=== PATIENT | female | born 1940 | race Caucasian/White ===

== ENCOUNTER → 2017-04-25 | Outpatient (CLI) | payer MEDICARE | END | disposition home or self-care (01) | LOC: LABWHC1 10:49 | PROVIDERS: ATTEND Orthopaedic Surgery | DX: Z01.812 Encounter for preprocedural laboratory examination (principal) | CPT/HCPCS: 87070 ==

== ENCOUNTER → 2017-05-11 | Outpatient (CLI) | payer MEDICARE ==
[2017-05-11 09:01] LABS: EKG EKG PERFORMED
[2017-05-11 09:38] LABS: CH 32.6; CHCM 33.5; HCT 39.4 % (34.0-46.0); HDW 2.22; HGB 13.5 gm/dL (11.4-16.0); MCH 33.4 pg (25.0-35.0); MCHC 34.1 g/dL (31.0-37.0); MCV 97.9 fL (80.0-100.0); Mean Platelet Volume 6.9; RBC 4.03 m/uL (3.80-5.40); RDW 13.8 % (11.5-15.5); WBC 6.5 k/uL (3.8-10.6)
[2017-05-11 09:43] LABS: INR 1.1 (<1.1); Partial Thromboplastin Time 24.8 sec (22.0-30.0); Prothrombin Time 11.5 sec (9.0-12.0)
[2017-05-11 09:44] LABS: Appearance,Urine Cloudy (Clear); Bacteria,Urine Moderate /hpf; Bilirubin,Urine Negative (Negative); Glucose,Urine (UA) Negative (Negative); Ketones,Urine Negative (Negative); Leukocyte Esterase,Urine Large (Negative); Mucus,Urine Rare /hpf; Nitrite,Urine Negative (Negative); PH, Urine 6.5 (5.0-8.0); Particle Count 22800; Protein,Urine Negative (Negative); RBC,Urine 4 /hpf (0-5); Squamous Epithelial Cell,Urine 1 /hpf (0-4); UA Billing (MACRO vs. MICRO) MICRO; Urobilinogen,Urine <2.0 mg/dL (<2.0); WBC,Urine 144 /hpf (0-5)
[2017-05-11 09:47] LABS: ALT 20 U/L (9-52); AST 28 U/L (14-36); Alkaline Phosphatase 63 U/L (38-126); Anion Gap 10 mmol/L; Blood Urea Nitrogen 25 mg/dL (7-17); Calcium 9.4 mg/dL (8.4-10.2); Carbon Dioxide 27 mmol/L (22-30); Chloride 102 mmol/L (98-107); Glucose 88 mg/dL (74-99); Non-African American GFR(MDRD) >60 (>60 ml/min/1.73 sqM); Sodium 139 mmol/L (137-145); Total Bilirubin 0.8 mg/dL (0.2-1.3); Total Protein 6.7 g/dL (6.3-8.2)
[2017-05-11 09:52] LABS: Potassium 4.3 mmol/L (3.5-5.1)
== END | disposition home or self-care (01) ==
LOC: LABPAT 08:53
PROVIDERS: ATTEND Orthopaedic Surgery
DX: Z01.812 Encounter for preprocedural laboratory examination (principal)
CPT/HCPCS: 80053; 81001; 85027; 85610; 85730; 93005

== ENCOUNTER → 2017-05-18 | Outpatient (CLI) | payer MEDICARE ==
[2017-05-18 13:14] LABS: Appearance,Urine Clear (Clear); Bilirubin,Urine Negative (Negative); Glucose,Urine (UA) Negative (Negative); Ketones,Urine Negative (Negative); Leukocyte Esterase,Urine Negative (Negative); Nitrite,Urine Negative (Negative); PH, Urine 6.5 (5.0-8.0); Protein,Urine Negative (Negative); Specific Gravity,Urine 1.012 (1.001-1.035); UA Billing (MACRO vs. MICRO) CHEM; Urobilinogen,Urine <2.0 mg/dL (<2.0)
== END | disposition home or self-care (01) ==
LOC: LABWHC1 12:28
PROVIDERS: ATTEND Family Medicine
DX: N39.0 Urinary tract infection, site not specified (principal)
CPT/HCPCS: 81003

== ENCOUNTER 2017-05-22 06:00 | Inpatient (IN) | payer MEDICARE ==
[2017-05-18 10:14] VITALS: BMI 25.2
[~2017-05-22 06:00] MED LIST: ACETAMINOPHEN TAB 500 MG TAB PO ONE; DEXAMETHASONE SOD PHOSPHATE 10 MG/ML 1 ML VIAL IV ONE; HYDROmorphone 1 MG/ML 1 ML SYRINGE IVP PRN; MELOXICAM 7.5 MG TAB PO ONE; ONDANSETRON 4 MG/2 ML VIAL IVP ONE; TRANEXAMIC ACID 1,000 MG in SODIUM CHLORIDE 0.9% 100 ML IVPB ONE; ceFAZolin 2 GM in SODIUM CHLORIDE 0.9% 100 ML IVPB ONE
[2017-05-22] MEDS: LACTATED RINGERS 1,000 ML IV SCH (06:45)
[2017-05-22] MEDS: fentaNYL (PF) 50 MCG/ML 2 ML AMP IV ONE ×3 (06:56→07:13)
[2017-05-22] MEDS: MIDAZOLAM 2 MG/2 ML VIAL IV ONE ×3 (07:00→07:17)
[2017-05-22] MEDS ORDERED: TRANEXAMIC ACID 1,000 MG/10 ML VIAL ONE (07:24)
[2017-05-22] MEDS ORDERED: PHENYLEPHRINE-0.9% NACL SYG 1 MG/10 ML SYRINGE ONE (07:24)
[2017-05-22] MEDS ORDERED: PROPOFOL 10 MG/ML 100 ML VIAL IV ONE (07:24)
[2017-05-22] MEDS ORDERED: SODIUM CHLORIDE 0.9% 100 ML BAG ONE (07:24)
[2017-05-22] MEDS ORDERED: MIDAZOLAM 2 MG/2 ML VIAL ONE (07:24)
[2017-05-22] MEDS ORDERED: HEPARIN SODIUM,PORCINE 10,000 UNIT/ML 1 ML VIAL ONE (07:24)
[2017-05-22] MEDS ORDERED: HYDROmorphone (PF) 1 MG/ML ONE (07:24)
[2017-05-22] MEDS ORDERED: ceFAZolin 3,000 MG in SODIUM CHLORIDE 0.9% IRRIGATIO 3,000 ML IRRIGATION ONE (07:24)
[2017-05-22] MEDS ORDERED: SODIUM CHLORIDE 0.9% IRRIG 1,000 ML BTL IRRIGATION ONE (07:24)
[2017-05-22] MEDS: ROPIVACAINE 246.25 MG, EPINEPHrine 0.5 MG, KETOROLAC 30 MG, cloNIDine HCL/PF 80 MCG, WA... MISCELLANE ONE ×10 (07:55→08:31)
[2017-05-22] MEDS ORDERED: LACTATED RINGERS 1,000 ML IV ONE (08:47)
--- NOTE | 2017-05-22 08:58 | FL ---
EXAMINATION TYPE: FL guidance operating room, XR Hip Limited RT DATE OF EXAM: 05/22/2017 CLINICAL HISTORY: Right hip arthoplasty. TECHNIQUE: Fluoroscopy. Intraoperative limited views right hip. COMPARISON: None. FINDINGS: Fluoroscopic guidance was provided during right hip arthroplasty procedure performed by Dr Ese Mcallister. A total of 32 seconds of fluoroscopic time was utilized during the procedure and 2 spot images are acquired. Intraoperative images of right hip from frontal projection show metallic hardware that appears satisf actory in position. IMPRESSION: As Above.
--- NOTE | 2017-05-22 08:59 | P.OP ---
Date of Procedure: 05/22/17 Preoperative Diagnosis: Severe osteoarthritis right hip Postoperative Diagnosis: Severe osteoarthritis right hip Procedure(s) Performed: Right total hip arthroplasty with a direct anterior approach Implants: [employer] and nephew Polarstem size 2 standard [employer]hew R3, 3 hole acetabular shell, 48 mm [employer]hew reflection 6.5 mm cancellus screw, 20 mm 3 [employer] R3, XLPE 20 acetabular liner [employer]hew Oxinium femoral head 32 m, +0 All components were press-fit. The articulation is ceramic on polyethylene. Anesthesia: spinal Surgeon: Gamal Mcallister Nuclear Medical Technologist #1: Zahira Goel Estimated Blood Loss (ml): 175 (66 mL returned with Cell Saver) Pathology: other (Femoral head) Condition: stable Disposition: PACU Indications for Procedure: After failure of conservative treatment we discussed the surgical and nonsurgical treatment options at length. Patient wishes to proceed with a total hip arthroplasty with a direct anterior approach. Complications specific to this procedure were discussed at length, including but not limited to infection, leg length discrepancy, dislocation, and nerve injury. Patient is aware of all these complications and informed consent was obtained Operative Findings: The operative findings are consistent with severe osteoarthritis of the right hip Description of Procedure: Patient was seen and evaluated in the preoperative area, consent was reviewed, and the surgical site was marked with a skin marker. Patient was then brought to the operating room and given prophylactic antibiotics intravenously. 1 g of Tranexamic acid was also given. A spinal anesthetic was administered by the anesthesia department. The patient was then placed on the [place] table with the bony prominences well-padded. The hip area was then prepped and draped in usual sterile fashion. A universal timeout was then performed, which confirmed the patient's name, surgical site, ALLERGIES, and procedure being performed. Next the incision site was located at 1 cm distal and 1 cm lateral to the anterior superior iliac spine. The skin and subcutaneous tissues were sharply incised. Incision was carefully dissected down to the fascia overlying the tensor fascia dean muscle. This fascia was then incised in line with the incision. Next, using blunt finger dissection, the tensor fascia dean muscle was dissected off its investing fascia. The muscle was then carefully retracted laterally with a cobra retractor over the lateral neck of the femur. Next, the circumflex vessels were identified and cauterized using the AquaMantis device. The anterior hip capsule was then exposed. The capsule was then opened and an inverted T fashion. Retention sutures were placed in the inferior arms of the capsule. Cobra retractors were then placed intracapsularly. The proximal femur was then visualized. The femoral neck was then osteotomized appropriate level above the lesser trochanter. Small amount of traction was placed with the [place] table. A small wedge of bone was then removed from the remaining femoral head. Next, using a corkscrew femoral head was easily removed from the acetabulum. On gross visual inspection, the femoral head had complete loss of articular cartilage in multiple periarticular osteophytes. Attention was then turned to the acetabulum. the acetabulum was exposed and any remaining labrum was excised. Sequential reaming of the acetabulum was performed using fluoroscopic guidance. When the appropriate size was reached, a trial was then placed. The position and fit of the trial was checked with fluoroscopy. The trial was then removed. Then, using fluoroscopic guidance, the final implant was impacted at 20 of anteversion and 40 of abduction, and fully seated in the acetabulum. 3 screws were then placed in the acetabulum. Again fluoroscopy was used to check position of the screws. Next, the liner was then impacted, with a 20 elevated liner located in the anterior superior quadrant. Component locking was confirmed. Attention was then directed to the femur. With the aid of the [place] table, the femur was externally rotated to approximately 130, extended, and abducted under the opposite leg. A side hook was then placed under the proximal femur, and the side hook elevator was used to elevate the proximal femur. Retractors were then placed. A capsular release was performed, as well as a release of the conjoined tendon, which afforded excellent visualization of the proximal femur. Next, a box osteotome was used to lateralize the proximal femur. A acid correction hand was then used to locate the femoral canal. Sequential broaching was then performed with appropriate size which afforded excellent fixation in the proximal femur. A trial was then placed with appropriate head and neck, and the hip was gently reduced with the aid of the [place] table. Fluoroscopy was then used to check position of the components, as well as to ensure equal leg lengths. The hip was then gently dislocated and the trials were then removed. Final implants were then impacted and the hip was again reduced. Final fluoroscopic x-rays confirmed that the components were in anatomic position, as well as equal leg lengths. The hip was also taken through range of motion, and found to be stable. The hip was then copiously irrigated with antibiotic solution with pulsatile lavage. The hip was then irrigated with Irrisept solution. The soft tissues were then injected with a ropivacaine solution, which consisted of 246.25 mg of ropivacaine, 0.5 mg of epinephrine, 30 mg of Toradol, 80 g of clonidine, and 48.45 mL of sterile water, for a total of 100 mL of fluid injected. A second dose of 1 g of Tranexamic acid was also given. the fascia was then closed with 2-0 strata fix suture. The subcutaneous tissue was closed with 3-0 Vicryl. The subcuticular tissue was closed with 3-0 strata fix suture. The skin was then closed with Dermabond tape. The patient was then transferred to the recovery room in stable condition. The assistant professor of theater NICHOLAS Walker was required due to the complexity of surgery, and the need for skilled surgical tech for positioning, draping, exposure, retraction, and closure of the wound.
[2017-05-22] MEDS ORDERED: DIAZEPAM 5 MG TAB PO PRN ×2 (09:13)
[2017-05-22] MEDS ORDERED: NALOXONE 0.4 MG/ML 1 ML VIAL IV PRN (09:13)
[2017-05-22] MEDS ORDERED: MAGNESIUM HYDROXIDE 2,400 MG/10 ML CUP PO PRN (09:13)
[2017-05-22] MEDS ORDERED: HYDROmorphone 1 MG/ML 1 ML SYRINGE IVP PRN ×3 (09:13)
[2017-05-22] MEDS ORDERED: hydrOXYzine PAMOATE 25 MG CAP PO PRN (09:13)
--- NOTE | 2017-05-22 09:45 | XR ---
EXAMINATION TYPE: XR Hip Limited RT DATE OF EXAM: 05/22/2017 CLINICAL HISTORY: Right hip pain and osteoarthritis. TECHNIQUE: Single AP portable view of right hip is obtained immediately postoperatively. COMPARISON: None. FINDINGS: Metallic hardware from right hip arthroplasty is seen and appears satisfactory in alignment and position. There is evidence of recent surgery with subcutaneous gas and soft tissue swelling no rosa m laterally. IMPRESSION: Metallic hardware from right hip arthroplasty is satisfactory in position.
[2017-05-22] MEDS ORDERED: ACETAMINOPHEN TAB 325 MG TAB PO PRN (15:30)
[2017-05-22] MEDS: ceFAZolin 2 GM in SODIUM CHLORIDE 0.9% 100 ML IVPB SCH ×2 (16:30→23:12)
[2017-05-22] MEDS: HYDROcodone/APAP 5-325MG 1 EACH TAB PO PRN ×2 (17:15→23:23)
[2017-05-22] MEDS: ONDANSETRON 4 MG/2 ML VIAL IVP PRN (18:09)
[2017-05-22] MEDS: ARTIFICIAL TEARS-HYPROMELLOSE DROPS 15 ML BTL BOTH EYES SCH (20:18)
[2017-05-22] MEDS: PSYLLIUM HUSK 100% 6 GM PACKET PO SCH (20:19)
[2017-05-22] MEDS: ASPIRIN 325 MG TAB PO SCH (20:20)
[2017-05-22] MEDS: SENNOSIDES-DOCUSATE SODIUM 1 EACH TAB PO SCH ×2 (20:20→23:23)
[2017-05-22] MEDS: SODIUM CHLORIDE 0.9% 1,000 ML IV SCH (23:12)
[2017-05-23] MEDS: HYDROcodone/APAP 5-325MG 1 EACH TAB PO PRN ×4 (05:20→23:28)
[2017-05-23] MEDS: SODIUM CHLORIDE 0.9% 1,000 ML IV SCH ×2 (05:58→11:25)
--- NOTE | 2017-05-23 07:01 | CONS ---
REASON FOR CONSULTATION: Advice regarding GERD and other multiple medical issues requested by Orthopedics and Dr. Mcallister. HISTORY OF PRESENT ILLNESS: This 76 year old woman with past medical history of chest pain, angina, history of GERD, sleep apnea, hypothyroidism, underwent right hip arthroplasty by Dr. Mcallister. There is no history of fevers, rigors or chills. No history of headache, loss of consciousness or seizures. No history of chest pain or palpitations at this time. Past medical history of GERD, history of chest pain, sleep apnea, hypothyroidism , history of DJD. Medications prior to admission home medications are reviewed and include: 1. Evista 60 mg po daily. 2. Metamucil 5 mg q.h.s. 3. Systane one drop b.i.d. 4. Prilosec 20 mg q48 hours. 5. Multivitamins one daily. 6. Synthroid 176 mcg po Sunday and 18 mcg on other days. 7. Celebrex 100 mg po b.i.d. 8. Vitamin D3 one po daily. 9. Aspirin 81 mg po daily. 10. Tylenol. 1000 mg po t.i.d. ALLERGIES ARE ULTRAM. FAMILY HISTORY: No history of heart disease or stroke in the family. SOCIAL HISTORY: No history of smoking. No history of alcohol. REVIEW OF SYSTEMS: HEENT: No diminished vision. No diminished hearing. CARDIOVASCULAR: No angina or palpitations. RESPIRATIONS: No cough. GI: No nausea or vomiting. : No dysuria. NERVOUS SYSTEM: No numbness or weakness. ALLERGY/IMMUNOLOGY: No asthma or hayfever. MUSCULOSKELETAL: As mentioned earlier. HEMATOLOGY/ONCOLOGY: No anemia. ENDOCRINE: As mentioned earlier. CONSTITUTIONAL: As mentioned earlier. DERMATOLOGY: Negative. RHEUMATOLOGY: Negative. PSYCHIATRY: As mentioned earlier. PHYSICAL EXAMINATION: Alert and oriented times three. Pulse is 70. Blood pressure 130/64. Respiratory rate 16. Temperature 97.4, pulse ox 97% on 2 L. HEENT: Conjunctivae normal. Oral mucosa moist. NECK: No JVD. No carotid bruit. No lymph node enlargement. CARDIOVASCULAR: S1, S2 muffled. No S3, no S4. RESPIRATORY: Breath sounds diminished at the bases. No rhonchi. No crackles. ABDOMEN: Soft, nontender. No mass palpable. LEGS: Status post right hip. Otherwise, nervous system: Higher functions as mentioned. Moves all four limbs. No focal deficits. Lymphatics: No lymph nodes palpable in the neck or axilla. Skin: No ulcer, rash or bleeding. Labs are CBC within normal limits. Biochemistry is iron is 25 and ferritin is 9. ( ) 74. UA shows 144 WBCs previously about a week ago. ASSESSMENT: 1. Status post right hip arthroplasty. 2. History of recent urinary tract infection. 3. Gastroesophageal reflux disease. 4. History of sleep apnea. 5. Hypothyroidism. 6. Degenerative joint disease. RECOMMENDATIONS AND DISCUSSION: This 76 year old woman presented with ( ) recommend to continue the current medications, continue symptomatic treatment. Resume the home medications. I would also recommend repeat CBC in the morning as well as UA with micro also. We will follow the patient closely with you. Thank you Dr. Mcallister for letting us participate in the care of this patient. MELISSA
[2017-05-23] MEDS: LACTATED RINGERS 1,000 ML IV SCH (07:02)
[2017-05-23 07:26] LABS: Basophils % (A) 0 %; CH 32.2; CHCM 34.5; Eosinophils # (A) 0.1 k/uL (0-0.7); Eosinophils % (A) 1 %; HCT 29.4 % (34.0-46.0); HDW 2.33; Luc # (Auto) 0.13; Luc % (Auto) 1; Lymphocytes # (A) 1.4 k/uL (1.0-4.8); Lymphocytes % (A) 15 %; MCH 32.8 pg (25.0-35.0); MCHC 34.9 g/dL (31.0-37.0); Mean Platelet Volume 6.9; Monocytes # (A) 0.6 k/uL (0-1.0); Monocytes % (A) 7 %; Neutrophils # (A) 7.4 k/uL (1.3-7.7); Neutrophils % (A) 77 %; RBC 3.13 m/uL (3.80-5.40); RDW 13.8 % (11.5-15.5); WBC 9.7 k/uL (3.8-10.6)
[2017-05-23 07:39] LABS: HGB 10.2 gm/dL (11.4-16.0)
[2017-05-23] MEDS: ARTIFICIAL TEARS-HYPROMELLOSE DROPS 15 ML BTL BOTH EYES SCH ×2 (08:46→20:44)
[2017-05-23] MEDS: LEVOTHYROXINE 88 MCG TAB PO SCH (08:46)
[2017-05-23] MEDS: CALCIUM CARB-VIT D 500MG-200UN 1 EACH TAB PO SCH (08:48)
[2017-05-23] MEDS: ASPIRIN 325 MG TAB PO SCH ×2 (08:48→20:44)
[2017-05-23] MEDS: MELOXICAM 7.5 MG TAB PO SCH (08:49)
--- NOTE | 2017-05-23 08:56 | P.PN ---
Subjective Principal diagnosis: Status post right total hip arthroplasty This is a well-appearing 76-year-old female who is status post right total hip arthroplasty. This is postoperative day #1. Patient is seen and evaluated at bedside with Dr. Gamal Mcallister. Patient states her pain is under control but is slightly worse today. Patient states she has been up out of bed couple of times and is to do more physical therapy today. Otherwise patient states she is doing well and has no new complaints. Objective - Vital Signs Vital signs: Vital Signs Temp 97.8 F 05/23/17 07:23 Pulse 74 05/23/17 07:34 Resp 18 05/23/17 07:34 BP 111/53 05/23/17 07:23 Pulse Ox 95 05/23/17 07:23 Intake & Output 05/22/17 05/23/17 05/23/17 18:59 06:59 18:59 Intake Total 1201 590 180 Output Total 375 600 Balance 826 -10 180 Weight 58.513 kg 58.513 kg Intake: IV 1001 Intake, IV Titration 240 Amount Sodium Chloride 0.9% 1, 240 000 ml @ 65 mls/hr IV . [id number] [facility] Rx#:[id number] Oral 200 350 180 Output: Urine 200 600 Estimated Blood Loss 175 Other: Voiding Method Bedside Commode Toilet # Voids 3 - Exam Vital signs are stable. Patient is in no acute distress and is alert and oriented 3. Calf is soft and nontender. Dressing is intact. Neurovascular status intact. Patient has full foot and ankle motion. - Labs CBC & Chem 7: 05/23/17 06:34 Labs: Abnormal Lab Results - Last 24 Hours (Table) 05/23/17 Range/Units 06:34 RBC 3.13 L (3.80-5.40) m/uL Hgb 10.2 L D (11.4-16.0) gm/dL Hct 29.4 L (34.0-46.0) % Assessment and Plan Plan: Continue routine postop care. Continue antocoagulation. Weightbearing as tolerated with a walker Daily dressing changes, keep incision clean and dry Patient is planning to discharge to rehab on Sunday
[2017-05-23] MEDS: MULTIVITAMINS, THERA 1 EACH TAB PO SCH (11:23)
[2017-05-23] MEDS: RALOXIFENE 60 MG TAB PO SCH (15:18)
--- NOTE | 2017-05-23 15:25 | P.PN ---
Subjective This is a well-appearing 76-year-old female who is status post right total hip arthroplasty. Patient will be restarted back on her Evasta. REVIEW OF SYSTEMS: CARDIOVASCULAR: No chest pain, no orthopnea, no PND, no palpitations. PULMONARY: Denied any shortness of breath. No cough or hemoptysis. GASTROINTESTINAL: No diarrhea, nausea or vomiting. No abdominal pain. Normoactive bowel sounds. NEUROLOGIC: No headaches, no weakness, no numbness. Objective - Vital Signs Vital signs: Vital Signs Temp 97 F L 05/23/17 13:35 Pulse 82 05/23/17 13:35 Resp 16 05/23/17 13:35 BP 90/53 05/23/17 13:35 Pulse Ox 96 05/23/17 13:35 Intake & Output 05/22/17 05/23/17 05/23/17 18:59 06:59 18:59 Intake Total 1201 590 430 Output Total 375 600 Balance 826 -10 430 Weight 58.513 kg 58.513 kg Intake: IV 1001 250 Sodium Chloride 0.9% 1, 250 000 ml @ 65 mls/hr IV . [id number] [facility] Rx#:[id number] Intake, IV Titration 240 Amount Sodium Chloride 0.9% 1, 240 000 ml @ 65 mls/hr IV . [id number] [facility] Rx#:[id number] Oral 200 350 180 Output: Urine 200 600 Estimated Blood Loss 175 Other: Voiding Method Bedside Commode Toilet # Voids 3 - Exam PHYSICAL EXAMINATION: GENERAL: The patient is alert and oriented x3, not in any acute distress. Well developed, well nourished. HEENT: Pupils are round and equally reacting to light. EOMI. No scleral icterus. No conjunctival pallor. Normocephalic, atraumatic. No pharyngeal erythema. No thyromegaly. CARDIOVASCULAR: S1 and S2 present. No murmurs, rubs, or gallops. PULMONARY: Chest is clear to auscultation, no wheezing or crackles. ABDOMEN: Soft, nontender, nondistended, normoactive bowel sounds. No palpable organomegaly. MUSCULOSKELETAL: Deferred to primary service EXTREMITIES: No cyanosis, clubbing, or pedal edema. NEUROLOGICAL: Gross neurological examination did not reveal any focal deficits. SKIN: No rashes. - Labs CBC & Chem 7: 05/23/17 06:34 Labs: Abnormal Lab Results - Last 24 Hours (Table) 05/23/17 Range/Units 06:34 RBC 3.13 L (3.80-5.40) m/uL Hgb 10.2 L D (11.4-16.0) gm/dL Hct 29.4 L (34.0-46.0) % Assessment and Plan Plan: #1 status post right hip arthroplasty: No significant postoperative complications. And patient is clinically doing well. #2 hypothyroidism 3 sleep apnea on CPAP machine #4 history of breast cancer for which patient is on Evasta, which is being continued. #5 gastroesophageal reflux disease. For above-mentioned chronic medical problems Sicherman to continue her home medications, we can need to follow the patient on as-needed basis.
[2017-05-23] MEDS: PSYLLIUM HUSK 100% 6 GM PACKET PO SCH (20:44)
[2017-05-24] MEDS: HYDROcodone/APAP 5-325MG 1 EACH TAB PO PRN ×4 (05:39→19:53)
[2017-05-24] MEDS: ASPIRIN 325 MG TAB PO SCH ×2 (08:05→20:53)
[2017-05-24] MEDS: LEVOTHYROXINE 88 MCG TAB PO SCH (08:05)
[2017-05-24] MEDS: CALCIUM CARB-VIT D 500MG-200UN 1 EACH TAB PO SCH (08:06)
[2017-05-24] MEDS: ARTIFICIAL TEARS-HYPROMELLOSE DROPS 15 ML BTL BOTH EYES SCH ×2 (08:06→20:53)
[2017-05-24] MEDS: MELOXICAM 7.5 MG TAB PO SCH (08:06)
--- NOTE | 2017-05-24 08:15 | P.PN ---
Subjective Principal diagnosis: Status post right total hip arthroplasty This is a well-appearing 76-year-old female who is status post right total hip arthroplasty. This is postoperative day #2. Patient states her pain has been under control with [place]. Patient states she was out of bed with physical therapy yesterday and this went well. Patient has no new complaints today. Objective - Vital Signs Vital signs: Vital Signs Temp 98.2 F 05/24/17 08:03 Pulse 83 05/24/17 08:03 Resp 18 05/24/17 08:03 BP 123/64 05/24/17 08:03 Pulse Ox 97 05/24/17 08:03 Intake & Output 05/23/17 05/24/17 05/24/17 18:59 06:59 18:59 Intake Total 430 Balance 430 Weight 58.513 kg Intake: IV 250 Sodium Chloride 0.9% 1, 250 000 ml @ 65 mls/hr IV . [id number] [facility] Rx#:[id number] Oral 180 Other: Voiding Method Toilet Toilet # Voids 2 - Exam Vital signs are stable. Patient is in no acute distress and is alert and oriented 3. Calf is soft and nontender. Incision is clean, dry and intact. Neurovascular status intact. Patient has full foot and ankle motion. - Labs CBC & Chem 7: 05/23/17 06:34 Assessment and Plan Plan: Continue routine postop care. Continue antocoagulation. Weightbearing as tolerated with a walker Daily dressing changes, keep incision clean and dry Patient is planning to discharge to rehab on Sunday
[2017-05-24] MEDS ORDERED: PANTOPRAZOLE 40 MG TABLET PO SCH (09:00)
[2017-05-24] MEDS: RALOXIFENE 60 MG TAB PO SCH (09:00)
[2017-05-24] MEDS: ONDANSETRON 4 MG/2 ML VIAL IVP PRN (09:00)
--- NOTE | 2017-05-24 11:51 | P.PN ---
Subjective This is [id number] female who is status post right total hip arthroplasty. No significant overnight events. Patient can be discharged from medical perspective. REVIEW OF SYSTEMS: CARDIOVASCULAR: No chest pain, no orthopnea, no PND, no palpitations. PULMONARY: Denied any shortness of breath. No cough or hemoptysis. GASTROINTESTINAL: No diarrhea, nausea or vomiting. No abdominal pain. Normoactive bowel sounds. NEUROLOGIC: No headaches, no weakness, no numbness. Objective - Vital Signs Vital signs: Vital Signs Temp 98.2 F 05/24/17 08:03 Pulse 83 05/24/17 08:03 Resp 18 05/24/17 08:03 BP 123/64 05/24/17 08:03 Pulse Ox 97 05/24/17 08:03 Intake & Output 05/23/17 05/24/17 05/24/17 18:59 06:59 18:59 Intake Total 430 Output Total 400 Balance 430 -400 Weight 58.513 kg 58.513 kg Intake: IV 250 Sodium Chloride 0.9% 1, 250 000 ml @ 65 mls/hr IV . [id number] [facility] Rx#:[id number] Oral 180 Output: Urine 400 Other: Voiding Method Toilet Toilet Toilet # Voids 2 1 - Exam PHYSICAL EXAMINATION: GENERAL: The patient is alert and oriented x3, not in any acute distress. Well developed, well nourished. HEENT: Pupils are round and equally reacting to light. EOMI. No scleral icterus. No conjunctival pallor. Normocephalic, atraumatic. No pharyngeal erythema. No thyromegaly. CARDIOVASCULAR: S1 and S2 present. No murmurs, rubs, or gallops. PULMONARY: Chest is clear to auscultation, no wheezing or crackles. ABDOMEN: Soft, nontender, nondistended, normoactive bowel sounds. No palpable organomegaly. MUSCULOSKELETAL: Deferred to primary service EXTREMITIES: No cyanosis, clubbing, or pedal edema. NEUROLOGICAL: Gross neurological examination did not reveal any focal deficits. SKIN: No rashes. - Labs CBC & Chem 7: 05/23/17 06:34 Assessment and Plan Plan: #1 status post right hip arthroplasty: No significant postoperative complications. And patient is clinically doing well. #2 hypothyroidism 3 sleep apnea on CPAP machine #4 history of breast cancer for which patient is on Evasta, which is being continued. #5 gastroesophageal reflux disease. For above-mentioned chronic medical problems continue her home medications, we will sign off at this time. Call us back if needed.
[2017-05-24] MEDS: MULTIVITAMINS, THERA 1 EACH TAB PO SCH (12:30)
[2017-05-24 15:09] VITALS: RESP 16
[2017-05-24] MEDS: PSYLLIUM HUSK 100% 6 GM PACKET PO SCH (20:53)
[2017-05-24] MEDS: SENNOSIDES-DOCUSATE SODIUM 1 EACH TAB PO SCH (22:02)
[2017-05-25] MEDS: HYDROcodone/APAP 5-325MG 1 EACH TAB PO PRN ×2 (01:54→09:06)
[2017-05-25] MEDS: LEVOTHYROXINE 88 MCG TAB PO SCH (05:49)
[2017-05-25 07:02] LABS: Basophils % (A) 0 %; CH 32.4; CHCM 33.8; Eosinophils # (A) 0.3 k/uL (0-0.7); Eosinophils % (A) 4 %; HCT 30.3 % (34.0-46.0); HDW 2.31; HGB 10.4 gm/dL (11.4-16.0); Luc # (Auto) 0.19; Luc % (Auto) 3; Lymphocytes # (A) 1.3 k/uL (1.0-4.8); Lymphocytes % (A) 18 %; MCH 33.1 pg (25.0-35.0); MCHC 34.4 g/dL (31.0-37.0); MCV 96.2 fL (80.0-100.0); Mean Platelet Volume 7.1; Monocytes # (A) 0.4 k/uL (0-1.0); Monocytes % (A) 6 %; Neutrophils # (A) 4.9 k/uL (1.3-7.7); Neutrophils % (A) 68 %; RBC 3.15 m/uL (3.80-5.40); RDW 13.7 % (11.5-15.5); WBC 7.2 k/uL (3.8-10.6); WBC (Perox) 7.47
[2017-05-25] MEDS: LACTATED RINGERS 1,000 ML IV SCH ×2 (07:07→07:54)
[2017-05-25] MEDS: SODIUM CHLORIDE 0.9% 1,000 ML IV SCH ×2 (07:08→07:12)
[2017-05-25 07:52] VITALS: BP 137/85; PULSE 85; TEMP 98
[2017-05-25] MEDS: ARTIFICIAL TEARS-HYPROMELLOSE DROPS 15 ML BTL BOTH EYES SCH (07:52)
[2017-05-25] MEDS: MELOXICAM 7.5 MG TAB PO SCH (07:53)
[2017-05-25] MEDS: ASPIRIN 325 MG TAB PO SCH (07:53)
[2017-05-25] MEDS: MULTIVITAMINS, THERA 1 EACH TAB PO SCH (07:53)
[2017-05-25] MEDS: RALOXIFENE 60 MG TAB PO SCH (07:53)
[2017-05-25] MEDS: CALCIUM CARB-VIT D 500MG-200UN 1 EACH TAB PO SCH (07:53)
--- NOTE | 2017-05-25 08:13 | P.DS ---
Providers Date of admission: 05/22/17 06:00 Expected date of discharge: 05/25/17 Attending physician: Gamal Mcallister Consults: 05/22/17 09:13 Consult Physician Routine Consulting Provider: Catrachita Berger Consult Reason/Comments: medical management Do you want consulting provider notified?: Yes Primary care physician: Lashanda [facility] Course: This is a 76-year-old female with known history of degenerative arthritis of the right hip. The patient presents for evaluation. After discussion and consideration patient elects to proceed with total hip arthroplasty. The patient is seen preoperatively by Dr. Mcallister and cleared for surgery. Patient is admitted to [facility] on 05/22/2017 for total hip arthroplasty. The procedures performed without complication or sequelae. The patient is doing well postoperatively. Labs and vital signs are stable on day of discharge. On day of discharge patient's hip incision is healing well. There is minimal erythema. There is no drainage noted at this time. There is minimal soft tissue swelling to the hip and thigh. Patient has full foot and ankle motion without difficulty or pain. Neurovascular status to the right lower extremity is intact. Patient is discharged to rehab in good condition.Please see med rec for accurate list of home medications. Plan - Discharge Summary New Discharge Prescriptions: New Aspirin 325 mg PO BID #60 tab HYDROcodone/APAP 5-325MG [[place] 5-325] 1 - 2 tab PO Q4-6H PRN #90 tab PRN Reason: Pain Sennosides-Docusate Sodium [Senokot-S] 1 tab PO BID #60 tablet No Action Raloxifene [Evista] 60 mg PO DAILY Omeprazole [PriLOSEC] 20 mg PO Q48H Levothyroxine Sodium [Synthroid] 88 mcg PO SUMOWETHFRSA Levothyroxine Sodium [Synthroid] 176 mcg PO TU Multivitamins, Thera [Multivitamin (formulary)] 1 tab PO DAILY Calcium Carbonate/Vitamin D3 [Calcium 600-Vit D3 400 Tablet] 1 tab PO DAILY Celecoxib [CeleBREX] 100 mg PO BID Psyllium Husk (with Sugar) [Metamucil Powder] 5 gm PO HS Propylene Glycol/Peg 400/Pf [Systane 0.3-0.4% Eye Drops] 1 drop BOTH EYES BID Aspirin [Adult Low Dose Aspirin EC] 81 mg PO DAILY Acetaminophen Tab [Tylenol Tab] 1,000 mg PO TID Discharge Medication List Levothyroxine Sodium [Synthroid] 88 mcg PO SUMOWETHFRSA 05/29/14 [History] Omeprazole [PriLOSEC] 20 mg PO Q48H 05/29/14 [History] Raloxifene [Evista] 60 mg PO DAILY 05/29/14 [History] Calcium Carbonate/Vitamin D3 [Calcium 600-Vit D3 400 Tablet] 1 tab PO DAILY 07/27 [History] Levothyroxine Sodium [Synthroid] 176 mcg PO TU 09/20/15 [History] Multivitamins, Thera [Multivitamin (formulary)] 1 tab PO DAILY 09/20/15 [History ] Acetaminophen Tab [Tylenol Tab] 1,000 mg PO TID 05/18/17 [History] Aspirin [Adult Low Dose Aspirin EC] 81 mg PO DAILY 05/18/17 [History] Celecoxib [CeleBREX] 100 mg PO BID 05/18/17 [History] Propylene Glycol/Peg 400/Pf [Systane 0.3-0.4% Eye Drops] 1 drop BOTH EYES BID [History] Psyllium Husk (with Sugar) [Metamucil Powder] 5 gm PO HS 05/18/17 [History] Aspirin 325 mg PO BID #60 tab 05/25/17 [Rx] HYDROcodone/APAP 5-325MG [[place] 5-325] 1 - 2 tab PO Q4-6H PRN #90 tab 05/25/17 [ Rx] Sennosides-Docusate Sodium [Senokot-S] 1 tab PO BID #60 tablet 05/25/17 [Rx] Follow up Appointment(s)/Referral(s): Gamal Mcallister DO [Doctor of Osteopathic Medicine] - 2 Weeks Activity/Diet/Wound Care/Special Instructions: Weightbearing as tolerated with walker May shower after 2 days if no drainage from the incision Follow-up with [facility] in 2 weeks with any questions or concerns Discharge Disposition: TRANSFER TO SNF/ECF
[2017-05-29] MEDS ORDERED: LEVOTHYROXINE 88 MCG TAB PO SCH (06:30)
== END 2017-05-25 13:02 | DRG 470 ==
LOC: 2ORMAIN 06:00 → 3SUR 10:01
PROVIDERS: ADMIT Orthopaedic Surgery; ATTEND Orthopaedic Surgery
PROC: 0SR904A Replacement of Right Hip Joint with Ceramic on Polyethylene Synthetic Substitute, Uncemented, Open Approach (ICD-10-PCS; principal; 2017-05-22 07:30)
DX: M16.11 Unilateral primary osteoarthritis, right hip (principal); I10 Essential (primary) hypertension; E03.9 Hypothyroidism, unspecified; G47.30 Sleep apnea, unspecified; K21.9 Gastro-esophageal reflux disease without esophagitis; H91.90 Unspecified hearing loss, unspecified ear; Z79.82 Long term (current) use of aspirin; Z79.899 Other long term (current) drug therapy; Z96.651 Presence of right artificial knee joint; Z85.3 Personal history of malignant neoplasm of breast
CPT/HCPCS: 73501; 85025; 86850; 86891; 86900; 86901; 88300

== ENCOUNTER → 2018-03-05 | Outpatient (CLI) | payer MEDICARE ==
[2018-03-05 09:55] LABS: Basophils % (A) 0 %; Eosinophils # (A) 0.2 k/uL (0-0.7); Eosinophils % (A) 3 %; HCT 39.8 % (34.0-46.0); HGB 13.2 gm/dL (11.4-16.0); Lymphocytes % (A) 18 %; MCH 30.2 pg (25.0-35.0); MCHC 33.2 g/dL (31.0-37.0); Mean Platelet Volume 6.7; Monocytes # (A) 0.3 k/uL (0-1.0); Monocytes % (A) 6 %; Neutrophils # (A) 3.9 k/uL (1.3-7.7); Neutrophils % (A) 70 %; Platelet Count 237 k/uL (150-450); RBC 4.37 m/uL (3.80-5.40); RDW 13.6 % (11.5-15.5); WBC 5.5 k/uL (3.8-10.6)
[2018-03-05 10:18] LABS: ALT 21 U/L (9-52); AST 25 U/L (14-36); Albumin 3.9 g/dL (3.5-5.0); Alkaline Phosphatase 71 U/L (38-126); Anion Gap 12 mmol/L; Blood Urea Nitrogen 18 mg/dL (7-17); Calcium 9.2 mg/dL (8.4-10.2); Carbon Dioxide 27 mmol/L (22-30); Chloride 104 mmol/L (98-107); Cholesterol 192 mg/dL (<200); Glucose 83 mg/dL (74-99); HDL Cholesterol 73 mg/dL (40-60); LDL Cholesterol,Calculated 101 mg/dL (0-99); Potassium 4.2 mmol/L (3.5-5.1); Sodium 143 mmol/L (137-145); Total Bilirubin 0.6 mg/dL (0.2-1.3); Total Protein 6.6 g/dL (6.3-8.2); Triglycerides 91 mg/dL (<150)
== END | disposition home or self-care (01) ==
LOC: LABWHC1 08:56
PROVIDERS: ATTEND Family Medicine
DX: I10 Essential (primary) hypertension (principal)
CPT/HCPCS: 36415; 80053; 80061; 84443; 85025

== ENCOUNTER → 2018-08-28 | Outpatient (CLI) | payer MEDICARE ==
[2018-08-28 09:32] LABS: Basophils % (A) 1 %; Eosinophils # (A) 0.2 k/uL (0-0.7); Eosinophils % (A) 3 %; HCT 43.1 % (34.0-46.0); HGB 13.8 gm/dL (11.4-16.0); Lymphocytes # (A) 1.6 k/uL (1.0-4.8); Lymphocytes % (A) 25 %; MCH 30.3 pg (25.0-35.0); MCV 94.7 fL (80.0-100.0); Mean Platelet Volume 6.9; Monocytes # (A) 0.3 k/uL (0-1.0); Monocytes % (A) 5 %; Neutrophils # (A) 4.2 k/uL (1.3-7.7); Neutrophils % (A) 64 %; Platelet Count 243 k/uL (150-450); RBC 4.55 m/uL (3.80-5.40); RDW 12.9 % (11.5-15.5); WBC 6.6 k/uL (3.8-10.6)
[2018-08-28 09:51] LABS: ALT 25 U/L (9-52); AST 31 U/L (14-36); Albumin 3.8 g/dL (3.5-5.0); Alkaline Phosphatase 64 U/L (38-126); Anion Gap 9 mmol/L; Blood Urea Nitrogen 17 mg/dL (7-17); Calcium 9.5 mg/dL (8.4-10.2); Carbon Dioxide 27 mmol/L (22-30); Chloride 105 mmol/L (98-107); Cholesterol 198 mg/dL (<200); Glucose 85 mg/dL (74-99); HDL Cholesterol 75 mg/dL (40-60); LDL Cholesterol,Calculated 105 mg/dL (0-99); Potassium 4.5 mmol/L (3.5-5.1); Sodium 141 mmol/L (137-145); Total Bilirubin 0.5 mg/dL (0.2-1.3); Total Protein 6.9 g/dL (6.3-8.2); Triglycerides 88 mg/dL (<150)
== END | disposition home or self-care (01) ==
LOC: LABWHC1 08:30
PROVIDERS: ATTEND Family Medicine
DX: E03.9 Hypothyroidism, unspecified (principal); I10 Essential (primary) hypertension
CPT/HCPCS: 36415; 80053; 80061; 84443; 85025

== ENCOUNTER → 2019-12-17 | Outpatient (CLI) | payer MEDICARE ==
[2019-12-17 10:41] LABS: Basophils % (A) 1 %; Eosinophils # (A) 0.1 k/uL (0-0.7); Eosinophils % (A) 2 %; HCT 44.2 % (34.0-46.0); Lymphocytes % (A) 16 %; MCH 30.2 pg (25.0-35.0); MCHC 31.5 g/dL (31.0-37.0); MCV 95.7 fL (80.0-100.0); Mean Platelet Volume 7.5; Monocytes # (A) 0.3 k/uL (0-1.0); Monocytes % (A) 5 %; Neutrophils # (A) 4.8 k/uL (1.3-7.7); Neutrophils % (A) 75 %; Platelet Count 268 k/uL (150-450); RBC 4.62 m/uL (3.80-5.40); RDW 12.8 % (11.5-15.5); WBC 6.4 k/uL (3.8-10.6)
[2019-12-17 16:40] LABS: African American GFR (CKD) 94.8 (60.0-200.0); Albumin 4.1 g/dL (3.80-4.90); Albumin/Globulin Ratio 1.86 (1.60-3.17); Anion Gap 8.8 mmol/L (4.00-12.00); BUN/Creat Ratio 25.71 Ratio (12.00-20.00); Calcium 9.6 mg/dL (8.7-10.3); Carbon Dioxide 27.2 mmol/L (21.6-31.8); Chol/HDL Ratio 2.27; Globulin 2.2 g/dL (1.6-3.3); LDL Cholesterol,Calculated 98.8 mg/dL (0.0-131.0); Non-African American GFR(CKD) 81.8 (60.0-200.0); Potassium 4.7 mmol/L (3.5-5.5); Total Bilirubin 0.5 mg/dL (0.2-1.2); Total Protein 6.3 g/dL (6.2-8.2); VLDL Calculation 13.2 mg/dL (5.00-40.00)
== END | disposition home or self-care (01) ==
LOC: LABWHC1 09:05
PROVIDERS: ATTEND Family Medicine
DX: E03.9 Hypothyroidism, unspecified (principal); I10 Essential (primary) hypertension
CPT/HCPCS: 36415; 80053; 80061; 84443; 85025

== ENCOUNTER → 2019-12-24 | Outpatient (CLI) | payer MEDICARE ==
--- NOTE | 2019-12-24 10:59 | XR ---
EXAMINATION TYPE: XR finger RT DATE OF EXAM: 12/24/2019 COMPARISON: NONE HISTORY: Right fifth digit pain after injury. Limited range of motion. TECHNIQUE: 3 views of the fifth right finger were performed. FINDINGS: There is a displaced chip fracture fragment of the dorsal aspect of the base of the fifth d istal phalanx. This fracture fragment measures 2 mm and is not comminuted. This is displaced 2 mm pro ximally. There is mild overlying soft tissue swelling. Flexion deformity at the distal interphalangea l joint appears fixed. No additional fracture is seen. Diffuse osseous demineralization. IMPRESSION: Noncomminuted, minimally displaced avulsion fracture fragment of the dorsal base of the f ifth distal phalanx of the right hand. Given the fixed flexion deformity at the distal interphalangea l joint orthopedic consultation is recommended.
== END | disposition home or self-care (01) ==
LOC: LABWHC1 10:29
PROVIDERS: ATTEND Family Medicine
DX: S62.636A Displaced fracture of distal phalanx of right little finger, initial encounter for closed fracture (principal)

== ENCOUNTER 2020-05-19 14:33 | Emergency (ER) | payer MEDICARE ==
[2020-05-19] MEDS ORDERED: SODIUM CHLORIDE 0.9% 1,000 ML IV STA (15:44)
[2020-05-19] MEDS ORDERED: KETOROLAC 30 MG/ML 1 ML VIAL IVP STA (15:44)
[2020-05-19] MEDS ORDERED: ONDANSETRON 4 MG/2 ML VIAL IVP STA (15:45)
--- NOTE | 2020-05-19 16:06 | ED ---
Back Pain HPI - General Chief Complaint: Back Pain/Injury Stated Complaint: back pain Time Seen by Provider: 05/19/20 15:25 Source: patient Limitations: no limitations - History of Present Illness Initial Comments: Patient is an 79-year-old female presenting to the emergency Department with complaints of left sided flank pain that started this morning. She states it started out as a small ache but then has steadily been progressing throughout the day and now it's a very sharp, severe pain. She states it radiates around the left side. She states she has had a recent injection in her lower back for pain but states that pain is usually a lot lower. She denies any numbness and tingling into her extremities, bowel or bladder incontinence. She does admit to decreased urinary frequency today. She denies history of kidney stones. She admits to 2 previous bladder surgeries, no other abdominal surgeries. She admits to mild nausea, no vomiting or diarrhea. She denies recent fever, chills. She denies chest pain or shortness of breath. She has no further complaints at this time. Upon arrival to the ER, her vitals are stable. - Related Data Home Medications Medication Instructions Recorded Confirmed Levothyroxine Sodium [Synthroid] 88 mcg PO SUMOWETHFRSA 05/29/14 05/22/17 Omeprazole [PriLOSEC] 20 mg PO Q48H 05/29/14 05/22/17 Raloxifene [Evista] 60 mg PO DAILY 05/29/14 05/22/17 Calcium Carbonate/Vitamin D3 1 tab PO DAILY 09/20/15 05/22/17 [Calcium 600-Vit D3 400 Tablet] Levothyroxine Sodium [Synthroid] 176 mcg PO TU 09/20/15 05/22/17 Multivitamins, Thera [Multivitamin 1 tab PO DAILY 09/20/15 05/22/17 (formulary)] Acetaminophen Tab [Tylenol Tab] 1,000 mg PO TID 05/18/17 05/22/17 Aspirin [Adult Low Dose Aspirin EC] 81 mg PO DAILY 05/18/17 05/22/17 Celecoxib [CeleBREX] 100 mg PO BID 05/18/17 05/22/17 Propylene Glycol/Peg 400/Pf 1 drop BOTH EYES BID 05/18/17 05/22/17 [Systane 0.3-0.4% Eye Drops] Psyllium Husk (with Sugar) 5 gm PO HS 05/18/17 05/22/17 [Metamucil Powder] Previous Rx's Medication Instructions Recorded Aspirin 325 mg PO BID #60 tab 05/25/17 HYDROcodone/APAP 5-325MG [[place] 1 - 2 tab PO Q4-6H PRN #90 tab 05/25/17 5-325] Sennosides-Docusate Sodium 1 tab PO BID #60 tablet 05/25/17 [Senokot-S] Cephalexin [Keflex] 500 mg PO BID 10 Days #20 cap 05/19/20 Hydrocodone/Acetaminophen [[place] 1 tab PO Q6HR PRN #10 tab 05/19/20 5-325] Allergies Allergy/AdvReac Type Severity Reaction Status Date / Time promethazine Allergy Nausea & Verified 05/19/20 14:58 Vomiting & Diarrhea tramadol [From Ultram] AdvReac severe Verified 05/19/20 14:58 headache and n/v Review of Systems ROS Statement: Those systems with pertinent positive or pertinent negative responses have been documented in the HPI. ROS Other: All systems not noted in ROS Statement are negative. Past Medical History Past Medical History: Chest Pain / Angina, GERD/Reflux, Sleep Apnea/CPAP/BIPAP, Thyroid Disorder Additional Past Medical History / Comment(s): "low hemoglobin" ,sciatica, does not use cpap,urinary leakage History of Any Multi-Drug Resistant Organisms: None Reported Past Surgical History: Joint Replacement, Orthopedic Surgery Additional Past Surgical History / Comment(s): thyroid surgery, rt knee arthroscopic x 2 and replacement,bladder susp,bladder procedure,pain clinic proc Past Anesthesia/Blood Transfusion Reactions: Previous Problems w/ Anesthesia, Postoperative Nausea & Vomiting (PONV) Additional Past Anesthesia/Blood Transfusion Reaction / Comment(s): took long time to come out Past Psychological History: No Psychological Hx Reported Smoking Status: Never smoker Past Alcohol Use History: None Reported Past Drug Use History: None Reported - Past Family History Father History Unknown: Yes Family Medical History: No Reported History Mother History Unknown: Yes Family Medical History: No Reported History General Exam - General Exam Comments Initial Comments: GENERAL: Well-appearing, well-nourished and in no acute distress. HEAD: Atraumatic, normocephalic. EYES: Pupils equal round and reactive to light, extraocular movements intact, sclera anicteric, conjunctiva are normal. ENT: TMs normal, nares patent, oropharynx clear without exudates. Moist mucous membranes. NECK: Normal range of motion, supple without lymphadenopathy or JVD. LUNGS: Breath sounds clear to auscultation bilaterally and equal. No wheezes rales or rhonchi. HEART: Regular rate and rhythm without murmurs, rubs or gallops. ABDOMEN: Soft, nontender, normoactive bowel sounds. No guarding, no rebound. No masses appreciated. : Deferred EXTREMITIES: Normal range of motion, no pitting or edema. No clubbing or cyanosis. 5 out of 5 strength in lower extremities bilaterally, sensation is equal bilaterally. Minimal pain with palpation of the left flank area. NEUROLOGICAL: Cranial nerves II through XII grossly intact. Normal speech, normal gait. PSYCH: Normal mood, normal affect. SKIN: Warm, Dry, normal turgor, no rashes or lesions noted. Limitations: no limitations Course Vital Signs 05/19/20 05/19/20 05/19/20 14:52 18:05 19:50 Temperature 98.4 F 98.6 F Pulse Rate 76 71 64 Respiratory 16 14 16 Rate Blood Pressure 128/71 149/77 141/80 O2 Sat by Pulse 96 98 95 Oximetry Medical Decision Making - Medical Decision Making Patient is an 79-year-old female presenting with complaints of pain in her left flank area since this morning. Her vitals are stable, afebrile. She does have history of bladder surgeries, no history of kidney stones. Labs show normal white count, electrolytes normal, lactic acid is 1.5. Urine does show large amount leukocyte esterase, WBCs, bacteria. CT of the abdomen and pelvis shows nonobstructing small renal calculi mostly on the right side, mild gastric wall thickening could relate to mild gastritis, no other abnormal findings. Patient was given fluids, pain control and Zofran. She states her pain has decreased some. I discussed with patient this is most likely pyelonephritis and/or related to muscle spasm. I did special needs caregiver her a dose of Rocephin in the ER and she'll be continued on Keflex for 10 days. I did recommend follow-up with her PCP in one to 3 days. She was still complaining of pain and worry about pain at home so I did send a prescription for [place]. Patient is stable for discharge and she is in agreement with this plan of care. Return parameters were discussed with the patient she verbalized understanding. Case discussed with Grazyna Glover. - Lab Data Result diagrams: 05/19/20 16:40 05/19/20 16:40 Lab Results 05/19/20 05/19/20 05/19/20 Range/Units 16:40 16:40 16:41 WBC 7.9 (3.8-10.6) k/uL RBC 4.38 (3.80-5.40) m/uL Hgb 13.4 (11.4-16.0) gm/dL Hct 42.1 (34.0-46.0) % MCV 96.2 (80.0-100.0) fL MCH 30.5 (25.0-35.0) pg MCHC 31.7 (31.0-37.0) g/dL RDW 13.0 (11.5-15.5) % Plt Count 207 (150-450) k/uL Neutrophils % 78 % Lymphocytes % 14 % Monocytes % 5 % Eosinophils % 2 % Basophils % 0 % Neutrophils # 6.2 (1.3-7.7) k/uL Lymphocytes # 1.1 (1.0-4.8) k/uL Monocytes # 0.4 (0-1.0) k/uL Eosinophils # 0.1 (0-0.7) k/uL Basophils # 0.0 (0-0.2) k/uL Sodium 133 L (137-145) mmol/L Potassium 4.9 (3.5-5.1) mmol/L Chloride 103 (98-107) mmol/L Carbon Dioxide 20 L (22-30) mmol/L Anion Gap 10 mmol/L BUN 17 (7-17) mg/dL Creatinine 0.62 (0.52-1.04) mg/dL Est GFR (CKD-EPI)AfAm >90 (>60 ml/min/1.73 sqM) Est GFR (CKD-EPI)NonAf 86 (>60 ml/min/1.73 sqM) Glucose 92 (74-99) mg/dL Plasma Lactic Acid Bull 1.5 (0.7-2.0) mmol/L Calcium 9.2 (8.4-10.2) mg/dL Total Bilirubin 0.7 (0.2-1.3) mg/dL AST 38 H (14-36) U/L ALT 17 (4-34) U/L Alkaline Phosphatase 66 (38-126) U/L Total Protein 7.0 (6.3-8.2) g/dL Albumin 4.0 (3.5-5.0) g/dL Urine Color Urine Appearance (Clear) Urine pH (5.0-8.0) Ur Specific [place] (1.001-1.035) Urine Protein (Negative) Urine Glucose (UA) (Negative) Urine Ketones (Negative) Urine Blood (Negative) Urine Nitrite (Negative) Urine Bilirubin (Negative) Urine Urobilinogen (<2.0) mg/dL Ur Leukocyte Esterase (Negative) Urine RBC (0-5) /hpf Urine WBC (0-5) /hpf Ur Squamous Epith Cells (0-4) /hpf Urine Bacteria (None) /hpf Urine Mucus (None) /hpf 05/19/20 Range/Units 18:57 WBC (3.8-10.6) k/uL RBC (3.80-5.40) m/uL Hgb (11.4-16.0) gm/dL Hct (34.0-46.0) % MCV (80.0-100.0) fL MCH (25.0-35.0) pg MCHC (31.0-37.0) g/dL RDW (11.5-15.5) % Plt Count (150-450) k/uL Neutrophils % % Lymphocytes % % Monocytes % % Eosinophils % % Basophils % % Neutrophils # (1.3-7.7) k/uL Lymphocytes # (1.0-4.8) k/uL Monocytes # (0-1.0) k/uL Eosinophils # (0-0.7) k/uL Basophils # (0-0.2) k/uL Sodium (137-145) mmol/L Potassium (3.5-5.1) mmol/L Chloride (98-107) mmol/L Carbon Dioxide (22-30) mmol/L Anion Gap mmol/L BUN (7-17) mg/dL Creatinine (0.52-1.04) mg/dL Est GFR (CKD-EPI)AfAm (>60 ml/min/1.73 sqM) Est GFR (CKD-EPI)NonAf (>60 ml/min/1.73 sqM) Glucose (74-99) mg/dL Plasma Lactic Acid Bull (0.7-2.0) mmol/L Calcium (8.4-10.2) mg/dL Total Bilirubin (0.2-1.3) mg/dL AST (14-36) U/L ALT (4-34) U/L Alkaline Phosphatase (38-126) U/L Total Protein (6.3-8.2) g/dL Albumin (3.5-5.0) g/dL Urine Color Light Yellow Urine Appearance Cloudy H (Clear) Urine pH 6.5 (5.0-8.0) Ur Specific [place] 1.008 (1.001-1.035) Urine Protein Negative (Negative) Urine Glucose (UA) Negative (Negative) Urine Ketones Negative (Negative) Urine Blood Negative (Negative) Urine Nitrite Negative (Negative) Urine Bilirubin Negative (Negative) Urine Urobilinogen <2.0 (<2.0) mg/dL Ur Leukocyte Esterase Large H (Negative) Urine RBC 2 (0-5) /hpf Urine WBC 45 H (0-5) /hpf Ur Squamous Epith Cells <1 (0-4) /hpf Urine Bacteria Rare H (None) /hpf Urine Mucus Rare H (None) /hpf Disposition Clinical Impression: Left-sided back pain, UTI (urinary tract infection), Pyelonephritis of left kidney Disposition: HOME SELF-CARE Condition: Stable Instructions (If sedation given, give patient instructions): Urinary Tract Infe ction in Women (ED) Additional Instructions: Please return to the Emergency Department if symptoms worsen or any other concerns. Take antibiotic as prescribed. May continue with Tylenol or Motrin for pain relief. Follow-up with PCP in 1-3 days. Prescriptions: Cephalexin [Keflex] 500 mg PO BID 10 Days #20 cap Hydrocodone/Acetaminophen [[place] 5-325] 1 tab PO Q6HR PRN #10 tab PRN Reason: Pain Is patient prescribed a controlled substance at d/c from ED?: No Referrals: None,Stated [REFERRING] - 1-2 days
[2020-05-19 16:46] LABS: Basophils % (A) 0 %; Eosinophils # (A) 0.1 k/uL (0-0.7); Eosinophils % (A) 2 %; HCT 42.1 % (34.0-46.0); HGB 13.4 gm/dL (11.4-16.0); Lymphocytes # (A) 1.1 k/uL (1.0-4.8); Lymphocytes % (A) 14 %; MCH 30.5 pg (25.0-35.0); MCHC 31.7 g/dL (31.0-37.0); MCV 96.2 fL (80.0-100.0); Mean Platelet Volume 7.4; Monocytes # (A) 0.4 k/uL (0-1.0); Monocytes % (A) 5 %; Neutrophils # (A) 6.2 k/uL (1.3-7.7); Neutrophils % (A) 78 %; Platelet Count 207 k/uL (150-450); RBC 4.38 m/uL (3.80-5.40); WBC 7.9 k/uL (3.8-10.6)
[2020-05-19 16:55] LABS: ALT 17 U/L (4-34); AST 38 U/L (14-36); African American GFR (CKD) >90 (>60 ml/min/1.73 sqM); Alkaline Phosphatase 66 U/L (38-126); Anion Gap 10 mmol/L; Blood Urea Nitrogen 17 mg/dL (7-17); Calcium 9.2 mg/dL (8.4-10.2); Carbon Dioxide 20 mmol/L (22-30); Chloride 103 mmol/L (98-107); Glucose 92 mg/dL (74-99); Non-African American GFR(CKD) 86 (>60 ml/min/1.73 sqM); Potassium 4.9 mmol/L (3.5-5.1); Sodium 133 mmol/L (137-145); Total Bilirubin 0.7 mg/dL (0.2-1.3)
--- NOTE | 2020-05-19 17:22 | CT ---
EXAMINATION TYPE: CT abdomen pelvis wo con DATE OF EXAM: 05/19/2020 COMPARISON: None HISTORY: Left side flank pain. CT DLP: 472.3 mGycm Automated exposure control for dose reduction was used. There is mild subsegmental atelectasis at the lung bases. There is mild gastric wall thickening. Live r shows no focal defect. Gallbladder appears normal. Bile ducts are not dilated. There is no evidence of pancreatic mass. There is no adrenal mass. There is 2 mm calculus lateral right kidney. There is irregular 3 mm calcif ication lower pole right kidney. There is some deformity of the cortex lower pole right kidney that c ould relate to scarring. There is no hydronephrosis. Ureters are not dilated. Bladder distends smooth ly. There is no inguinal hernia. There is right hip prosthesis. There is no free fluid in the pelvis. There is thoracolumbar levoscoliosis. There is multilevel spondylotic changes in the lumbar spine. T he bony pelvis appears intact. Uterus is retroverted. There is no free fluid in the pelvis. Appendix is not definitely seen. There is no sign of thickened appendix. There is no ascites or free air. There is no sign of a bowel obstruction. Abdominal aorta is atheromatous. IMPRESSION: Nonobstructing small renal calculi. Atherosclerotic vascular disease. Mild gastric wall thickening co uld relate to some hypertrophic gastritis.
[2020-05-19 19:11] LABS: Appearance,Urine Cloudy (Clear); Bacteria,Urine Rare /hpf; Bilirubin,Urine Negative (Negative); Blood,Urine Negative (Negative); Color,Urine Light Yellow; Glucose,Urine (UA) Negative (Negative); Ketones,Urine Negative (Negative); Leukocyte Esterase,Urine Large (Negative); Mucus,Urine Rare /hpf; Nitrite,Urine Negative (Negative); PH, Urine 6.5 (5.0-8.0); Protein,Urine Negative (Negative); RBC,Urine 2 /hpf (0-5); Specific Gravity,Urine 1.008 (1.001-1.035); Squamous Epithelial Cell,Urine <1 /hpf (0-4); Urobilinogen,Urine <2.0 mg/dL (<2.0); WBC,Urine 45 /hpf (0-5)
[2020-05-19] MEDS ORDERED: cefTRIAXone IN SWFI 1,000 MG/10 ML SYRINGE IVP STA (19:27)
[2020-05-21 09:31] VITALS: BP 141/80; PULSE 64; RESP 16; TEMP 98.6
== END 2020-05-19 20:02 | disposition home or self-care (01) ==
LOC: EC 14:33
DX: N39.0 Urinary tract infection, site not specified (principal); G47.30 Sleep apnea, unspecified; K21.9 Gastro-esophageal reflux disease without esophagitis; E07.9 Disorder of thyroid, unspecified; I20.9 Angina pectoris, unspecified; Z79.1 Long term (current) use of non-steroidal anti-inflammatories (NSAID); Z79.82 Long term (current) use of aspirin; Z79.890 Hormone replacement therapy; Z79.899 Other long term (current) drug therapy; Z88.6 Allergy status to analgesic agent; Z88.8 Allergy status to other drugs, medicaments and biological substances; Z99.89 Dependence on other enabling machines and devices; Z96.651 Presence of right artificial knee joint
CPT/HCPCS: 36415; 74176; 80053; 81001; 83605; 85025; 87086; 99284

== ENCOUNTER → 2020-08-03 | Outpatient (CLI) | payer MEDICARE ==
--- NOTE | 2020-08-03 17:25 | CONS ---
CONSULTATION REASON FOR CONSULTATION: Insomnia, possible obstructive sleep apnea. This is an 79-year-old female patient who is having difficulties in initiating and maintaining sleep. Obviously, there is a concern for insomnia. She is having a very hard time during the day, feeling very tired and lethargic and she has low energy level. She also has a headaches in the morning and the evening. She has excessive fatigue and sleepiness and she attributes this to an inability to have adequate number of hours of sleep. She typically goes to bed around 10 p.m., and sometimes she wakes up at 5 a.m., other times she is able to sleep at 8:00 am. At times, it takes her longer than 30 minutes to fall asleep. She wakes up comfortably in the middle of night and sometimes she is unable to generate back to sleep. It feels that she is only sleeping around 5 hours according to her. She wakes up tired and she has problems with attention, memory and concentration. She has been told that she has sleep apnea in the past and she was given CPAP therapy more than 15 years ago and she was unable to tolerate and she ended up quitting the treatment. Currently, she is not receiving any treatment. Her weight has been stable around 130. She has history of bruxism and TMJ and she is going to see Dr. Chente Guzman for a splint versus an oral appliance, depending if sleep apnea is present. She has scoliosis of her spine. She has lumbar disc disease and she has hypothyroidism and acid reflux. No sleep paralysis. No hallucinations. No cataplexy. No anxiety. No depression. Prefers to sleep on her side. Has adequate sleep hygiene measures. [place] score is at 13. PAST MEDICAL HISTORY: Hypothyroidism, acid reflux, scoliosis, lumbar disc disease, bruxism, TMJ. SURGICAL HISTORY: Includes right hip surgery, right knee surgery, bladder surgery x2. SOCIAL HISTORY: The patient is a nonsmoker. No history of alcoholism. No history of IV drugs. FAMILY HISTORY: Negative for sleep apnea. OUTPATIENT MEDICATION LIST: Includes omeprazole 20 mg p.o. daily, levothyroxine 1 tablet a day, calcium and vitamin D3 and multivitamin. REVIEW OF SYSTEMS: A 14-point review of system was done, positive findings are mentioned in history of present illness. Current [place] score of 13. BP is 130/77, pulse 82, respirations 16, temperature 98.0, saturation 98% on room air. Height is 5, 0, weight is 130, BMI 25.1, neck size 14 inches. GENERAL APPEARANCE: Calm, comfortable, in no acute distress. HEAD: Atraumatic, normocephalic. NECK: Supple, there is no JVD. No goiter or neck masses. She has an overbite with Mallampati class 4. LUNGS: Diminished otherwise clear. HEART: Heart sounds are regular rate and rhythm, normal S1, S2,. no murmurs. ABDOMEN: Soft, nontender. No organomegaly. EXTREMITIES: No edema, no cyanosis or clubbing. NEUROLOGIC: Awake, alert. There is no focal neurological deficits. PSYCHIATRIC: Negative for anxiety or depression. IMPRESSION: 1. Chronic sleepiness/exhaustion with an [place] score of 13, under investigation. 2. Symptoms suggestive of comorbid insomnia, although possibility of obstructive sleep apnea cannot be completely ruled out. The patient has been diagnosed having sleep apnea and treated in the past with limited success. My overall impression is that the patient is more comorbid insomnia rather than sleep apnea. 3. Hypothyroidism. 4. Acid reflux. 5. Bruxism with TMJ wearing a bite splint. 6. Lumbar disc disease. 7. Scoliosis. PLAN: 1. Overall sleep hygiene measures are adequate. 2. Avoid caffeinated beverages especially at nighttime. 3. Optimize sleep hygiene measures. 4. Utilize Xanax 0.5 mg to shut down her brain and try to promote sleep, especially if she builds a blood of anxiety at nighttime. 5. Performed a polysomnogram to evaluate this patient for sleep breathing disorder. This will be also useful to plan any treatment in future, especially the patient is being seen by dental services regarding her bruxism and TMJ. She may benefit from a bite splint and/or an oral appliance if she is found to have significant amount of bruxism. Will continue to follow. A prescription was given for Xanax for a total of 30 days 0.25 mg to be used only on a as needed basis for sleep promotion. I think her insomnia is essentially comorbid, although anxiety probably is adding to her difficulties of inability to fall asleep. Will continue to follow. MMODL / IJN: [id number] /
== END | disposition home or self-care (01) ==
LOC: SLEEP 13:45
PROVIDERS: ATTEND Internal Medicine Critical Care Medicine
DX: G47.33 Obstructive sleep apnea (adult) (pediatric) (principal); E03.9 Hypothyroidism, unspecified; K21.9 Gastro-esophageal reflux disease without esophagitis; G47.63 Sleep related bruxism; M41.9 Scoliosis, unspecified; M51.36 Other intervertebral disc degeneration, lumbar region
CPT/HCPCS: 99211

== ENCOUNTER → 2020-08-13 | Outpatient (CLI) | payer MEDICARE ==
--- NOTE | 2020-08-13 14:12 | BD ---
EXAMINATION TYPE: Axial Bone Density DATE OF EXAM: 08/13/2020 COMPARISON: NONE CLINICAL HISTORY: Height: 59 Weight: 128.9 FRAX RISK QUESTIONS: Alcohol (3 or more units per day): no Family History (Parent hip fracture): no Glucocorticoids (More than 3mos): no (Ex: prednisone, prednisolone, methylprednisolone, dexamethasone, and hydrocortisone). History of Fracture in Adulthood: no Secondary Osteoporosis: 1. Type 1 Diabetes: no 2. Hyperthyroidism: no 3. Menopause before 45: no 4. Malnutrition: no 5. Chronic liver disease: no Rheumatoid Arthritis: no Current Tobacco Use: no RISK FACTORS HISTORY OF: Surgery to Spine/Hip(right/left)/Wrist (right/left): right hip When: 2017 Family History of Osteoporosis: no Active: yes Diet low in dairy products/other sources of calcium: yes Postmenopausal woman: age 48 Lost more than 2 inches in height since high school: yes MEDICATIONS: Acid reflux meds, calcium, vitamins Thyroid Medications: thyroid How Lon years Osteoporosis Medications: just stopped taking Evista in June 2020 Additional History: EXAM MEASUREMENTS: Bone mineral densitometry was performed using the Si[employer] System. Bone mineral density as measured about the Lumbar spine is: ----- L1-L4(G/cm2): 0.975 T Score Values are as follows: ----- L2: -2.7 ----- L3: -1.3 ----- L4: -0.2 ----- L1-L4: -1.7 Bone mineral density has: decreased -5.4 % since study of: 02.09.2016 Bone mineral density about the L hip (g/cm2): 0.835 T Score values are as follows: -----L Neck: -1.5 -----L Total: -1.5 Bone mineral density has: decreased -0.7 % since study of: 02.09.2016 IMPRESSION: Osteopenia NOTE: T-SCORE=SD OF THE YOUNG ADULT MEAN.
== END | disposition home or self-care (01) ==
LOC: RADBDWWP 12:39
PROVIDERS: ATTEND Family Medicine
DX: M85.80 Other specified disorders of bone density and structure, unspecified site (principal); M81.0 Age-related osteoporosis without current pathological fracture
CPT/HCPCS: 77080

== ENCOUNTER → 2021-12-20 | Outpatient (CLI) | payer MEDICARE ==
[2021-12-21 12:13] LABS: Coronavirus SARS CoV-2 Not Detected (Not Detected)
== END | disposition home or self-care (01) ==
LOC: LABWHC1 13:04
PROVIDERS: ATTEND Family Medicine
DX: R05.1 Acute cough (principal)
CPT/HCPCS: U0003; C9803

== ENCOUNTER → 2022-03-14 | Outpatient (CLI) | payer MEDICARE ==
--- NOTE | 2022-03-14 14:42 | MM ---
Reason for exam: clinical finding. Last mammogram was performed 3 years and 6 months ago. History: Patient is postmenopausal. Cyst aspiration of the left breast, 1989. Excisional biopsy of the right breast, 1979. Took estrogen for 2 years. Took progesterone for 2 years. Physical Findings: A clinical breast exam by your physician is recommended on an annual basis and results should be correlated with mammographic findings. MG Diagnostic Mammo w CAD SHOBHA Bilateral CC and MLO view(s) were taken. XCCL view(s) were taken of the left breast. Prior study comparison: September 23, 2018, bilateral MG 3d screening mammo w/cad. February 09, 2016, bilateral MG screening mammo w CAD. The breast tissue is heterogeneously dense. This may lower the sensitivity of mammography. There are benign appearing round, vascular calcifications bilaterally. There is no discrete abnormality. Results were given to the patient verbally at the time of the exam. ASSESSMENT: Incomplete: need additional imaging evaluation, BI-RAD 0 RECOMMENDATION: Ultrasound of the left breast. (targeted) Manage on a clinical basis with regard to left palpable and focal pain.
--- NOTE | 2022-03-14 14:43 | USB ---
Reason for exam: additional evaluation requested from abnormal screening. History: Patient is postmenopausal. Cyst aspiration of the left breast, 1989. Excisional biopsy of the right breast, 1979. Took estrogen for 2 years. Took progesterone for 2 years. Physical Findings: A clinical breast exam by your physician is recommended on an annual basis and results should be correlated with mammographic findings. US Breast LT Left complete breast ultrasound includes all four quadrants, the retroareolar region and axilla. Finding demonstrates no cystic or solid lesion seen. Results were given to the patient verbally at the time of the exam. ASSESSMENT: Negative, BI-RAD 1 RECOMMENDATION: Routine screening mammogram of both breasts in 1 year. Manage patient on a clinical basis.
== END | disposition home or self-care (01) ==
LOC: RADMAMWWP 13:30
PROVIDERS: ATTEND Family Medicine
DX: N64.4 Mastodynia (principal); R92.8 Other abnormal and inconclusive findings on diagnostic imaging of breast
CPT/HCPCS: 77066

== ENCOUNTER → 2022-05-03 | Outpatient (CLI) | payer MEDICARE ==
--- NOTE | 2022-05-04 04:12 | MR ---
EXAMINATION TYPE: MR beth/livier wo con DATE OF EXAM: 05/03/2022 COMPARISON: 06/08/2020 and 01/27/2020 HISTORY: Mid back pain, low back pain that radiates down left side. Multiplanar multiecho imaging of the thoracic and lumbar spine with no contrast. Thoracic spine. There is thoracic kyphotic and dextroscoliosis deformity. No significant compression deformity. There is degenerative disc space narrowing throughout the thoracic spine. The thoracic spinal cord shows n ormal signal pattern. No edema. No thoracic spinal stenosis. No evidence of thoracic paraspinal mass. IMPRESSION: Kyphotic and scoliotic deformity. Dextroscoliosis slightly worse than old exam. No compression fractu re. No thoracic spinal stenosis. Lumbar spine. There is thoracolumbar levoscoliosis. There is degenerative disc space narrowing throughout the lumba r spine and more severe from L2 to L5. There is posterior endplate spurring and disc herniations exte nding from L1 to L5. There is hypertrophic facet arthropathy with moderately severe spinal stenosis a t L3-4. There is some mild lateral recess stenosis at L2-3 and L4-5. There is no lumbar paraspinal ma ss. Posterior elements are intact. Sacroiliac joints are intact. No focal bone destruction. IMPRESSION: Multilevel moderate spondylotic changes. Moderate spinal stenosis at L3-4 which appears not significa ntly different than old exam. No fracture.
== END | disposition home or self-care (01) ==
LOC: RADMRIMAIN 14:28
PROVIDERS: ATTEND Orthopaedic Surgery Orthopaedic Surgery of the Spine
DX: M47.816 Spondylosis without myelopathy or radiculopathy, lumbar region (principal); M41.86 Other forms of scoliosis, lumbar region; M47.814 Spondylosis without myelopathy or radiculopathy, thoracic region; M41.55 Other secondary scoliosis, thoracolumbar region; M62.830 Muscle spasm of back
CPT/HCPCS: 72146; 72148

== ENCOUNTER → 2022-05-08 | Outpatient (CLI) | payer MEDICARE ==
[2022-05-08 11:25] VITALS: BP 174/85; PULSE 73; RESP 18; TEMP 98.2
--- NOTE | 2022-05-08 11:29 | P.PAINPG ---
PQRS Measure Charge Sheet Comment: HISTORY OF PRESENT ILLNESS: 81 yr old female with son at side as a referral from Dr. Sawyer for severe and chronic thoracic pain 4 months secondary to DDD for evaluation. Patient states her pain level currently is 0 out of 10 in intensity but escalates as high as 9 out of 10 in intensity with standing/walking for periods of 10 minutes or more. It radiates towards the L flank under the ribs. Pain is relieved with medications, chiropractic treatments monthly, repositioning and rest. PMH: Angina, GERD, Sleep Apnea/CPAP/BIPAP, Hypothyroidism, Vitamin D Deficiency PSH: Thyroidectomy, R Knee Arthroscopy x 2, R Knee Replacement, Bladder Suspension, R Hip Replacement SH: Negative x 3 FH: Mother- No Reported History. Father- No Reported History All: See list Meds: See list REVIEW OF ORGAN SYSTEMS: CONSTITUTIONAL: No fevers or chills. No recent weight loss. NEUROLOGICAL: + numbness and tingling along the distal extremities. No seizure disorders or headaches. MUSCULOSKELETAL: + pain PSYCHIATRIC: Denies current depression or suicidal thoughts. Physical Examinations : Constitutional : Cooperative , not in acute distress . Neurologic : Cranial nerve II to XII intact. No focal neurological deficits. Psychiatric : alert & oriented x 3. Matching mood & appropriate affect. Judgment & insight intact. Musculoskeletal : Cervical Spine Motor strength in the deltoid and biceps: Normal right side. Normal Left side Motor strength biceps and the wrist extensors: Normal right side . Normal left side Motor strength in the triceps muscle: Normal right side. Normal left side Deep tendon reflexes: Normal at the biceps. Normal at Brachioradialis. Normal at triceps Vertebral body tenderness to deep palpation over Cervical facet loading test: positive bilaterally Spurling test: positive bilaterally Neck distraction test: positive bilaterally Demarco sign: positive bilaterally Thoracic spine T10-T11 Vertebral tenderness to palpation with L paraspinal muscle TTP Lumbar spine Motor strength lower extremities ,thigh and legs 5/5 Right side , 5/5 Left side Deep tendon reflexes : Normal Knee Jerk. Normal Ankle Jerk Vertebral body tenderness over Lumbar facet Loading Test: positive Right / positive Left Range of motion of the lumbar spine Flexion 30 degrees, extension 10 degrees Straight Leg Raise test: Left/ Right positive at degree Db test: positive right / positive left. Severe tenderness over the Sacroiliac joint on the Right / Left sides Gaenslen test: positive bilaterally Seated flexion test: positive bilaterally. Sacral spine : Severe tenderness over the Sacroiliac joint: right side / left side Range of motion: Flexion of the lumbar spine <60 degrees Range of motion: Extension of the lumbar spine <20 degrees Gaenslen's Test positive Coleman's Test positive Db test: positive right side / left side Thigh Thrust Test Sacral Thrust Test Imaging: MRI of the thoracic and lumbar spine reviewed Assessment/ Plan : Thoracic DDD Recommendation of L paramedian T10-T11 TESI. May need a series of injections, up to 3 within a 6 mo period, for optimal pain relief. Risks, benefits of procedure discussed and patient verbalized understanding. Denies aspirin or anti- coagulant use or medical history of diabetes. Protocol for discontinuation/ continuation of medications kylie procedure discussed. All questions answered. I have spent greater than 30 minutes on patient care today. Dr Stacy was available by phone for the evaluation of this patient. The time was used to review the medical records including relevant urine studies and Prescription history (MAPs), review of the available imaging, evaluation and examination of the patient, coordination of care with the medical staff and if applicable referring physicians, as well as creation of the medical record - Pain Location Left Flank Non-Pharmacological Interventions: Chiropractic Treatment Pharmacological Interventions: PRN Medication PQRS Narrative: Smoking Status Never smoker Home Medications: Ambulatory Orders Levothyroxine Sodium [Synthroid] 88 mcg PO SUMOWETHFRSA 05/29/14 Omeprazole [PriLOSEC] 20 mg PO Q48H 05/29/14 Raloxifene [Evista] 60 mg PO DAILY 05/29/14 Calcium Carbonate/Vitamin D3 [Calcium 600-Vit D3 400 Tablet] 1 tab PO DAILY 09/20/15 Levothyroxine Sodium [Synthroid] 176 mcg PO TU 09/20/15 Multivitamins, Thera [Multivitamin (formulary)] 1 tab PO DAILY 09/20/15 Acetaminophen Tab [Tylenol Tab] 1,000 mg PO TID 05/18/17 Aspirin [Adult Low Dose Aspirin EC] 81 mg PO DAILY 05/18/17 Celecoxib [CeleBREX] 100 mg PO BID 05/18/17 Propylene Glycol/Peg 400/Pf [Systane 0.3-0.4% Eye Drops] 1 drop BOTH EYES BID 05/18/17 Psyllium Husk (with Sugar) [Metamucil Powder] 5 gm PO HS 05/18/17 Aspirin 325 mg PO BID #60 tab 05/25/17 HYDROcodone/APAP 5-325MG [[place] 5-325] 1 - 2 tab PO Q4-6H PRN #90 tab 05/25/17 Sennosides-Docusate Sodium [Senokot-S] 1 tab PO BID #60 tablet 05/25/17 Cephalexin [Keflex] 500 mg PO BID 10 Days #20 cap 05/19/20 Hydrocodone/Acetaminophen [[place] 5-325] 1 tab PO Q6HR PRN #10 tab 05/19/20 Controlled Substance Measures - Controlled Substance Measures Is patient prescribed a controlled substance at discharge?: No
== END ==
LOC: PNWHC3 10:44
PROVIDERS: ATTEND Specialist
DX: M51.36 Other intervertebral disc degeneration, lumbar region (principal); M51.34 Other intervertebral disc degeneration, thoracic region; E03.9 Hypothyroidism, unspecified; Z88.5 Allergy status to narcotic agent; Z88.8 Allergy status to other drugs, medicaments and biological substances
CPT/HCPCS: 99211

== ENCOUNTER 2022-10-23 11:58 | Inpatient (IN) | payer MEDICARE ==
[2022-10-23] MEDS ORDERED: HYDROmorphone 1 MG/ML 1 ML SYRINGE IVP STA (12:09)
--- NOTE | 2022-10-23 12:27 | ED ---
General Adult HPI - General Chief complaint: Fall Stated complaint: fall - rt knee pain Time Seen by Provider: 10/23/22 12:00 Source: patient, EMS, RN notes reviewed Mode of arrival: EMS Limitations: no limitations - History of Present Illness Initial comments: Patient is a pleasant 81-year-old female presenting to the emergency department with concerns with right leg pain. Patient was at the gym. Patient fell and struck her right lateral leg as she was falling. Patient complains of severe discomfort to this area. Patient states it does extend towards the knee. Discomfort greatly increases with movement. Patient did not attempt ambulation. No history of similar symptoms previously or trauma. Patient did receive pain medication in route however is receptive to more pain medication. No head injury or loss of consciousness. No neck or back pain. - Related Data Home Medications Medication Instructions Recorded Confirmed Omeprazole [PriLOSEC] 20 mg PO DAILY 05/29/14 10/23/22 Levothyroxine Sodium [Synthroid] 112 mcg PO DAILY 10/23/22 10/23/22 Allergies Allergy/AdvReac Type Severity Reaction Status Date / Time promethazine Allergy Nausea & Verified 05/08/22 11:25 Vomiting & Diarrhea tramadol [From Ultram] AdvReac severe Verified 05/08/22 11:25 headache and n/v Review of Systems ROS Statement: Those systems with pertinent positive or pertinent negative responses have been documented in the HPI. ROS Other: All systems not noted in ROS Statement are negative. Constitutional: Denies: fever Eyes: Denies: eye pain ENT: Denies: ear pain Respiratory: Denies: cough Cardiovascular: Denies: chest pain Endocrine: Denies: fatigue Gastrointestinal: Denies: abdominal pain Genitourinary: Denies: dysuria Musculoskeletal: Reports: as per HPI Skin: Denies: rash Neurological: Denies: headache, weakness Past Medical History Past Medical History: Chest Pain / Angina, GERD/Reflux, Sleep Apnea/CPAP/BIPAP, Thyroid Disorder Additional Past Medical History / Comment(s): "low hemoglobin" ,sciatica, does not use cpap,urinary leakage History of Any Multi-Drug Resistant Organisms: None Reported Past Surgical History: Joint Replacement, Orthopedic Surgery Additional Past Surgical History / Comment(s): thyroid surgery, rt knee arthroscopic x 2 and replacement,bladder susp,bladder procedure,pain clinic proc Past Anesthesia/Blood Transfusion Reactions: Previous Problems w/ Anesthesia, Postoperative Nausea & Vomiting (PONV) Additional Past Anesthesia/Blood Transfusion Reaction / Comment(s): took long time to come out Past Psychological History: No Psychological Hx Reported Smoking Status: Never smoker Past Alcohol Use History: None Reported Past Drug Use History: None Reported - Past Family History Father History Unknown: Yes Family Medical History: No Reported History Mother History Unknown: Yes Family Medical History: No Reported History General Exam Limitations: no limitations General appearance: alert Head exam: Present: normocephalic Eye exam: Present: normal appearance Neck exam: Present: normal inspection. Absent: tenderness Respiratory exam: Present: normal lung sounds bilaterally Cardiovascular Exam: Present: regular rate, normal rhythm Expanded Peripheral pulses: 2+: Posterior Tibialis (R), Dorsalis Pedis (R) GI/Abdominal exam: Present: soft. Absent: tenderness Extremities exam: Present: tenderness (Moderate swelling and tenderness distal femur and knee region. Range of motion limited secondary to patient discomfort. Distally the extremity is neurovascularly intact.) Neurological exam: Present: alert. Absent: motor sensory deficit Psychiatric exam: Present: normal affect, normal mood Skin exam: Present: normal color Course Vital Signs 10/23/22 11:59 Pulse Rate 82 Respiratory 20 Rate Blood Pressure 140/75 O2 Sat by Pulse 99 Oximetry Medical Decision Making - Medical Decision Making Patient evaluated. Patient and family updated. Case was discussed with Dr. Camara, who will admit. Disposition Clinical Impression: Femur fracture, right, Fall Disposition: [facility] Condition: Serious Is patient prescribed a controlled substance at d/c from ED?: No Referrals: Nickie De Anda III, MD [Primary Care Provider] - 1-2 days Time of Disposition: 14:18
--- NOTE | 2022-10-23 13:55 | XR ---
EXAMINATION TYPE: XR knee limited RT DATE OF EXAM: 10/23/2022 COMPARISON: NONE HISTORY: Pain TECHNIQUE: Two views are submitted. FINDINGS: There is an oblique fracture of the distal femur with significant displacements. There is a intraosse ous lesion which may represent a chondroid lesion or bone infarct of the distal femur. Postsurgical c hange of the knee. Fracture line appears proximal to the prostheses. IMPRESSION: 1. Displaced oblique fracture distal femur 2. Intraosseous lesion distal femur. Differential diagnosis includes chondroid lesion and bone infarc t.
--- NOTE | 2022-10-23 13:56 | XR ---
EXAMINATION TYPE: XR femur RT DATE OF EXAM: 10/23/2022 COMPARISON: NONE HISTORY: Pain TECHNIQUE: Oral views submitted FINDINGS: There is an oblique fracture of the distal femur with significant displacements. There is a intraosse ous lesion which may represent a chondroid lesion or bone infarct of the distal femur. Postsurgical c hange of the knee. Fracture line appears proximal to the prostheses. A right hip prostheses noted. De generative changes lower lumbar spine. Diffuse osteopenia. IMPRESSION: 1. Displaced oblique fracture of the distal femur. 2. Postsurgical changes. 3. Suspect chondroid lesion versus bone infarct distal femur. Correlate with bone scan to assess intr aosseous lesion.
[2022-10-23] MEDS ORDERED: HYDROmorphone 0.5 MG/0.5 ML SYRINGE IVP STA (14:18)
[2022-10-23] MEDS ORDERED: ONDANSETRON 4 MG/2 ML VIAL IVP STA (14:18)
[2022-10-23] MEDS ORDERED: NALOXONE 0.4 MG/ML 1 ML VIAL IV PRN (14:19)
[2022-10-23] MEDS ORDERED: HYDROmorphone 0.5 MG/0.5 ML SYRINGE IVP PRN (14:19)
[2022-10-23] MEDS ORDERED: ACETAMINOPHEN TAB 325 MG TAB PO PRN (14:19)
[2022-10-23] MEDS: PANTOPRAZOLE 40 MG/10 ML VIAL IV SCH (14:29)
[2022-10-23] MEDS: SODIUM CHLORIDE 0.9% 1,000 ML IV SCH (14:29)
[2022-10-23 15:02] LABS: Basophils % (A) 0 %; Eosinophils # (A) 0.1 k/uL (0-0.7); Eosinophils % (A) 1 %; HCT 36.3 % (34.0-46.0); HGB 12.5 gm/dL (11.4-16.0); Lymphocytes # (A) 0.7 k/uL (1.0-4.8); Lymphocytes % (A) 5 %; MCH 31.7 pg (25.0-35.0); MCHC 34.3 g/dL (31.0-37.0); MCV 92.3 fL (80.0-100.0); Mean Platelet Volume 7.8; Monocytes # (A) 0.3 k/uL (0-1.0); Monocytes % (A) 3 %; Neutrophils # (A) 11.3 k/uL (1.3-7.7); Neutrophils % (A) 91 %; Platelet Count 193 k/uL (150-450); RBC 3.93 m/uL (3.80-5.40); RDW 12.6 % (11.5-15.5); WBC 12.5 k/uL (3.8-10.6)
[2022-10-23 15:08] LABS: ALT 18 U/L (4-34); AST 29 U/L (14-36); African American GFR (CKD) >90 (>60 ml/min/1.73 sqM); Albumin 3.6 g/dL (3.5-5.0); Alkaline Phosphatase 79 U/L (38-126); Anion Gap 7 mmol/L; Blood Urea Nitrogen 22 mg/dL (7-17); Calcium 8.4 mg/dL (8.4-10.2); Carbon Dioxide 23 mmol/L (22-30); Chloride 107 mmol/L (98-107); Glucose 155 mg/dL (74-99); Non-African American GFR(CKD) 89 (>60 ml/min/1.73 sqM); Potassium 3.4 mmol/L (3.5-5.1); Sodium 137 mmol/L (137-145); Total Bilirubin 0.4 mg/dL (0.2-1.3); Total Protein 6.1 g/dL (6.3-8.2)
[2022-10-23 15:44] LABS: INR 1.1 (<1.2); Partial Thromboplastin Time 21.5 sec (22.0-30.0); Prothrombin Time 11.3 sec (9.0-12.0)
[2022-10-23] MEDS: HYDROmorphone 1 MG/ML 1 ML SYRINGE IVP PRN ×2 (18:17→23:27)
[2022-10-23] MEDS ORDERED: HYDROcodone/APAP 5-325MG 1 EACH TAB PO PRN (18:44)
[2022-10-23] MEDS: ONDANSETRON 4 MG/2 ML VIAL IVP PRN (21:52)
[2022-10-24] MEDS: HYDROmorphone 1 MG/ML 1 ML SYRINGE IVP PRN ×3 (05:07→14:52)
[2022-10-24] MEDS: SODIUM CHLORIDE 0.9% 1,000 ML IV SCH ×2 (05:13→14:55)
[2022-10-24] MEDS: LEVOTHYROXINE 112 MCG TAB PO SCH (06:34)
[2022-10-24] MEDS ORDERED: HYDROmorphone 0.5 MG/0.5 ML SYRINGE IVP ONE ×3 (07:50→20:08)
[2022-10-24] MEDS: PANTOPRAZOLE 40 MG/10 ML VIAL IV SCH (08:14)
--- NOTE | 2022-10-24 08:47 | P.HPOR ---
History of Present Illness H&P Date: 10/23/22 This patient is an 81-year-old female who is otherwise healthy that presented to [facility] emergency department earlier today with complaints of right lower extremity pain following a fall at the gym. The patient states she twisted and felt immediate pain in the right lower leg. She was unable to bear weight, EMS transported the patient to [facility] emergency department. X-rays in the emergency department revealed a spiral distal femur fracture. The patient does have a history of a right total hip replacement by Dr. Mcallister in 2017. She also has a history of a right total knee replacement by Dr. Candelaria. Patient was admitted under the care of Dr. Camara with a consultation placed to internal medicine for preoperative medical clearance. Patient is examined bedside in the emergency department this evening with Dr. Camara. Family member is bedside. She is complaining of isolated right lower extremity pain. She denies numbness or tingling right lower extremity. She has no additional complaints at this time. Vital signs stable. Past Medical History Past Medical History: Chest Pain / Angina, GERD/Reflux, Sleep Apnea/CPAP/BIPAP, Thyroid Disorder Additional Past Medical History / Comment(s): "low hemoglobin" ,sciatica, does not use cpap,urinary leakage History of Any Multi-Drug Resistant Organisms: None Reported Past Surgical History: Joint Replacement, Orthopedic Surgery Additional Past Surgical History / Comment(s): thyroid surgery, rt knee arthroscopic x 2 and replacement,bladder susp,bladder procedure,pain clinic proc Past Anesthesia/Blood Transfusion Reactions: Previous Problems w/ Anesthesia, Postoperative Nausea & Vomiting (PONV) Additional Past Anesthesia/Blood Transfusion Reaction / Comment(s): took long time to come out Past Psychological History: No Psychological Hx Reported Smoking Status: Never smoker Past Alcohol Use History: None Reported Past Drug Use History: None Reported - Past Family History Father History Unknown: Yes Family Medical History: No Reported History Mother History Unknown: Yes Family Medical History: No Reported History Medications and Allergies Home Medications Medication Instructions Recorded Confirmed Type Omeprazole [PriLOSEC] 20 mg PO DAILY 05/29/14 10/23/22 History Levothyroxine Sodium [Synthroid] 112 mcg PO DAILY 10/23/22 10/23/22 History Allergies Allergy/AdvReac Type Severity Reaction Status Date / Time promethazine Allergy Nausea & Verified 05/08/22 11:25 Vomiting & Diarrhea tramadol [From Ultram] AdvReac severe Verified 05/08/22 11:25 headache and n/v Physical Examination On examination, patient is sitting up on the gurney in no apparent distress. She is alert and oriented 3. Her head appears normocephalic and atraumatic. Her breathing appears nonlabored.On inspection of the bilateral upper extremities, no obvious deformities or signs of trauma. On inspection of her left lower extremity, no obvious deformities or signs of trauma. On inspection of the right lower extremity, extremity is immobilized in a knee immobilizer. The right foot is warm and well perfused, dorsalis pedis pulse easily palpable. Motor and sensory function is intact RLE. Results Right femur x-ray 10/23/22: Displaced spiral interprosthetic femoral shaft fracture. Stable prior right total hip arthroplasty and right total knee arthroplasty. - Labs Labs: Abnormal Lab Results - Last 24 Hours (Table) 10/23/22 10/23/22 10/23/22 Range/Units 14:56 14:56 14:56 WBC 12.5 H (3.8-10.6) k/uL Neutrophils # 11.3 H (1.3-7.7) k/uL Lymphocytes # 0.7 L (1.0-4.8) k/uL APTT 21.5 L (22.0-30.0) sec Potassium 3.4 L (3.5-5.1) mmol/L BUN 22 H (7-17) mg/dL Glucose 155 H (74-99) mg/dL Total Protein 6.1 L (6.3-8.2) g/dL H & H 10/23/22 Range/Units 14:56 Hgb 12.5 (11.4-16.0) gm/dL Hct 36.3 (34.0-46.0) % Coagulation 10/23/22 Range/Units 14:56 INR 1.1 (<1.2) Result Diagrams: 10/23/22 14:56 10/23/22 14:56 Assessment and Plan Assessment: Right spiral interprosthetic femoral shaft fracture Prior right total hip arthroplasty 2017 Prior right total knee arthroplasty Plan: - Clinical and imaging findings discussed with patient and her daughter. Patient was also examined by Dr. Camara. Recommend ORIF right interprosthetic femur fracture tomorrow, pending medical clearance and consent. Patient is agreeable to this plan. - She will remain in knee immobilizer until Scott's traction is able to be applied. Pain management as needed. - Internal medicine has been consulted for pre-op medical evaluation. - Bed rest. Strict nonweight bearing RLE. - NPO diet at midnight. Will plan for OR tomorrow afternoon.
[2022-10-24] MEDS: ONDANSETRON 4 MG/2 ML VIAL IVP PRN ×2 (09:06→23:13)
[2022-10-24 10:13] LABS: Glucose,Whole Blood 121 mg/dL (70-110)
--- NOTE | 2022-10-24 13:26 | P.CONS ---
History of Present Illness - Reason for Consult Consult date: 10/24/22 Medical Clearance - History of Present Illness This is an 81-year-old female with medical history significant for thyroid di sorder s/p partial thyroidectomy secondary to nodules, gastroesophageal reflux disease, sleep apnea does not wear CPAP, orthopedic surgery history of right hip replacement in 2017 and also right total knee replacement. Chart review shows patient had a positive stress echo back in 2014 and underwent cardiac catheterization showing normal coronary arteries with normal LV size and systolic function. Patient presents to the hospital after sustaining a fall with trauma to the right lateral leg. Pt states she has followed up with cardiology a few months ago and will follow up in 1 year time. Patient was at the gym when the fall happened. Denies head injury, no loss of consciousness. States she was walking when she went down. She does present with significant pain that extends towards the knee with increased pain with movement. Right knee xray showing displaced oblique fracture of the distal femur, intraosseous lesion distal femur could be chondroid lesion vs. bone infarct. Follow up right femur xray showing similar changes. Labs on admission show a white count of 12.5 most likely reactive to trauma, potassium 3.4. Blood glucose elevated at 155. Patient is afebrile, heart rate 80s, blood pressure 145/83, 92% room air. EKG reviewed showing normal sinus rhythm with no ST or T wave abnormalities. She is receiving pain management with IV dilaudid, norco and being hydrated. Patient is cleared medically to undergo surgical repair of right femur fracture. She is considered low operative risk at this time. REVIEW OF SYSTEMS: CONSTITUTIONAL: No fever, no malaise, no fatigue. HEENT: No recent visual problems or hearing problems. Denied any sore throat. CARDIOVASCULAR: No chest pain, orthopnea, PND, no palpitations, no syncope. PULMONARY: No shortness of breath, no cough, no hemoptysis. GASTROINTESTINAL: No diarrhea, no nausea, no vomiting, no abdominal pain. NEUROLOGICAL: No headaches, no weakness, no numbness. HEMATOLOGICAL: Denies any bleeding or petechiae. GENITOURINARY: Denies any burning micturition, frequency, or urgency. MUSCULOSKELETAL/RHEUMATOLOGICAL: Reports right knee pain ENDOCRINE: Denies any polyuria or polydipsia. The rest of the 14-point review of systems is negative. PHYSICAL EXAMINATION: GENERAL: The patient is alert and oriented x3, not in any acute distress. Well developed, well nourished. HEENT: Pupils are round and equally reacting to light. EOMI. No scleral icterus. No conjunctival pallor. Normocephalic, atraumatic. No pharyngeal erythema. No thyromegaly. CARDIOVASCULAR: S1 and S2 present. No murmurs, rubs, or gallops. PULMONARY: Chest is clear to auscultation, no wheezing or crackles. ABDOMEN: Soft, nontender, nondistended, normoactive bowel sounds. No palpable organomegaly. MUSCULOSKELETAL: No joint swelling or deformity. EXTREMITIES: No cyanosis, clubbing, or pedal edema. NEUROLOGICAL: Gross neurological examination did not reveal any focal deficits. SKIN: No rashes. Assessment and plan Assessment Traumatic injury and fall Right oblique fracture of distal femur Leukocytosis reactive Hypokalemia Hyperglycemia History gastroesophageal reflux disease History thyroid disorder History sleep apnea does not use cpap GI prophylaxis DVT prophylaxis as per primary Full Code Plan Continue current home medications Follow up potassium level Monitor blood pressure Chart and Labs reviewed EKG completed and reviewed Patient is cleared medically for surgery she is considered low operative risk at this time. The impression and plan of care has been dictated by Grace Encarnacion Nurse Practitioner as directed. Dr. Jaspreet MD I have performed a history and physical examination and medical decision making of this patient, discussed the same with the dictator, and agree with the dictators assessment and plan as written, documented as a scribe. Based on total visit time, I have performed more than 50% of this visit. Past Medical History Past Medical History: Chest Pain / Angina, GERD/Reflux, Sleep Apnea/CPAP/BIPAP, Thyroid Disorder Additional Past Medical History / Comment(s): "low hemoglobin" ,sciatica, does not use cpap,urinary leakage History of Any Multi-Drug Resistant Organisms: None Reported Past Surgical History: Joint Replacement, Orthopedic Surgery Additional Past Surgical History / Comment(s): thyroid surgery, rt knee arthroscopic x 2 and replacement,bladder susp,bladder procedure,pain clinic proc Past Anesthesia/Blood Transfusion Reactions: Previous Problems w/ Anesthesia, Postoperative Nausea & Vomiting (PONV) Additional Past Anesthesia/Blood Transfusion Reaction / Comm: took long time to come out Past Psychological History: No Psychological Hx Reported Smoking Status: Never smoker Past Alcohol Use History: None Reported Past Drug Use History: None Reported - Past Family History Father History Unknown: Yes Family Medical History: No Reported History Mother History Unknown: Yes Family Medical History: No Reported History Additional Family Medical History / Comment(s): "kidney problems" Medications and Allergies Home Medications Medication Instructions Recorded Confirmed Type Omeprazole [PriLOSEC] 20 mg PO DAILY 05/29/14 10/23/22 History Levothyroxine Sodium [Synthroid] 112 mcg PO DAILY 10/23/22 10/23/22 History Allergies Allergy/AdvReac Type Severity Reaction Status Date / Time promethazine Allergy Nausea & Verified 05/08/22 11:25 Vomiting & Diarrhea tramadol [From Ultram] AdvReac severe Verified 05/08/22 11:25 headache and n/v Physical Exam Vitals: Vital Signs Temp Pulse Pulse Resp BP BP Pulse Ox 10/24/22 07:54 97.2 F L 75 18 145/83 92 L 10/24/22 02:00 98.2 F 90 17 139/78 98 10/23/22 20:00 83 16 10/23/22 19:39 98.2 F 83 16 168/91 97 10/23/22 17:36 80 16 145/80 97 10/23/22 11:59 82 20 140/75 99 Intake and Output 10/23/22 10/24/22 10/24/22 22:59 06:59 14:59 Other: Voiding Method External Catheter # Voids 1 Weight 58.967 kg Results CBC & Chem 7: 10/23/22 14:56 10/24/22 11:47 Labs: Abnormal Lab Results - Last 24 Hours (Table) 10/23/22 10/23/22 10/23/22 Range/Units 14:56 14:56 14:56 WBC 12.5 H (3.8-10.6) k/uL Neutrophils # 11.3 H (1.3-7.7) k/uL Lymphocytes # 0.7 L (1.0-4.8) k/uL APTT 21.5 L (22.0-30.0) sec Potassium 3.4 L (3.5-5.1) mmol/L BUN 22 H (7-17) mg/dL Glucose 155 H (74-99) mg/dL Total Protein 6.1 L (6.3-8.2) g/dL Assessment and Plan Time with Patient: Greater than 30
[2022-10-24] MEDS ORDERED: TRANEXAMIC ACID 1,000 MG in SODIUM CHLORIDE 0.9% 100 ML IVPB ONE ×4 (15:45)
[2022-10-24] MEDS ORDERED: IV FLUID CONTINUATION 900 ML IV ONE (16:12)
[2022-10-24] MEDS ORDERED: DEXAMETHASONE SOD PHOSPHATE 4 MG/ML 1 ML VIAL IV ONE (16:25)
[2022-10-24] MEDS ORDERED: ONDANSETRON 4 MG/2 ML VIAL IVP ONE (16:25)
[2022-10-24] MEDS ORDERED: LIDOCAINE 2% INJ 20 MG/ML (2 ML VIAL) ONE (16:51)
[2022-10-24] MEDS ORDERED: fentaNYL (PF) 50 MCG/ML 2 ML AMP ONE (16:51)
[2022-10-24] MEDS ORDERED: NEOSTIGMINE 1 MG/ML 10 ML VIAL ONE (16:51)
[2022-10-24] MEDS ORDERED: TRANEXAMIC ACID IN NACL,ISO-OS 1,000 MG/100 ML BAG ONE (16:51)
[2022-10-24] MEDS ORDERED: PROPOFOL 10 MG/ML 20 ML VIAL IV ONE (16:51)
[2022-10-24] MEDS ORDERED: GLYCOPYRROLATE 0.2 MG/ML 2 ML VIAL ONE (16:51)
[2022-10-24] MEDS ORDERED: ROCURONIUM 10 MG/ML (5 ML VIAL) IV ONE (16:51)
[2022-10-24] MEDS ORDERED: SUCCINYLCHOLINE CHLORIDE 200 MG/10 ML VIAL IV ONE (16:51)
[2022-10-24] MEDS ORDERED: LACTATED RINGERS 1,000 ML IV ONE (17:56)
--- NOTE | 2022-10-24 19:32 | FL ---
Intraoperative/procedural fluoroscopic services were provided. Total fluoroscopy time is 1.17 minutes with a total of 11 submitted images to PACS. Please see the operative/procedural note for further de tails.
[2022-10-24] MEDS ORDERED: hydrOXYzine pamoate 25 MG CAP PO PRN (19:48)
[2022-10-24] MEDS ORDERED: ONDANSETRON 4 MG/2 ML VIAL IVP PRN (19:48)
[2022-10-24] MEDS ORDERED: HYDROmorphone 0.5 MG/0.5 ML SYRINGE IVP PRN ×3 (19:48)
[2022-10-24] MEDS ORDERED: HYDROcodone/APAP 5-325MG 1 EACH TAB PO PRN (19:48)
--- NOTE | 2022-10-24 20:04 | P.OP ---
Date of Procedure: 10/24/22 Preoperative Diagnosis: 1. Right inter-prosthetic femoral shaft fracture Postoperative Diagnosis: Same Procedure(s) Performed: Open reduction and internal fixation of right inter-prosthetic femoral shaft fracture Anesthesia: TRINIDAD Surgeon: Roman Camara Liner Machine Operator #1: Syeda Camejo Estimated Blood Loss (ml): 100 IV fluids (ml): 1,200 Condition: stable Disposition: PACU Indications for Procedure: The patient is very pleasant previously healthy 81-year-old female who was previously had a right total hip replacement by Dr. Gamal Mcallister and a right total knee replacement by Dr. Troy Candelaria. She was doing well recently with no pain in her hip, knee, or thigh. She was at the [facility] working out when she twisted and had immediate pain in her right thigh. She was unable to ambulate. She was brought to the emergency department where x-rays showed an inter- prosthetic femoral shaft fracture. She was admitted under my care. I met with the patient and her family to discuss treatment options. I recommended open reduction and internal fixation. We discussed potential risks and application of surgery at length including but certainly not limited to risks from anesthesia, damage to blood vessels or nerves, nonunion, malunion, refracture, symptomatically hardware, problems with her hip and/or knee replacement, delayed wound healing, chronic pain, DVT, PE, other medical complications, and inability to regain preinjury level of function, and possibly loss of life or limb. The patient voiced her understanding of these potential complications also acknowledging other less common complications. She provided both her verbal and written consent to go forward with surgery. She was cleared by internal medicine for surgery. Description of Procedure: Patient was identified and prepped holding and the correct right femur was marked with my initials. I reviewed the consent form with the patient and her family. All their questions were answered. She was then brought back to the operating room by anesthesia. She was given a general anesthetic while on the gurney. She was then carefully transferred over to the operating room table. Preoperative antibiotics and tranexamic acid were also administered. The patient was positioned on the OR table with a bump under her right buttock internally rotating the leg and a ramp under the leg to facilitate imaging. The left leg was secured to the OR table with foam tape. A nonsterile drapes were applied. A surgical scrub with a chlorhexidine scrub brush was performed. The right leg was then prepped and draped in standard sterile fashion. Prior to starting surgery timeout was performed identifying the correct patient operative extremity procedure. I began by making a straight lateral incision over the thigh. Incision began at the knee and ended at the stem of her hip replacement. Skin incision made a scalpel and dissection was carried through the subcutaneous tissue with electrocautery. The IT band and fascia was identified and incised long itudinally in line with the skin incision. I then elevated the vastus lateralis off the intermuscular septum taking care to control perforating vessels with bipolar cautery. The femoral shaft distally had perforated through and torn through fibers of the vastus lateralis. The fracture site was identified and early callus and hematoma was gently debrided. Using a combination of longitudinal traction and direct manipulation of the fracture fragments I was able to kilpatrick the proximal shaft fragment into the distal shaft nicely. The fracture was held reduced and reduction was verified using biplanar fluoroscopic images. I then placed 2 cables around the fracture nicely compressing and holding the fracture reduced. A precontoured femoral locking plate was then placed spanning from the knee to the tip of the stem and its position was verified using biplanar fluoroscopy. I then placed nonlocking screws proximal and distal to the fracture bringing the plate down nicely to the bone. I then placed locking screws distally and proximally. A cable was also placed around the plate proximal to the hip stem. Final fluoroscopic images were taken showing anatomic reduction of the fracture fragment in appropriate position of the plate, screws and cables. The wound was thoroughly irrigated and then closed in layers. After the wound was closed I verified that all instrument, sponge, and sharp counts were correct. A sterile dressing was applied. The patient was then awoken from her anesthetic, transferred from the OR table to a gurney, and brought to recovery having tolerated the procedure well. Syeda Camejo PA-C was required as a skilled sales assistant institutional sales due to the complexity of the surgery for patient positioning, draping, retraction, placement of hardware, closure of wound, and application of dressing. Plan: The patient is going to be toe-touch weightbearing on her right leg. She will receive 2 doses of postoperative antibiotics. DVT prophylaxis with aspirin. Internal medicine for preoperative medical management. Discharge planning and process, we'll likely need short-term nursing facility or rehab. She will have to follow-up in the office in 2 weeks for nonweightbearing x-rays of the right femur.
[2022-10-24] MEDS: HYDROcodone/APAP 5-325MG 1 EACH TAB PO PRN (23:05)
[2022-10-24] MEDS: SENNOSIDES-DOCUSATE SODIUM 1 EACH TAB PO SCH (23:07)
[2022-10-24] MEDS: ASPIRIN 81 MG PO SCH (23:07)
[2022-10-24] MEDS: LACTATED RINGERS 1,000 ML IV SCH (23:18)
[2022-10-24 23:45] LABS: Basophils % (A) 0 %; Eosinophils % (A) 0 %; HCT 29.8 % (34.0-46.0); Lymphocytes # (A) 0.4 k/uL (1.0-4.8); Lymphocytes % (A) 4 %; MCH 30.5 pg (25.0-35.0); MCHC 32.4 g/dL (31.0-37.0); MCV 94.1 fL (80.0-100.0); Mean Platelet Volume 8.2; Monocytes # (A) 0.5 k/uL (0-1.0); Monocytes % (A) 4 %; Neutrophils # (A) 11.2 k/uL (1.3-7.7); Neutrophils % (A) 92 %; Platelet Count 158 k/uL (150-450); RBC 3.17 m/uL (3.80-5.40); RDW 13.3 % (11.5-15.5); WBC 12.2 k/uL (3.8-10.6)
[2022-10-24 23:50] LABS: HGB 9.7 gm/dL (11.4-16.0)
[2022-10-25] MEDS: LEVOTHYROXINE 112 MCG TAB PO SCH (06:00)
[2022-10-25] MEDS: HYDROcodone/APAP 5-325MG 1 EACH TAB PO PRN ×3 (06:01→21:12)
[2022-10-25] MEDS: ASPIRIN 81 MG PO SCH ×2 (08:49→21:11)
[2022-10-25] MEDS: PANTOPRAZOLE 40 MG/10 ML VIAL IV SCH (08:49)
[2022-10-25] MEDS: SODIUM CHLORIDE 0.9% 1,000 ML IV SCH ×2 (14:23→22:47)
[2022-10-25] MEDS: LACTATED RINGERS 1,000 ML IV SCH ×2 (14:23→22:46)
--- NOTE | 2022-10-25 15:40 | P.PN ---
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 Chart review shows patient had a positive stress echo back in 2014 and underwent cardiac catheterization showing normal coronary arteries with normal LV size and systolic function. Patient presents to the hospital after sustaining a fall with trauma to the right lateral leg. Pt states she has followed up with cardiology a few months ago and will follow up in 1 year time. Patient was at the gym when the fall happened. Denies head injury, no loss of consciousness. States she was walking when she went down. She does present with significant pain that extends towards the knee with increased pain with movement. Right knee xray showing displaced oblique fracture of the distal femur, intraosseous lesion distal femur could be chondroid lesion vs. bone infarct. Follow up right femur xray showing similar changes. Labs on admission show a white count of 12.5 most likely reactive to trauma, potassium 3.4. Blood glucose elevated at 155. Patient is afebrile, heart rate 80s, blood pressure 145/83, 92% room air. EKG reviewed showing normal sinus rhythm with no ST or T wave abnormalities. She is receiving pain management with IV dilaudid, norco and being hydrated. Patient is cleared medically to undergo surgical repair of right femur fracture. She is considered low operative risk at this time. 10/25/2022 Patient sitting up in chair today. Reports no pain to right leg. Worked with physical therapy. She is using incentive spirometer. Reports no chest pain, no shortness of breath. Physical therapy recommending subacute rehab which will most likely be tomorrow. Continue current medications. Review of Systems Constitutional: Denied any fatigue denied any fever. Cardio vascular: denied any chest pain, palpitations Gastrointestinal: denied any nausea, vomiting, diarrhea Pulmonary: Denied any shortness of breath cough Neurologic denied any new focal deficits All inpatient medications were reviewed and appropriate changes in these medications as dictated in the interval history and assessment and plan. PHYSICAL EXAMINATION: GENERAL: The patient is alert and oriented x3, not in any acute distress. Well developed, well nourished. HEENT: Pupils are round and equally reacting to light. EOMI. No scleral icterus. No conjunctival pallor. Normocephalic, atraumatic. No pharyngeal erythema. No thyromegaly. CARDIOVASCULAR: S1 and S2 present. No murmurs, rubs, or gallops. PULMONARY: Chest is clear to auscultation, no wheezing or crackles. ABDOMEN: Soft, nontender, nondistended, normoactive bowel sounds. No palpable organomegaly. MUSCULOSKELETAL: No joint swelling or deformity. EXTREMITIES: No cyanosis, clubbing, or pedal edema. NEUROLOGICAL: Gross neurological examination did not reveal any focal deficits. SKIN: No rashes. Assessment and plan Assessment Traumatic injury and fall Right oblique fracture of distal femur postoperative day #1 open reduction and internal fixation of right inter-prosthetic femoral shaft fracture Leukocytosis reactive Hypokalemia, resolved Hyperglycemia History gastroesophageal reflux disease History thyroid disorder History sleep apnea does not use cpap GI prophylaxis DVT prophylaxis as per primary Full Code Plan Continue current home medications Monitor blood pressure Subacute rehab on discharge when cleared by surgery DVT prophylaxis aspirin BID per surgery The impression and plan of care has been dictated by Grace Encarnacion, Nurse Practitioner as directed. Dr. Jaspreet MD I have performed a history and physical examination and medical decision making of this patient, discussed the same with the dictator, and agree with the dictators assessment and plan as written, documented as a scribe. Based on total visit time, I have performed more than 50% of this visit. Objective - Vital Signs Vital signs: Vital Signs Temp 98.2 F 10/25/22 14:00 Pulse 81 10/25/22 14:00 Resp 19 10/25/22 14:00 BP 108/58 10/25/22 14:00 Pulse Ox 95 10/25/22 14:00 FiO2 Intake & Output 10/24/22 10/25/22 10/25/22 18:59 06:59 18:59 Intake Total 1550 150 Output Total 1350 1900 500 Balance 200 -1750 -500 Weight 58.967 kg Intake: IV 1550 150 Output: Urine 1350 1800 500 Uretheral (Marquez) 1100 500 Estimated Blood Loss 100 Other: Voiding Method Indwelling Catheter Indwelling Catheter - Labs CBC & Chem 7: 10/24/22 23:18 10/24/22 11:47 Labs: Abnormal Lab Results - Last 24 Hours (Table) 10/24/22 Range/Units 23:18 WBC 12.2 H (3.8-10.6) k/uL RBC 3.17 L (3.80-5.40) m/uL Hgb 9.7 L D (11.4-16.0) gm/dL Hct 29.8 L (34.0-46.0) % Neutrophils # 11.2 H (1.3-7.7) k/uL Lymphocytes # 0.4 L (1.0-4.8) k/uL Assessment and Plan Time with Patient: Less than 30
--- NOTE | 2022-10-25 15:58 | P.PN ---
Subjective Progress Note Date: 10/25/22 This patient is an 81- year old female who is status-post ORIF right interprosthetic femoral shaft fracture on 10/24/22. Today is post-operative day #1. Patient is examined bedside with Dr. Camara. Patient is up to the bedside chair. She states the pain in her right leg is well-controlled at this time. She is doing well with no complaints. Vital signs stable. Objective - Vital Signs Vital signs: Vital Signs Temp 98.2 F 10/25/22 14:00 Pulse 81 10/25/22 14:00 Resp 19 10/25/22 14:00 BP 108/58 10/25/22 14:00 Pulse Ox 95 10/25/22 14:00 FiO2 Intake & Output 10/24/22 10/25/22 10/25/22 18:59 06:59 18:59 Intake Total 1550 150 Output Total 1350 1900 500 Balance 200 -1750 -500 Weight 58.967 kg Intake: IV 1550 150 Output: Urine 1350 1800 500 Uretheral (Marquez) 1100 500 Estimated Blood Loss 100 Other: Voiding Method Indwelling Catheter Indwelling Catheter - Exam On examination, the patient is sitting up in the bedside chair in no apparent distress. She is alert and oriented 3. On inspection of her right lower extremity, there is a clean, dry, intact OpSite dressing along the lateral thigh. There is no bleeding or drainage through the dressing. The thigh is soft and compressible. Motor and sensory function is intact of the right lower extremity. Right dorsalis pedis pulse easily palpable, right lower extremity warm and well-perfused. - Labs CBC & Chem 7: 10/24/22 23:18 10/24/22 11:47 Labs: Abnormal Lab Results - Last 24 Hours (Table) 10/24/22 Range/Units 23:18 WBC 12.2 H (3.8-10.6) k/uL RBC 3.17 L (3.80-5.40) m/uL Hgb 9.7 L D (11.4-16.0) gm/dL Hct 29.8 L (34.0-46.0) % Neutrophils # 11.2 H (1.3-7.7) k/uL Lymphocytes # 0.4 L (1.0-4.8) k/uL Assessment and Plan Assessment: Status-post ORIF right interprosthetic femoral shaft fracture on 10/24/22. Postoperative day #1. Plan: - Toe-touch weightbearing operative extremity with a walker. Up with assistance. - Physical therapy for gait and balance training. - Keep operative dressings intact. - Pain management as needed. - 2 doses postoperative IV antibiotics complete. - Aspirin 81 mg BID for DVT prophylaxis. - Internal medicine for perioperative medical management. - Case management consulted for discharge planning. Anticipate discharge to rehab in next 1-2 days.
[2022-10-25 17:43] LABS: Appearance,Urine Clear (Clear); Bilirubin,Urine Negative (Negative); Blood,Urine Negative (Negative); Color,Urine Colorless; Glucose,Urine (UA) Negative (Negative); Ketones,Urine Negative (Negative); Leukocyte Esterase,Urine Negative (Negative); Nitrite,Urine Negative (Negative); PH, Urine 6.5 (5.0-8.0); Protein,Urine Negative (Negative); Specific Gravity,Urine 1.007 (1.001-1.035); Urobilinogen,Urine <2.0 mg/dL (<2.0)
[2022-10-25] MEDS ORDERED: TAMSULOSIN 0.4 MG CAP.ER.24H PO SCH (18:30)
[2022-10-25] MEDS: SENNOSIDES-DOCUSATE SODIUM 1 EACH TAB PO SCH (21:11)
[2022-10-26] MEDS: HYDROcodone/APAP 5-325MG 1 EACH TAB PO PRN (06:38)
[2022-10-26] MEDS: LEVOTHYROXINE 112 MCG TAB PO SCH (06:38)
[2022-10-26 08:55] LABS: Basophils # (A) 0.01 X 10*3/uL (0.00-0.10); Basophils % (A) 0.1 %; Eosinophils # (A) 0.04 X 10*3/uL (0.04-0.35); Eosinophils % (A) 0.5 %; HCT 23.5 % (37.2-46.3); HGB 8.2 g/dL (12.0-15.0); Immature Grans, Automated 0.4 %; Lymphocytes # (A) 0.97 X 10*3/uL (0.90-5.00); Lymphocytes % (A) 12.6 %; MCHC 34.9 g/dL (32.0-37.0); MCV 91.8 fL (80.0-97.0); Mean Platelet Volume 10.3 fL (9.5-12.2); Monocytes # (A) 0.77 X 10*3/uL (0.20-1.00); NRBC Per 100 WBC 0 /100 WBCS (0.0-0.0); Neutrophils # (A) 5.86 X 10*3/uL (1.80-7.70); Neutrophils % (A) 76.4 %; Platelet Count 139 X 10*3/uL (140-440); RBC 2.56 X 10*6/uL (4.10-5.20); RDW 13.2 % (11.5-14.5); WBC 7.68 X 10*3/uL (4.50-10.00)
[2022-10-26 09:11] LABS: African American GFR (CKD) 98.4 (60.0-200.0); Anion Gap 10.4 mmol/L (10.00-18.00); BUN/Creat Ratio 19.67 Ratio (12.00-20.00); Blood Urea Nitrogen 11.8 mg/dL (9.0-27.0); Calcium 8.5 mg/dL (8.7-10.3); Carbon Dioxide 22.6 mmol/L (20.0-27.5); Non-African American GFR(CKD) 84.9 (60.0-200.0); Potassium 3.4 mmol/L (3.5-5.5)
[2022-10-26] MEDS: PANTOPRAZOLE 40 MG/10 ML VIAL IV SCH (09:33)
[2022-10-26] MEDS: ASPIRIN 81 MG PO SCH (09:33)
[2022-10-26] MEDS ORDERED: POTASSIUM CHLORIDE ER 20 MEQ TAB.ER PO STA ×2 (10:17)
--- NOTE | 2022-10-26 12:57 | P.DS ---
Providers Date of admission: 10/23/22 14:19 Expected date of discharge: 10/26/22 Attending physician: Roman Camara Consults: 10/23/22 14:19 Consult Physician Urgent Consulting Provider: Je Vogel Consult Reason/Comments: medical clearance, care Do you want consulting provider notified?: Yes Primary care physician: [facility] Course: This is an 81-year-old female who is admitted to [facility] on 10/23/22 after a ground-level fall and sustaining injury to the right lower extremity. X-rays in the emergency department revealed a right interprosthetic femoral shaft fracture. She is admitted to our service for surgical intervention and care. Patient was taken to surgery for ORIF of right interprosthetic femur fracture on 10/24/[address] Camara. The procedure was performed without complication or sequelae. The patient is doing fairly well postoperatively. Vital signs and labs are stable on postoperative day #2. Patient was examined bedside today. Patient states she is doing well and has no specific complaints. She has been working with physical therapy and was up to the bedside chair yesterday. Marquez catheter was placed yesterday afternoon after a failed voiding trial. No new complaints or concerns on the day of discharge. On examination, the patient is sitting up in bed. She is alert and orientated x3. On inspection of the right thigh, there are clean, dry, intact Opsite dressings intact. There is mild swelling of the thigh, thigh is soft and compressible. Patient has good strength and ROM of the right ankle and toes. Motor and sensory function is intact of the right lower extremity. Dorsalis pedis pulse +2, right lower extremity is warm and well perfused. Calf is soft and non-tender. Patient is discharged to rehab in good condition, pending medical clearance today. Patient will follow-up in the office in [address] Camara. Please see med rec for accurate list of discharge medication. Patient Condition at Discharge: Serious Plan - Discharge Summary Discharge Rx Participant: No New Discharge Prescriptions: New Aspirin 81 mg PO BID 30 Days #60 tab Docusate [Colace] 100 mg PO BID #60 capsule HYDROcodone/APAP 5-325MG [[place] 5-325] 1 - 2 tab PO Q6HR PRN 7 Days #32 tab PRN Reason: Pain No Action Omeprazole [PriLOSEC] 20 mg PO DAILY Levothyroxine Sodium [Synthroid] 112 mcg PO DAILY Discharge Medication List Omeprazole [PriLOSEC] 20 mg PO DAILY 05/29/14 [History] Levothyroxine Sodium [Synthroid] 112 mcg PO DAILY 10/23/22 [History] Aspirin 81 mg PO BID 30 Days #60 tab 10/26/22 [Rx] Docusate [Colace] 100 mg PO BID #60 capsule 10/26/22 [Rx] HYDROcodone/APAP 5-325MG [[place] 5-325] 1 - 2 tab PO Q6HR PRN 7 Days #32 tab 10/26/22 [Rx] Follow up Appointment(s)/Referral(s): Nickie De Anda III, MD [Primary Care Provider] - 1-2 days John Alston [NON-STAFF] - As Needed Roman Camara MD [Medical Doctor] - 2 Weeks
--- NOTE | 2022-10-26 13:06 | P.PN ---
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 Chart review shows patient had a positive stress echo back in 2014 and underwent cardiac catheterization showing normal coronary arteries with normal LV size and systolic function. Patient presents to the hospital after sustaining a fall with trauma to the right lateral leg. Pt states she has followed up with cardiology a few months ago and will follow up in 1 year time. Patient was at the gym when the fall happened. Denies head injury, no loss of consciousness. States she was walking when she went down. She does present with significant pain that extends towards the knee with increased pain with movement. Right knee xray showing displaced oblique fracture of the distal femur, intraosseous lesion distal femur could be chondroid lesion vs. bone infarct. Follow up right femur xray showing similar changes. Labs on admission show a white count of 12.5 most likely reactive to trauma, potassium 3.4. Blood glucose elevated at 155. Patient is afebrile, heart rate 80s, blood pressure 145/83, 92% room air. EKG reviewed showing normal sinus rhythm with no ST or T wave abnormalities. She is receiving pain management with IV dilaudid, norco and being hydrated. Patient is cleared medically to undergo surgical repair of right femur fracture. She is considered low operative risk at this time. 10/25/2022 Patient sitting up in chair today. Reports no pain to right leg. Worked with physical therapy. She is using incentive spirometer. Reports no chest pain, no shortness of breath. Physical therapy recommending subacute rehab which will most likely be tomorrow. Continue current medications. 10/26/2022 Patient is evaluated today sitting up in bed today. She failed voiding trial and indwelling catheter was reinserted. She reports having issues with urinary retention after all of her surgeries in the past. She has followed with urology in the past. Recommending to continue IDC for atleast 2 additional days and to see urology on discharge as well. Patient agreeable to this plan. Hemoglobin today 8.2, potassium 3.4. She received oral potassium supplementation. Covid is negative. Urinalysis negative for infection. 94% room air, afebrile, heart rate 97, blood pressure 103/59. Review of Systems Constitutional: Denied any fatigue denied any fever. Cardio vascular: denied any chest pain, palpitations Gastrointestinal: denied any nausea, vomiting, diarrhea Pulmonary: Denied any shortness of breath cough Neurologic denied any new focal deficits All inpatient medications were reviewed and appropriate changes in these medications as dictated in the interval history and assessment and plan. PHYSICAL EXAMINATION: GENERAL: The patient is alert and oriented x3, not in any acute distress. Well developed, well nourished. HEENT: Pupils are round and equally reacting to light. EOMI. No scleral icterus. No conjunctival pallor. Normocephalic, atraumatic. No pharyngeal erythema. No thyromegaly. CARDIOVASCULAR: S1 and S2 present. No murmurs, rubs, or gallops. PULMONARY: Chest is clear to auscultation, no wheezing or crackles. ABDOMEN: Soft, nontender, nondistended, normoactive bowel sounds. No palpable organomegaly. MUSCULOSKELETAL: No joint swelling or deformity. EXTREMITIES: No cyanosis, clubbing, or pedal edema. NEUROLOGICAL: Gross neurological examination did not reveal any focal deficits. SKIN: No rashes. Assessment and plan Assessment Traumatic injury and fall Right oblique fracture of distal femur postoperative day #2 open reduction and internal fixation of right inter-prosthetic femoral shaft fracture Leukocytosis reactive Postoperative urinary retention normal for patient, IDC has been inserted Hypokalemia, resolved Hyperglycemia History gastroesophageal reflux disease History thyroid disorder History sleep apnea does not use cpap GI prophylaxis DVT prophylaxis as per primary Full Code Plan Continue current home medications Monitor blood pressure Subacute rehab on discharge when cleared by surgery Continue with IDC on discharge and follow with urology on discharge. DVT prophylaxis aspirin BID per surgery The impression and plan of care has been dictated by Grace Encarnacion Nurse Practitioner as directed. Dr. Jaspreet MD I have performed a history and physical examination and medical decision making of this patient, discussed the same with the dictator, and agree with the dictators assessment and plan as written, documented as a scribe. Based on total visit time, I have performed more than 50% of this visit. Objective - Vital Signs Vital signs: Vital Signs Temp 98.7 F 10/26/22 08:00 Pulse 91 10/26/22 08:00 Resp 20 10/26/22 08:00 BP 103/59 10/26/22 08:00 Pulse Ox 94 L 10/26/22 08:00 FiO2 Intake & Output 10/25/22 10/26/22 10/26/22 18:59 06:59 18:59 Output Total 1250 1800 Balance -1250 -1800 Output: Urine 1250 1800 Uretheral (Marquez) 500 Other: Voiding Method Indwelling Catheter Indwelling Catheter - Labs CBC & Chem 7: 10/26/22 05:49 10/26/22 05:49 Labs: Abnormal Lab Results - Last 24 Hours (Table) 10/26/22 10/26/22 Range/Units 05:49 05:49 RBC 2.56 L (4.10-5.20) X 10*6/uL Hgb 8.2 L (12.0-15.0) g/dL Hct 23.5 L (37.2-46.3) % Plt Count 139 L (140-440) X 10*3/uL Potassium 3.4 L (3.5-5.5) mmol/L Calcium 8.5 L (8.7-10.3) mg/dL Assessment and Plan Time with Patient: Less than 30
[2022-10-26 13:53] VITALS: BP 124/74; PULSE 87; RESP 19; TEMP 98
== END 2022-10-26 16:08 | DRG 481 ==
LOC: EC 11:58 → 4SSUR 14:19
PROVIDERS: ADMIT Orthopaedic Surgery; ATTEND Orthopaedic Surgery
PROC: 0QS804Z Reposition Right Femoral Shaft with Internal Fixation Device, Open Approach (ICD-10-PCS; principal; 2022-10-24 07:30)
DX: S72.331A Displaced oblique fracture of shaft of right femur, initial encounter for closed fracture (principal); M97.01XA Periprosthetic fracture around internal prosthetic right hip joint, initial encounter; M97.11XA Periprosthetic fracture around internal prosthetic right knee joint, initial encounter; W18.30XA Fall on same level, unspecified, initial encounter; Y93.01 Activity, walking, marching and hiking; Y92.39 Other specified sports and athletic area as the place of occurrence of the external cause; R33.9 Retention of urine, unspecified; E87.6 Hypokalemia; R73.9 Hyperglycemia, unspecified; K21.9 Gastro-esophageal reflux disease without esophagitis; D72.829 Elevated white blood cell count, unspecified; G47.30 Sleep apnea, unspecified; Z20.822 Contact with and (suspected) exposure to COVID-19; Z96.651 Presence of right artificial knee joint; Z96.641 Presence of right artificial hip joint; E89.0 Postprocedural hypothyroidism; Z88.8 Allergy status to other drugs, medicaments and biological substances; Z88.5 Allergy status to narcotic agent; Z79.890 Hormone replacement therapy
CPT/HCPCS: 80048; 80053; 81003; 84132; 85025; 85610; 85730; 87635; 93005; 96361; 96374; 96375; 96376; 99285

== ENCOUNTER 2022-10-26 19:14 | Inpatient (IN) | payer MEDICARE ==
[2022-10-26] MEDS ORDERED: HEPARIN SODIUM 1,000 UN/ML (10ML VL) IV ONE (19:35)
[2022-10-26] MEDS ORDERED: DILTIAZEM DRIP BOLUS FROM BAG 1 MG SOLN IV ONE ×2 (19:35→21:06)
[2022-10-26] MEDS ORDERED: DILTIAZEM 125 MG in SODIUM CHLORIDE 0.9% 100 ML IV SCH (19:45)
[2022-10-26] MEDS ORDERED: HEPARIN SOD,PORK IN 0.45% NACL 25,000 UNIT in 0.45% NACL 1 250ML.BAG IV SCH (19:45)
[2022-10-26 19:53] LABS: Basophils % (A) 0 %; Eosinophils # (A) 0.1 k/uL (0-0.7); Eosinophils % (A) 1 %; HCT 25.4 % (34.0-46.0); HGB 8.7 gm/dL (11.4-16.0); Lymphocytes % (A) 12 %; MCH 31.4 pg (25.0-35.0); MCHC 34.2 g/dL (31.0-37.0); Mean Platelet Volume 8.2; Monocytes # (A) 0.5 k/uL (0-1.0); Monocytes % (A) 6 %; Neutrophils # (A) 6.9 k/uL (1.3-7.7); Neutrophils % (A) 80 %; Platelet Count 160 k/uL (150-450); RBC 2.76 m/uL (3.80-5.40); RDW 12.8 % (11.5-15.5); WBC 8.7 k/uL (3.8-10.6)
[2022-10-26] MEDS ORDERED: HYDROmorphone 1 MG/ML 1 ML SYRINGE IVP STA (19:53)
[2022-10-26 20:06] LABS: ALT 23 U/L (4-34); AST 60 U/L (14-36); African American GFR (CKD) >90 (>60 ml/min/1.73 sqM); Alkaline Phosphatase 71 U/L (38-126); Anion Gap 5 mmol/L; Blood Urea Nitrogen 13 mg/dL (7-17); Calcium 8.4 mg/dL (8.4-10.2); Carbon Dioxide 24 mmol/L (22-30); Chloride 106 mmol/L (98-107); Glucose 138 mg/dL (74-99); Magnesium 1.6 mg/dL (1.6-2.3); Non-African American GFR(CKD) 84 (>60 ml/min/1.73 sqM); Sodium 135 mmol/L (137-145); Total Bilirubin 0.4 mg/dL (0.2-1.3); Total Protein 5.4 g/dL (6.3-8.2)
[2022-10-26 20:12] LABS: INR 1.1 (<1.2); Prothrombin Time 11.1 sec (9.0-12.0)
[2022-10-26 20:13] LABS: Partial Thromboplastin Time 19.4 sec (22.0-30.0)
[2022-10-26] MEDS ORDERED: SODIUM CHLORIDE 0.9% 500 ML 500 ML IV STA ×2 (20:13→21:06)
--- NOTE | 2022-10-26 20:18 | ED ---
Arrhythmia/Palpitations HPI - General Chief Complaint: Arrhythmia/Palpitations Stated Complaint: AFib Time Seen by Provider: 10/26/22 19:30 Source: patient, EMS, RN notes reviewed, old records reviewed Mode of arrival: EMS Limitations: no limitations - History of Present Illness Initial Comments: 81-year-old female who was just discharged earlier today was found upon arrival to the care home be in atrial fibrillation with a rapid ventricular response rate. She denies any chest pain any palpitations fevers chills or sweats she does complain of some postoperative pain to the right femur that was repaired on the . No other complaints she is got no history of A. fib she does have a history of thyroid disease and is on indications. MD Complaint: palpitations, atrial fibrillation - Related Data Home Medications Medication Instructions Recorded Confirmed Omeprazole [PriLOSEC] 20 mg PO DAILY 05/29/14 10/26/22 Levothyroxine Sodium [Synthroid] 112 mcg PO DAILY 10/23/22 10/26/22 Sennosides-Docusate Sodium 2 tab PO HS 10/26/22 10/26/22 [Senokot-S] Previous Rx's Medication Instructions Recorded Aspirin 81 mg PO BID 30 Days #60 tab 10/26/22 Docusate [Colace] 100 mg PO BID #60 capsule 10/26/22 HYDROcodone/APAP 5-325MG [[place] 1 - 2 tab PO Q6HR PRN 7 Days #32 10/26/22 5-325] tab Tamsulosin [Flomax] 0.4 mg PO PC-SUPPER cap 10/26/22 Allergies Allergy/AdvReac Type Severity Reaction Status Date / Time promethazine Allergy Nausea & Verified 10/26/22 20:19 Vomiting & Diarrhea tramadol [From Ultram] AdvReac severe Verified 10/26/22 20:19 headache and n/v Review of Systems ROS Statement: Those systems with pertinent positive or pertinent negative responses have been documented in the HPI. ROS Other: All systems not noted in ROS Statement are negative. Past Medical History Past Medical History: Chest Pain / Angina, GERD/Reflux, Sleep Apnea/CPAP/BIPAP, Thyroid Disorder Additional Past Medical History / Comment(s): "low hemoglobin" ,sciatica, does not use cpap,urinary leakage History of Any Multi-Drug Resistant Organisms: None Reported Past Surgical History: Joint Replacement, Orthopedic Surgery Additional Past Surgical History / Comment(s): thyroid surgery, rt knee arthroscopic x 2 and replacement,bladder susp,bladder procedure,pain clinic proc Past Anesthesia/Blood Transfusion Reactions: Previous Problems w/ Anesthesia, Postoperative Nausea & Vomiting (PONV) Additional Past Anesthesia/Blood Transfusion Reaction / Comment(s): took long time to come out Past Psychological History: No Psychological Hx Reported Smoking Status: Never smoker Past Alcohol Use History: None Reported Past Drug Use History: None Reported - Past Family History Father History Unknown: Yes Family Medical History: No Reported History Mother History Unknown: Yes Family Medical History: No Reported History Additional Family Medical History / Comment(s): "kidney problems" General Exam - General Exam Comments Initial Comments: This is a well-developed well-nourished awake alert oriented 4 female Limitations: no limitations General appearance: alert, in no apparent distress Head exam: Present: atraumatic, normocephalic, normal inspection Eye exam: Present: normal appearance, PERRL, EOMI. Absent: scleral icterus, conjunctival injection, periorbital swelling ENT exam: Present: normal exam, mucous membranes moist Neck exam: Present: normal inspection, full ROM, other (No stridor JVD or bruits). Absent: tenderness, meningismus, lymphadenopathy Respiratory exam: Present: normal lung sounds bilaterally. Absent: respiratory distress, wheezes, rales, rhonchi, stridor Cardiovascular Exam: Present: tachycardia, irregular rhythm. Absent: systolic murmur, diastolic murmur, rubs, gallop, clicks GI/Abdominal exam: Present: soft, normal bowel sounds. Absent: distended, tenderness, guarding, rebound, rigid External exam: Present: other (Marquez catheter in place) Extremities exam: Present: full ROM, normal capillary refill, other (Dressing applied topically right femur). Absent: tenderness, pedal edema, joint swelling, calf tenderness Back exam: Present: normal inspection Neurological exam: Present: alert, oriented X3, CN II-XII intact Psychiatric exam: Present: normal affect, normal mood Skin exam: Present: warm, dry, intact, normal color. Absent: rash Course Vital Signs 10/26/22 10/26/22 10/26/22 19:20 19:35 19:40 Temperature 98.6 F Pulse Rate 165 H 179 H 179 H Respiratory 20 15 14 Rate Blood Pressure 114/72 O2 Sat by Pulse 98 97 98 Oximetry 10/26/22 10/26/22 10/26/22 19:50 20:00 20:10 Temperature Pulse Rate 165 H 149 H 144 H Respiratory 22 25 H 18 Rate Blood Pressure O2 Sat by Pulse 97 94 L 95 Oximetry EKG Findings - EKG Results: EKG: interpreted by ERMD (EKG read by me atrial fibrillation with a rapid ventricular response rate of 169 QRS duration 81 daily since QTC 203/295 is compared with an EKG dated 10/24/22 which showed normal sinus rhythm with no acute processes.) Medical Decision Making - Medical Decision Making I did discuss the findings with patient family also with Francia Gillis covering for Dr. Vogel the patient be admitted with cardiology consultation. Dr. Fletcher is consulted. - Lab Data Result diagrams: 10/26/22 19:39 10/26/22 19:39 Lab Results 10/26/22 10/26/22 10/26/22 Range/Units 19:39 19:39 19:39 WBC 8.7 (3.8-10.6) k/uL RBC 2.76 L (3.80-5.40) m/uL Hgb 8.7 L (11.4-16.0) gm/dL Hct 25.4 L (34.0-46.0) % MCV 92.0 (80.0-100.0) fL MCH 31.4 (25.0-35.0) pg MCHC 34.2 (31.0-37.0) g/dL RDW 12.8 (11.5-15.5) % Plt Count 160 (150-450) k/uL MPV 8.2 Neutrophils % 80 % Lymphocytes % 12 % Monocytes % 6 % Eosinophils % 1 % Basophils % 0 % Neutrophils # 6.9 (1.3-7.7) k/uL Lymphocytes # 1.0 (1.0-4.8) k/uL Monocytes # 0.5 (0-1.0) k/uL Eosinophils # 0.1 (0-0.7) k/uL Basophils # 0.0 (0-0.2) k/uL PT 11.1 (9.0-12.0) sec INR 1.1 (<1.2) APTT 19.4 L (22.0-30.0) sec Sodium 135 L (137-145) mmol/L Potassium 4.1 (3.5-5.1) mmol/L Chloride 106 (98-107) mmol/L Carbon Dioxide 24 (22-30) mmol/L Anion Gap 5 mmol/L BUN 13 (7-17) mg/dL Creatinine 0.62 (0.52-1.04) mg/dL Est GFR (CKD-EPI)AfAm >90 (>60 ml/min/1.73 sqM) Est GFR (CKD-EPI)NonAf 84 (>60 ml/min/1.73 sqM) Glucose 138 H (74-99) mg/dL Calcium 8.4 (8.4-10.2) mg/dL Magnesium 1.6 (1.6-2.3) mg/dL Total Bilirubin 0.4 (0.2-1.3) mg/dL AST 60 H (14-36) U/L ALT 23 (4-34) U/L Alkaline Phosphatase 71 (38-126) U/L Troponin I (0.000-0.034) ng/mL Total Protein 5.4 L (6.3-8.2) g/dL Albumin 3.0 L (3.5-5.0) g/dL 10/26/22 Range/Units 19:39 WBC (3.8-10.6) k/uL RBC (3.80-5.40) m/uL Hgb (11.4-16.0) gm/dL Hct (34.0-46.0) % MCV (80.0-100.0) fL MCH (25.0-35.0) pg MCHC (31.0-37.0) g/dL RDW (11.5-15.5) % Plt Count (150-450) k/uL MPV Neutrophils % % Lymphocytes % % Monocytes % % Eosinophils % % Basophils % % Neutrophils # (1.3-7.7) k/uL Lymphocytes # (1.0-4.8) k/uL Monocytes # (0-1.0) k/uL Eosinophils # (0-0.7) k/uL Basophils # (0-0.2) k/uL PT (9.0-12.0) sec INR (<1.2) APTT (22.0-30.0) sec Sodium (137-145) mmol/L Potassium (3.5-5.1) mmol/L Chloride (98-107) mmol/L Carbon Dioxide (22-30) mmol/L Anion Gap mmol/L BUN (7-17) mg/dL Creatinine (0.52-1.04) mg/dL Est GFR (CKD-EPI)AfAm (>60 ml/min/1.73 sqM) Est GFR (CKD-EPI)NonAf (>60 ml/min/1.73 sqM) Glucose (74-99) mg/dL Calcium (8.4-10.2) mg/dL Magnesium (1.6-2.3) mg/dL Total Bilirubin (0.2-1.3) mg/dL AST (14-36) U/L ALT (4-34) U/L Alkaline Phosphatase (38-126) U/L Troponin I 1.190 H* (0.000-0.034) ng/mL Total Protein (6.3-8.2) g/dL Albumin (3.5-5.0) g/dL - Radiology Data Interpreted by me: PG read by me shows no acute findings. Critical Care Time Critical Care Time: Yes Total Critical Care Time: 39 Critical Care Time: Critical care time includes initial presentation with history physical discussed with paramedics upon arrival labs x-rays EKGs total discussion with the family and patient multiple reevaluation is initial orders documentation the above also this includes discussion with Francia who is covering for Dr. Vogel. This also includes review of old charting that was available Disposition Clinical Impression: Rapid atrial fibrillation, Non-ST elevation myocardial infarction (NSTEMI), Chronic anemia Disposition: ADMITTED IP TO THIS HOSP Condition: Fair Referrals: Nickie De Anda III, MD [Primary Care Provider] - 1-2 days Decision Date: 10/26/22 Decision Time: 20:36
[2022-10-26 20:32] LABS: Potassium 4.1 mmol/L (3.5-5.1)
[2022-10-26] MEDS ORDERED: NALOXONE 0.4 MG/ML 1 ML VIAL IV PRN (20:37)
[2022-10-26] MEDS ORDERED: ACETAMINOPHEN TAB 325 MG TAB PO PRN (20:37)
[2022-10-26] MEDS: DILTIAZEM 125 MG in SODIUM CHLORIDE 0.9% 100 ML IV SCH (21:17)
--- NOTE | 2022-10-26 22:02 | XR ---
EXAMINATION TYPE: XR chest 2V DATE OF EXAM: 10/26/2022 COMPARISON: 08/10/2015 INDICATION: Dysrhythmia TECHNIQUE: Frontal and lateral views of the chest are obtained. FINDINGS: The heart size is normal. The pulmonary vasculature is normal. The lungs are clear. Scoliosis is present. IMPRESSION: 1. No acute pulmonary process.
[2022-10-27] MEDS: HYDROcodone/APAP 5-325MG 1 EACH TAB PO PRN ×3 (02:39→21:07)
[2022-10-27] MEDS: DILTIAZEM 125 MG in SODIUM CHLORIDE 0.9% 100 ML IV SCH (06:30)
[2022-10-27] MEDS: SENNOSIDES-DOCUSATE SODIUM 1 EACH TAB PO SCH ×2 (07:49→20:47)
[2022-10-27] MEDS: DOCUSATE 100 MG CAP PO SCH ×3 (07:49→20:47)
[2022-10-27] MEDS: PANTOPRAZOLE 40 MG TABLET PO SCH (08:56)
--- NOTE | 2022-10-27 10:58 | P.CRDCN ---
History of Present Illness Consult date: 10/27/22 Requesting physician: Je Vogel Reason for Consult (text): Rapid A. fib, non-STEMI Chief complaint: elevated heart rate History of present illness: This is a pleasant 81-year-old female patient who follows in the office with Dr. Coates. She has a history of hypertension, hyperlipidemia and was recently admitted after sustaining a fracture to the right inter-prosthetic femoral shaft at which time she subsequently underwent open reduction and internal fixation of the right inter-prosthetic femoral shaft. She was transferred to [facility] for rehab and upon arrival there was noted to have an elevated heart rate in the 170s. She was subsequently transferred back to the emergency department here and found to be in atrial fibrillation with rapid ventricular response of new onset. She has no history of atrial fibrillation. She denies any symptoms at the time but was having significant amount of pain to the transfer. Chest x-ray on admission showed no acute pulmonary process. Laboratory values showed hemoglobin 8.7, sodium 135, potassium 4.1, BUN 13, creatinine 0.62, TSH 0.410 and a free T4 of 1.59. Troponins were elevated at 1.190, 1.21 and 1.02. She was initiated on Cardizem IV as well as IV heparin. She is currently maintaining sinus mechanism. She denies any complaints of chest discomfort, shortness of breath, orthopnea or PND. She denies any edema. Complains of surgical site pain. Denies any dizziness, lightheadedness or palpitations. Past Medical History Past Medical History: Chest Pain / Angina, GERD/Reflux, Sleep Apnea/CPAP/BIPAP, Thyroid Disorder Additional Past Medical History / Comment(s): "low hemoglobin" ,sciatica, does not use cpap,urinary leakage History of Any Multi-Drug Resistant Organisms: None Reported Past Surgical History: Joint Replacement, Orthopedic Surgery Additional Past Surgical History / Comment(s): thyroid surgery, rt knee arthroscopic x 2 and replacement,bladder susp,bladder procedure,pain clinic proc Past Anesthesia/Blood Transfusion Reactions: Previous Problems w/ Anesthesia, Postoperative Nausea & Vomiting (PONV) Additional Past Anesthesia/Blood Transfusion Reaction / Comment(s): took long time to come out Past Psychological History: No Psychological Hx Reported Smoking Status: Never smoker Past Alcohol Use History: None Reported Additional Past Alcohol Use History / Comment(s): quit smoking 1959's, smoked few yrs Past Drug Use History: None Reported - Past Family History Father History Unknown: Yes Family Medical History: No Reported History Mother History Unknown: Yes Family Medical History: No Reported History Additional Family Medical History / Comment(s): "kidney problems" Medications and Allergies Home Medications Medication Instructions Recorded Confirmed Type Omeprazole [PriLOSEC] 20 mg PO DAILY 05/29/14 10/26/22 History Levothyroxine Sodium [Synthroid] 112 mcg PO DAILY 10/23/22 10/26/22 History Aspirin 81 mg PO BID 30 Days #60 tab 10/26/22 10/26/22 Rx Docusate [Colace] 100 mg PO BID #60 capsule 10/26/22 10/26/22 Rx HYDROcodone/APAP 5-325MG [[place] 1 - 2 tab PO Q6HR PRN 7 Days #32 10/26/22 10/26/22 Rx 5-325] tab Sennosides-Docusate Sodium 2 tab PO HS 10/26/22 10/26/22 History [Senokot-S] Tamsulosin [Flomax] 0.4 mg PO PC-SUPPER cap 10/26/22 10/26/22 Rx Allergies Allergy/AdvReac Type Severity Reaction Status Date / Time promethazine Allergy Nausea & Verified 10/26/22 20:19 Vomiting & Diarrhea tramadol [From Ultram] AdvReac severe Verified 10/26/22 20:19 headache and n/v Physical Exam Vitals: Vital Signs Temp Pulse Pulse Resp BP BP Pulse Ox 10/27/22 07:54 83 18 103/50 10/27/22 04:00 97.9 F 80 11 L 86/51 10/27/22 00:00 97 F L 106 H 16 95/62 10/26/22 21:50 125 H 18 100/65 97 10/26/22 21:30 100 12 78/59 96 10/26/22 21:20 15 78/59 96 10/26/22 21:10 135 H 14 97/73 95 10/26/22 21:00 137 H 12 86/46 94 L 10/26/22 20:50 135 H 16 86/46 90 L 10/26/22 20:30 151 H 14 95 10/26/22 20:20 142 H 18 92 L 12/15/22 20:10 144 H 18 95 10/26/22 20:00 149 H 25 H 94 L 10/26/22 19:50 165 H 22 97 10/26/22 19:40 179 H 14 98 10/26/22 19:35 179 H 15 97 10/26/22 19:20 98.6 F 165 H 20 114/72 98 Intake and Output 10/26/22 10/27/22 10/27/22 22:59 06:59 14:59 Intake Total 1092.167 Output Total 325 Balance 767.167 Intake: Intake, IV Titration 1092.167 Amount Diltiazem 125 mg In 92.167 Sodium Chloride 0.9% 100 ml @ 10 MG/HR 10 mls/hr IV .[id number] SHAD Rx#: [id number] Sodium Chloride 0.9% 500 500 ml 500 ml @ 999 mls/hr IV .Q31M STA Rx#:[id number] Sodium Chloride 0.9% 500 500 ml 500 ml @ 999 mls/hr IV .Q31M STA Rx#:[id number] Output: Urine 325 Other: Voiding Method Indwelling Catheter Weight 58.967 kg 58.967 kg PHYSICAL EXAMINATION: This is a 81-year-old female in no apparent distress at the time of my examination. HEENT: Head is atraumatic, normocephalic. Pupils are equal, round. Sclerae anicteric. Conjunctivae are clear. Mucous membranes of the mouth are moist. Neck is supple. There is no elevated jugular venous pressure. No carotid bruit is heard. CHEST EXAMINATION: Clear to auscultation bilaterally. No wheezes rales or rhonchi. Respirations even and nonlabored. HEART EXAMINATION: Heart regular, positive S1 and S2. No S3. No S4. Systolic murmur. ABDOMEN: Soft, nontender. Bowel sounds are heard. No organomegaly noted. EXTREMITIES: 2+ peripheral pulses with no evidence of peripheral edema and no calf tenderness noted. NEUROLOGIC EXAMINATION: Patient is awake, alert and oriented x3. Results 10/26/22 19:39 10/26/22 19:39 Cardiac Enzymes 10/26/22 10/26/22 10/26/22 Range/Units 19:39 19:39 22:31 AST 60 H (14-36) U/L Troponin I 1.190 H* 1.210 H* (0.000-0.034) ng/mL 10/27/22 Range/Units 02:06 AST (14-36) U/L Troponin I 1.020 H* (0.000-0.034) ng/mL Coagulation 10/26/22 10/27/22 Range/Units 19:39 02:06 PT 11.1 (9.0-12.0) sec APTT 19.4 L 61.6 H (22.0-30.0) sec CBC 10/26/22 Range/Units 19:39 WBC 8.7 (3.8-10.6) k/uL RBC 2.76 L (3.80-5.40) m/uL Hgb 8.7 L (11.4-16.0) gm/dL Hct 25.4 L (34.0-46.0) % Plt Count 160 (150-450) k/uL Comprehensive Metabolic Panel 10/26/22 Range/Units 19:39 Sodium 135 L (137-145) mmol/L Potassium 4.1 (3.5-5.1) mmol/L Chloride 106 (98-107) mmol/L Carbon Dioxide 24 (22-30) mmol/L BUN 13 (7-17) mg/dL Creatinine 0.62 (0.52-1.04) mg/dL Glucose 138 H (74-99) mg/dL Calcium 8.4 (8.4-10.2) mg/dL AST 60 H (14-36) U/L ALT 23 (4-34) U/L Alkaline Phosphatase 71 (38-126) U/L Total Protein 5.4 L (6.3-8.2) g/dL Albumin 3.0 L (3.5-5.0) g/dL Current Medications Generic Name Dose Route Start Last Admin Trade Name Freq PRN Reason Stop Dose Admin Acetaminophen 650 mg 10/26/22 20:37 Acetaminophen Tab 325 Mg Tab PO Q6HR PRN Mild Pain or Fever > 100.5 Hydrocodone Bitart/Acetaminophen 2 each 10/26/22 20:40 10/27/22 02:39 Hydrocodone/Apap 5-325mg 1 Each Tab PO 2 each Q6HR PRN Administration Pain Docusate Sodium 100 mg 10/26/22 21:00 10/27/22 08:56 Docusate 100 Mg Cap PO 100 mg BID SHAD Administration Heparin Sodium/Sodium Chloride 250 mls @ 7.076 mls/hr 10/26/22 19:45 10/26/22 20:04 25,000 unit/ Sodium Chloride IV 12 units/kg/hr .Q24H SHAD 7.076 mls/hr Administration Protocol 12 UNITS/KG/HR Diltiazem HCl 125 mg/ Sodium 125 mls @ 10 mls/hr 10/26/22 21:15 10/27/22 06:30 Chloride IV 10 mg/hr .[id number] SHAD 10 mls/hr Administration 10 MG/HR Levothyroxine Sodium 112 mcg 10/28/22 06:30 Levothyroxine 112 Mcg Tab PO DAILY@0630 SHAD Naloxone HCl 0.2 mg 10/26/22 20:37 Naloxone 0.4 Mg/Ml 1 Ml Vial IV Q2M PRN Opioid Reversal Pantoprazole Sodium 40 mg 10/27/22 09:00 10/27/22 08:56 Pantoprazole 40 Mg Tablet PO 40 mg DAILY SHAD Administration Senna/Docusate Sodium 2 each 10/26/22 21:00 10/27/22 07:49 Sennosides-Docusate Sodium 1 Each Tab PO Not Given HS SHAD Tamsulosin HCl 0.4 mg 10/27/22 18:30 Tamsulosin 0.4 Mg Cap.Er.24h PO PC-SUPPER SHAD Intake and Output 10/26/22 10/27/22 10/27/22 22:59 06:59 14:59 Intake Total 1092.167 Output Total 325 Balance 767.167 Intake: Intake, IV Titration 1092.167 Amount Diltiazem 125 mg In 92.167 Sodium Chloride 0.9% 100 ml @ 10 MG/HR 10 mls/hr IV .[id number] SHAD Rx#: [id number] Sodium Chloride 0.9% 500 500 ml 500 ml @ 999 mls/hr IV .Q31M STA Rx#:[id number] Sodium Chloride 0.9% 500 500 ml 500 ml @ 999 mls/hr IV .Q31M STA Rx#:[id number] Output: Urine 325 Other: Voiding Method Indwelling Catheter Weight 58.967 kg 58.967 kg Patient Weight 10/28/22 06:59 Weight 58.967 kg 10/26/22 19:39 10/26/22 19:39 Assessment and Plan Assessment: 1 paroxysmal atrial fibrillation with rapid ventricular response, currently maintaining sinus mechanism, Chads vasc score of at least 4 #2 recent right inter-prosthetic femoral shaft fracture status post open reduction and internal fixation 3 hypertension #4 hyperlipidemia Plan: From cardiology's perspective we will obtain a 2-D echo with Doppler study to assess cardiac structure and function. Upon elevation likely secondary to el evated heart rate as patient has a history of normal coronaries seen on cardiac catheterization in 2014 and underwent Lexiscan MPI last year that was normal. We'll add a beta tobin andEliquis. Continue IV Cardizem and heparin. We will continue to follow the patient and provide further recommendations accordingly. EXTRUDER OPERATOR HELPER note has been reviewed, I agree with a documented findings and plan of care. Patient was seen and examined.
[2022-10-27] MEDS: METOPROLOL TARTRATE 25 MG TAB PO SCH ×2 (12:29→20:46)
[2022-10-27] MEDS: APIXABAN 5 MG TAB PO SCH ×2 (12:29→20:46)
[2022-10-27] MEDS ORDERED: bisacodyL 10 MG SUPP RECTAL PRN (12:48)
--- NOTE | 2022-10-27 16:19 | P.HPIM ---
History of Present Illness H&P Date: 10/27/22 This is an 81-year-old female with medical history significant for thyroid disorder with partial thyroidectomy, gastroesophageal reflux disease, sleep apnea does not wear CPAP, orthopedic surgery history of right hip replacement in 2017 and also right total knee replacement. Patient was discharged to [facility] rehab from hospital yesterday and was found to have elevated heart rate 170s when she got there and was brought back to the hospital. Patient denies chest pain, denies palpitations, denies dizziness, denies lightheadedness. Denies shortness of breath. She has no history of atrial fibrillation. She was discharged on aspirin 81 mg twice a day. Patient was admitted to the hospital from 10/23/22 to 10/26/22 after sustaining a fall while at the gym which resulted in right displaced oblique fracture of the distal femur. She underwent surgical repair for this. She had issues with postoperative urine retention and had indwelling catheter placed. She was discharged from the hospital yesterday to subacute rehab. Today she is postoperative day #3. EKG on admission shows atrial fibrillation with heart rate of 169. Chest xray is negative. Hemoglobin is stable at 8.7. Sodium 135, glucose 138. She is found to have troponin elevation at 1.190, 1.210, and 1.020. TSH is 0.410, Free T4 within normal limits at 1.59. She is maintained on synthroid 112 mcg daily. She is admitted to the hospital with cardiology consultation for further evaluation. Has been started on cardizem gtt and also IV heparin. All other home medications resumed. She is also given a 2L fluid bolus in the EC. REVIEW OF SYSTEMS: CONSTITUTIONAL: No fever, no malaise, no fatigue. HEENT: No recent visual problems or hearing problems. Denied any sore throat. CARDIOVASCULAR: No chest pain, orthopnea, PND, no palpitations, no syncope. PULMONARY: No shortness of breath, no cough, no hemoptysis. GASTROINTESTINAL: No diarrhea, no nausea, no vomiting, no abdominal pain. Reports constipation NEUROLOGICAL: No headaches, no weakness, no numbness. HEMATOLOGICAL: Denies any bleeding or petechiae. GENITOURINARY: Denies any burning micturition, frequency, or urgency. MUSCULOSKELETAL/RHEUMATOLOGICAL: Reports right knee pain, right lower extremity edema ENDOCRINE: Denies any polyuria or polydipsia. The rest of the 14-point review of systems is negative. PHYSICAL EXAMINATION: GENERAL: The patient is alert and oriented x3, not in any acute distress. Well developed, well nourished. HEENT: Pupils are round and equally reacting to light. EOMI. No scleral icterus. No conjunctival pallor. Normocephalic, atraumatic. No pharyngeal erythema. No thyromegaly. CARDIOVASCULAR: S1 and S2 present. No murmurs, rubs, or gallops. Regular rate and rhythm PULMONARY: Chest is clear to auscultation, no wheezing or crackles. ABDOMEN: Soft, nontender, nondistended, normoactive bowel sounds. No palpable organomegaly. MUSCULOSKELETAL: Post surgical dressing intact to right thigh, right lower extremity edema. EXTREMITIES: No cyanosis, clubbing, or pedal edema. NEUROLOGICAL: Gross neurological examination did not reveal any focal deficits. SKIN: No rashes. Assessment and Plan Assessment New onset atrial fibrillation with rapid ventricular rate converted to normal sinus rhythm Troponin elevation, rule out ACS Postoperative day #3 surgical repair right femur fracture Postoperative urinary retention has indwelling catheter in place Postoperative anemia stable hemoglobin 8.7. Constipation History partial thyroidectomy maintained on synthroid Sleep apnea does not wear CPAP History GERD History orthopedic surgery Hyponatremia GI prophylaxis DVT prophylaxis Heparin IV Full Code Plan Continue IV cardizem IV heparin Cardiology consultation Echocardiogram ordered Voiding trial today Bowel regimen Pain management Possible D/C back to [facility] Sunday or Sunday The impression and plan of care has been dictated by Grace Encarnacion Nurse Practitioner as directed. Dr. Jaspreet MD I have performed a history and physical examination and medical decision making of this patient, discussed the same with the dictator, and agree with the dictators assessment and plan as written, documented as a scribe. Based on total visit time, I have performed more than 50% of this visit. Past Medical History Past Medical History: Chest Pain / Angina, GERD/Reflux, Sleep Apnea/CPAP/BIPAP, Thyroid Disorder Additional Past Medical History / Comment(s): "low hemoglobin" ,sciatica, does not use cpap,urinary leakage History of Any Multi-Drug Resistant Organisms: None Reported Past Surgical History: Joint Replacement, Orthopedic Surgery Additional Past Surgical History / Comment(s): thyroid surgery, rt knee arthr oscopic x 2 and replacement,bladder susp,bladder procedure,pain clinic proc Past Anesthesia/Blood Transfusion Reactions: Previous Problems w/ Anesthesia, Postoperative Nausea & Vomiting (PONV) Additional Past Anesthesia/Blood Transfusion Reaction / Comment(s): took long time to come out Past Psychological History: No Psychological Hx Reported Smoking Status: Never smoker Past Alcohol Use History: None Reported Past Drug Use History: None Reported - Past Family History Father History Unknown: Yes Family Medical History: No Reported History Mother History Unknown: Yes Family Medical History: No Reported History Additional Family Medical History / Comment(s): "kidney problems" Medications and Allergies Home Medications Medication Instructions Recorded Confirmed Type Omeprazole [PriLOSEC] 20 mg PO DAILY 05/29/14 10/26/22 History Levothyroxine Sodium [Synthroid] 112 mcg PO DAILY 10/23/22 10/26/22 History Aspirin 81 mg PO BID 30 Days #60 tab 10/26/22 10/26/22 Rx Docusate [Colace] 100 mg PO BID #60 capsule 10/26/22 10/26/22 Rx HYDROcodone/APAP 5-325MG [[place] 1 - 2 tab PO Q6HR PRN 7 Days #32 10/26/22 10/26/22 Rx 5-325] tab Sennosides-Docusate Sodium 2 tab PO HS 10/26/22 10/26/22 History [Senokot-S] Tamsulosin [Flomax] 0.4 mg PO PC-SUPPER cap 10/26/22 10/26/22 Rx Allergies Allergy/AdvReac Type Severity Reaction Status Date / Time promethazine Allergy Nausea & Verified 10/26/22 20:19 Vomiting & Diarrhea tramadol [From Ultram] AdvReac severe Verified 10/26/22 20:19 headache and n/v Physical Exam Vitals: Vital Signs Temp Pulse Pulse Resp BP BP Pulse Ox 10/27/22 07:54 83 18 103/50 10/27/22 04:00 97.9 F 80 11 L 86/51 10/27/22 00:00 97 F L 106 H 16 95/62 10/26/22 21:50 125 H 18 100/65 97 10/26/22 21:30 100 12 78/59 96 10/26/22 21:20 15 78/59 96 10/26/22 21:10 135 H 14 97/73 95 10/26/22 21:00 137 H 12 86/46 94 L 12/15/22 20:50 135 H 16 86/46 90 L 10/26/22 20:30 151 H 14 95 10/26/22 20:20 142 H 18 92 L 10/26/22 20:10 144 H 18 95 10/26/22 20:00 149 H 25 H 94 L 10/26/22 19:50 165 H 22 97 10/26/22 19:40 179 H 14 98 10/26/22 19:35 179 H 15 97 10/26/22 19:20 98.6 F 165 H 20 114/72 98 Intake and Output 10/26/22 10/27/22 10/27/22 22:59 06:59 14:59 Intake Total 1092.167 Output Total 325 Balance 767.167 Intake: Intake, IV Titration 1092.167 Amount Diltiazem 125 mg In 92.167 Sodium Chloride 0.9% 100 ml @ 10 MG/HR 10 mls/hr IV .[id number] SHAD Rx#: [id number] Sodium Chloride 0.9% 500 500 ml 500 ml @ 999 mls/hr IV .Q31M STA Rx#:[id number] Sodium Chloride 0.9% 500 500 ml 500 ml @ 999 mls/hr IV .Q31M STA Rx#:[id number] Output: Urine 325 Other: Voiding Method Indwelling Catheter Weight 58.967 kg Results CBC & Chem 7: 10/26/22 19:39 10/26/22 19:39 Labs: Abnormal Lab Results - Last 24 Hours (Table) 10/26/22 10/26/22 10/26/22 Range/Units 19:39 19:39 19:39 RBC 2.76 L (3.80-5.40) m/uL Hgb 8.7 L (11.4-16.0) gm/dL Hct 25.4 L (34.0-46.0) % APTT 19.4 L (22.0-30.0) sec Sodium 135 L (137-145) mmol/L Glucose 138 H (74-99) mg/dL AST 60 H (14-36) U/L Troponin I (0.000-0.034) ng/mL Total Protein 5.4 L (6.3-8.2) g/dL Albumin 3.0 L (3.5-5.0) g/dL TSH 0.410 L (0.465-4.680) mIU/L 10/26/22 10/26/22 10/27/22 Range/Units 19:39 22:31 02:06 RBC (3.80-5.40) m/uL Hgb (11.4-16.0) gm/dL Hct (34.0-46.0) % APTT (22.0-30.0) sec Sodium (137-145) mmol/L Glucose (74-99) mg/dL AST (14-36) U/L Troponin I 1.190 H* 1.210 H* 1.020 H* (0.000-0.034) ng/mL Total Protein (6.3-8.2) g/dL Albumin (3.5-5.0) g/dL TSH (0.465-4.680) mIU/L 10/27/22 Range/Units 02:06 RBC (3.80-5.40) m/uL Hgb (11.4-16.0) gm/dL Hct (34.0-46.0) % APTT 61.6 H (22.0-30.0) sec Sodium (137-145) mmol/L Glucose (74-99) mg/dL AST (14-36) U/L Troponin I (0.000-0.034) ng/mL Total Protein (6.3-8.2) g/dL Albumin (3.5-5.0) g/dL TSH (0.465-4.680) mIU/L Assessment and Plan Time with Patient: Greater than 30
[2022-10-27] MEDS: TAMSULOSIN 0.4 MG CAP.ER.24H PO SCH (17:04)
[2022-10-27] MEDS ORDERED: APIXABAN 5 MG TAB PO SCH (21:00)
[2022-10-27] MEDS ORDERED: METOPROLOL TARTRATE 25 MG TAB PO SCH (21:00)
[2022-10-28] MEDS: LEVOTHYROXINE 112 MCG TAB PO SCH (06:11)
[2022-10-28] MEDS: APIXABAN 5 MG TAB PO SCH ×2 (08:21→20:51)
[2022-10-28] MEDS: PANTOPRAZOLE 40 MG TABLET PO SCH (08:22)
[2022-10-28] MEDS: DOCUSATE 100 MG CAP PO SCH ×2 (08:22→20:51)
[2022-10-28] MEDS: METOPROLOL TARTRATE 25 MG TAB PO SCH ×2 (08:22→20:51)
[2022-10-28] MEDS: HYDROcodone/APAP 5-325MG 1 EACH TAB PO PRN (12:03)
--- NOTE | 2022-10-28 12:09 | P.PN ---
Subjective Progress Note Date: 10/28/22 PROGRESS NOTE The patient is an 81-year-old female who recently underwent ORIF of her right lower extremity with a history of hypertension and hyperlipidemia who presented with atrial fibrillation of new onset. She is back in sinus mechanism today. She's feeling well. She denies any chest discomfort, dizziness or palpitations. She denies any nausea or vomiting. She had minimal troponin elevation most likely related to a type II myocardial infarction secondary to the atrial fibrillation and rapid ventricular response. Medications: Metoprolol 25 mg twice a day, Eliquis 5 mg twice a day PHYSICAL EXAMINATION: Blood pressure 117/70 heart rate 70 LUNGS: [Clear to auscultation] HEART: [Regular rate and rhythm, S1, S2. No S3. systolic ejection murmur] ABDOMEN: [Soft, nontender, no organomegaly] EXTREMETIES: [No edema] LAB: TSH 0.4 with free T4 1.59 IMPRESSION: 1. Paroxysmal atrial fibrillation, back in sinus mechanism 2. Status post recent ORIF 3. Troponin elevation most likely representing type 2 Myocardial infarction 4. History of hyperlipidemia PLAN: 1. review the echocardiogram 2. Increase physical activity 3. If she remains in sinus mechanism probable discharge home tomorrow 4. Depending on her progress further recommendations will be made. Objective - Vital Signs Vital signs: Vital Signs Temp 97.9 F 10/28/22 08:05 Pulse 80 10/28/22 08:05 Resp 18 10/28/22 08:05 BP 116/79 10/28/22 08:05 Pulse Ox 96 10/28/22 08:12 FiO2 Intake & Output 10/27/22 10/28/22 10/28/22 18:59 06:59 18:59 Intake Total 0 Output Total 500 700 250 Balance -500 -700 -250 Weight 58.967 kg Intake: Oral 0 Output: Urine 500 400 250 Post Void Residual 300 Other: Voiding Method Indwelling Catheter Bedpan Bedpan # Voids 1 - Labs CBC & Chem 7: 10/26/22 19:39 10/26/22 19:39
--- NOTE | 2022-10-28 13:51 | P.PN ---
Subjective Progress Note Date: 10/28/22 This is an 81-year-old female with medical history significant for thyroid disorder with partial thyroidectomy, gastroesophageal reflux disease, sleep apnea does not wear CPAP, orthopedic surgery history of right hip replacement in 2017 and also right total knee replacement. Patient was discharged to [facility] rehab from hospital yesterday and was found to have elevated heart rate 170s when she got there and was brought back to the hospital. Patient denies chest pain, denies palpitations, denies dizziness, denies lightheadedness. Denies shortness of breath. She has no history of atrial fibrillation. She was discharged on aspirin 81 mg twice a day. Patient was admitted to the hospital from 10/23/22 to 10/26/22 after sustaining a fall while at the gym which resulted in right displaced oblique fracture of the distal femur. She underwent surgical repair for this. She had issues with postoperative urine retention and had indwelling catheter placed. She was discharged from the hospital yesterday to subacute rehab. Today she is postoperative day #3. EKG on admission shows atrial fibrillation with heart rate of 169. Chest xray is negative. Hemoglobin is stable at 8.7. Sodium 135, glucose 138. She is found to have troponin elevation at 1.190, 1.210, and 1.020. TSH is 0.410, Free T4 within normal limits at 1.59. She is maintained on synthroid 112 mcg daily. She is admitted to the hospital with cardiology consultation for further evaluation. Has been started on cardizem gtt and also IV heparin. All other home medications resumed. She is also given a 2L fluid bolus in the EC. 10/28/2022 Patient is monitored on medical floor. She has converted to normal sinus rhythm and is currently on metoprolol 25 mg po BID and also has been started on eliquis for anticoagulation. Indwelling catheter has been removed and patient has no further issues with urinary retention. Today she remains afebrile, heart rate 80, blood pressure 116/79, 96% on room air. Echocardiogram is currently pending at this time. Physical therapy evaluation also pending. Patient does require insurance authorization to return to [facility] rehab facility. Discharge sunday as PT not available for eval today. Patient encourage to increased activity and sit up in chair. Review of Systems Constitutional: Denied any fatigue denied any fever. Cardio vascular: denied any chest pain, palpitations Gastrointestinal: denied any nausea, vomiting, diarrhea. Decreased appetite. Pulmonary: Denied any shortness of breath cough Neurologic denied any new focal deficits All inpatient medications were reviewed and appropriate changes in these medications as dictated in the interval history and assessment and plan. PHYSICAL EXAMINATION: GENERAL: The patient is alert and oriented x3, not in any acute distress. Well developed, well nourished. HEENT: Pupils are round and equally reacting to light. EOMI. No scleral icterus. No conjunctival pallor. Normocephalic, atraumatic. No pharyngeal erythema. No thyromegaly. CARDIOVASCULAR: S1 and S2 present. No murmurs, rubs, or gallops. Regular rate and rhythm PULMONARY: Chest is clear to auscultation, no wheezing or crackles. ABDOMEN: Soft, nontender, nondistended, normoactive bowel sounds. No palpable organomegaly. MUSCULOSKELETAL: Post surgical dressing intact to right thigh, right lower extremity edema. EXTREMITIES: No cyanosis, clubbing, or pedal edema. NEUROLOGICAL: Gross neurological examination did not reveal any focal deficits. SKIN: No rashes. Assessment and Plan Assessment New onset atrial fibrillation with rapid ventricular rate converted to normal sinus rhythm Troponin elevation, rule out ACS Oral thrush Postoperative day #4 surgical repair right femur fracture Postoperative urinary retention resolved IDC discontinued Postoperative anemia stable hemoglobin 8.7. Constipation History partial thyroidectomy maintained on synthroid Sleep apnea does not wear CPAP History GERD History orthopedic surgery Hyponatremia GI prophylaxis DVT prophylaxis Heparin IV Full Code Plan Started on eliquis Continue on metoprolol monitor heart rate Pending echocardiogram Add nystatin swish Possible D/C back to Sunday pending PT evaluation Increase activity level The impression and plan of care has been dictated by Grace Encarnacion, Nurse Practitioner as directed. Dr. Jaspreet MD I have performed a history and physical examination and medical decision making of this patient, discussed the same with the dictator, and agree with the dictators assessment and plan as written, documented as a scribe. Based on total visit time, I have performed more than 50% of this visit. Objective - Vital Signs Vital signs: Vital Signs Temp 97.9 F 10/28/22 08:05 Pulse 80 10/28/22 08:05 Resp 18 10/28/22 08:05 BP 116/79 10/28/22 08:05 Pulse Ox 96 10/28/22 08:12 FiO2 Intake & Output 10/27/22 10/28/22 10/28/22 18:59 06:59 18:59 Intake Total 0 Output Total 500 700 250 Balance -500 -700 -250 Weight 58.967 kg Intake: Oral 0 Output: Urine 500 400 250 Post Void Residual 300 Other: Voiding Method Indwelling Catheter Bedpan Bedpan # Voids 1 - Labs CBC & Chem 7: 10/26/22 19:39 10/26/22 19:39 Assessment and Plan Time with Patient: Less than 30
[2022-10-28] MEDS: ATORVASTATIN 20 MG TAB PO SCH (14:28)
[2022-10-28] MEDS: NYSTATIN 100,000 UNIT/ML SUSP 500,000 UNIT/5 ML CUP PO SCH ×3 (14:28→21:00)
[2022-10-28] MEDS: TAMSULOSIN 0.4 MG CAP.ER.24H PO SCH (17:37)
--- NOTE | 2022-10-28 18:12 | CA ---
Transthoracic Echo Report Name: Shruthi Kowalski Age: 81 Gender: F : 1940 Exam Date: 10/28/2022 09:46 Exam Location: [facility] Ht (in): 52 Wt (lb): 130 Ordering Physician: Darien Zarate MD Attending/Referring Phys: Handicapped Teacher Zunilda Centeno RDCS Procedure CPT: Indications: N STEMI, A. fib RVR Cardiac Hx: Technical Quality: Contrast 1: Total Dose (mL): Contrast 2: Total Dose (mL): MEASUREMENTS (Male / Female) Normal Values 2D ECHO LV Diastolic Diameter PLAX 4.4 cm 4.2 - 5.9 / 3.9 - 5.3 cm LV Systolic Diameter PLAX 3.3 cm IVS Diastolic Thickness 0.9 cm 0.6 - 1.0 / 0.6 - 0.9 cm LVPW Diastolic Thickness 1.1 cm 0.6 - 1.0 / 0.6 - 0.9 cm LV Relative Wall Thickness 0.5 RV Internal Dim ED PLAX 3.3 cm LA Systolic Diameter LX 4.1 cm 3.0 - 4.0 / 2.7 - 3.8 cm M-MODE Aortic Root Diameter MM 3.3 cm LA Systolic Diameter MM 4.0 cm LA Ao Ratio MM 1.2 MV E Point Septal Separation 1.1 cm AV Cusp Separation MM 1.6 cm DOPPLER MV Peak Velocity 122.2 cm/s MV Peak Gradient 6.0 mmHg MV Mean Velocity 63.1 cm/s MV Mean Gradient 1.9 mmHg MV Velocity Time Integral 30.9 cm MV Area PHT 3.0 cm??? Mitral E Point Velocity 91.1 cm/s Mitral A Point Velocity 72.2 cm/s Mitral E to A Ratio 1.3 MV Deceleration Time 199.7 ms TR Peak Velocity 261.2 cm/s TR Peak Gradient 27.3 mmHg Right Ventricular Systolic Press 31.0 mmHg FINDINGS Left Ventricle Mildly increased posterior wall thickness.left ventricular cavity size normal. Left ventricular ejection fraction is estimated at 55-60%. Right Ventricle Normal right ventricular size and function. Right ventricular systolic pressure within normal limits. Right Atrium Normal right atrial size. Left Atrium Mildly increased left atrial diameter. Mitral Valve Structurally normal mitral valve. Mild mitral regurgitation. Mild mitral annular calcification. Aortic Valve Trileaflet aortic valve. Mild aortic regurgitation. Aortic sclerosis Tricuspid Valve Structurally normal tricuspid valve. Mild tricuspid regurgitation. Pulmonic Valve Structurally normal pulmonic valve. Pericardium Normal pericardium. Aorta Normal size aortic root and proximal ascending aorta. CONCLUSIONS 1. Normal left ventricle size and systolic function 2. Mild mitral, aortic and tricuspid regurgitation. 3. No pericardial effusion Previewed by: Dr. Janine Coates MD (Electronically Signed) Final Date: 28 October 2022 18:10
[2022-10-28] MEDS: SENNOSIDES-DOCUSATE SODIUM 1 EACH TAB PO SCH (20:50)
[2022-10-29] MEDS: HYDROcodone/APAP 5-325MG 1 EACH TAB PO PRN ×3 (04:24→17:31)
[2022-10-29] MEDS: CALCIUM CARBONATE 500 MG CHEWABLE PO PRN (05:03)
[2022-10-29] MEDS: ONDANSETRON 4 MG/2 ML VIAL IVP PRN ×2 (05:03→11:04)
[2022-10-29] MEDS: LEVOTHYROXINE 112 MCG TAB PO SCH (06:02)
[2022-10-29 07:55] LABS: African American GFR (CKD) >90 (>60 ml/min/1.73 sqM); Anion Gap 4 mmol/L; Blood Urea Nitrogen 9 mg/dL (7-17); Calcium 7.9 mg/dL (8.4-10.2); Carbon Dioxide 24 mmol/L (22-30); Chloride 105 mmol/L (98-107); Glucose 102 mg/dL (74-99); Non-African American GFR(CKD) >90 (>60 ml/min/1.73 sqM); Potassium 3.5 mmol/L (3.5-5.1); Sodium 133 mmol/L (137-145)
[2022-10-29] MEDS: NYSTATIN 100,000 UNIT/ML SUSP 500,000 UNIT/5 ML CUP PO SCH ×4 (09:58→21:53)
[2022-10-29] MEDS: PANTOPRAZOLE 40 MG TABLET PO SCH (09:58)
[2022-10-29] MEDS: DOCUSATE 100 MG CAP PO SCH ×2 (09:58→21:53)
[2022-10-29] MEDS: METOPROLOL TARTRATE 25 MG TAB PO SCH ×2 (09:58→21:53)
[2022-10-29] MEDS: APIXABAN 5 MG TAB PO SCH ×2 (09:58→21:53)
[2022-10-29] MEDS: ATORVASTATIN 20 MG TAB PO SCH (09:59)
--- NOTE | 2022-10-29 11:37 | P.PN ---
Subjective Progress Note Date: 10/29/22 This is a pleasant 81-year-old female patient who follows in the office with Dr. Coates. She has a history of hypertension, hyperlipidemia and was recently admitted after sustaining a fracture to the right inter-prosthetic femoral shaft at which time she subsequently underwent open reduction and internal fixation of the right inter-prosthetic femoral shaft. She was transferred to [facility] for rehab and upon arrival there was noted to have an elevated heart rate in the 170s. She was subsequently transferred back to the emergency department here and found to be in atrial fibrillation with rapid ventricular response of new onset. She has no history of atrial fibrillation. She denies any symptoms at the time but was having significant amount of pain to the transfer. Chest x-ray on admission showed no acute pulmonary process. Laboratory values showed hemoglobin 8.7, sodium 135, potassium 4.1, BUN 13, creatinine 0.62, TSH 0.410 and a free T4 of 1.59. Troponins were elevated at 1.190, 1.21 and 1.02. She was initiated on Cardizem IV as well as IV heparin. She is currently maintaining sinus mechanism. She denies any complaints of chest discomfort, shortness of breath, orthopnea or PND. She denies any edema. Complains of surgical site pain. Denies any dizziness, lightheadedness or palpitations. 10/29/2022 Patient was seen and examined resting currently in bed. She is overall feeling well. Continues to have pain in her right leg. Echocardiogram with Doppler study showed a normal LV systolic function with mild MR, AR and TR. She is maintaining sinus mechanism and she is anticoagulated. Objective - Vital Signs Vital signs: Vital Signs Temp 97.9 F 10/29/22 07:54 Pulse 79 10/29/22 07:54 Resp 17 10/29/22 07:54 BP 106/60 10/29/22 07:54 Pulse Ox 97 10/29/22 07:54 FiO2 Intake & Output 10/28/22 10/29/22 10/29/22 18:59 06:59 18:59 Intake Total 500 Output Total 250 100 Balance -250 400 Weight 58 kg Intake: Oral 500 Output: Urine 250 100 Other: Voiding Method Bedpan Bedpan # Voids 1 # Bowel Movements 1 - Exam HEENT: Head is atraumatic, normocephalic. Pupils are equal, round. Sclerae anicteric. Conjunctivae are clear. Mucous membranes of the mouth are moist. Neck is supple. There is no elevated jugular venous pressure. No carotid bruit is heard. CHEST EXAMINATION: Clear to auscultation bilaterally. No wheezes rales or rhonchi. Respirations even and nonlabored. HEART EXAMINATION: Heart regular, positive S1 and S2. No S3. No S4. Systolic murmur. ABDOMEN: Soft, nontender. Bowel sounds are heard. No organomegaly noted. EXTREMITIES: 2+ peripheral pulses with no evidence of peripheral edema and no calf tenderness noted. NEUROLOGIC EXAMINATION: Patient is awake, alert and oriented x3. - Labs CBC & Chem 7: 10/26/22 19:39 10/29/22 07:26 Labs: Abnormal Lab Results - Last 24 Hours (Table) 10/29/22 Range/Units 07:26 Sodium 133 L (137-145) mmol/L Creatinine 0.48 L (0.52-1.04) mg/dL Glucose 102 H (74-99) mg/dL Calcium 7.9 L (8.4-10.2) mg/dL Assessment and Plan Assessment: 1 paroxysmal atrial fibrillation with rapid ventricular response, currently maintaining sinus mechanism, Chads vasc score of at least 4 #2 recent right inter-prosthetic femoral shaft fracture status post open reduction and internal fixation 3 hypertension #4 hyperlipidemia Plan: From cardiology's perspective vacations were reviewed and will continue the same. Patient may be discharged back to rehab when cleared by primary. She'll follow-up in the office after discharge. MEMBERSHIP DIRECTOR note has been reviewed, I agree with a documented findings and plan of care. Patient was seen and examined.
--- NOTE | 2022-10-29 13:21 | P.PN ---
Subjective Progress Note Date: 10/29/22 This is an 81-year-old female with medical history significant for thyroid disorder with partial thyroidectomy, gastroesophageal reflux disease, sleep apnea does not wear CPAP, orthopedic surgery history of right hip replacement in 2017 and also right total knee replacement. Patient was discharged to [facility] rehab from hospital yesterday and was found to have elevated heart rate 170s when she got there and was brought back to the hospital. Patient denies chest pain, denies palpitations, denies dizziness, denies lightheadedness. Denies shortness of breath. She has no history of atrial fibrillation. She was discharged on aspirin 81 mg twice a day. Patient was admitted to the hospital from 10/23/22 to 10/26/22 after sustaining a fall while at the gym which resulted in right displaced oblique fracture of the distal femur. She underwent surgical repair for this. She had issues with postoperative urine retention and had indwelling catheter placed. She was discharged from the hospital yesterday to subacute rehab. Today she is postoperative day #3. EKG on admission shows atrial fibrillation with heart rate of 169. Chest xray is negative. Hemoglobin is stable at 8.7. Sodium 135, glucose 138. She is found to have troponin elevation at 1.190, 1.210, and 1.020. TSH is 0.410, Free T4 within normal limits at 1.59. She is maintained on synthroid 112 mcg daily. She is admitted to the hospital with cardiology consultation for further evaluation. Has been started on cardizem gtt and also IV heparin. All other home medications resumed. She is also given a 2L fluid bolus in the EC. 10/28/2022 Patient is monitored on medical floor. She has converted to normal sinus rhythm and is currently on metoprolol 25 mg po BID and also has been started on eliquis for anticoagulation. Indwelling catheter has been removed and patient has no further issues with urinary retention. Today she remains afebrile, heart rate 80, blood pressure 116/79, 96% on room air. Echocardiogram is currently pending at this time. Physical therapy evaluation also pending. Patient does require insurance authorization to return to [facility] rehab facility. Discharge sunday as PT not available for eval today. Patient encourage to increased activity and sit up in chair. 10/29/2022 Patient evaluated on medical floor today. Had large BM. Denies chest pain, no palpitations. Has maintained sinus mechanism, heart rate in the 70s. Echocardiogram reveals normal LV function mild mitral, aortic, and tricuspid regurgitation. She does continue with some right knee pain and stiffness have asked orthopedics to evaluate further recommendations pending. Otherwise she will be evaluated by physical therapy tomorrow. Encouraged patient to be up in chairs for meals and increase activity level. Communicated this with staff. Sodium 133 today patient has poor oral intake has been started on nystatin swish, will gently hydrate patient with normal saline and also add ensure with meals. Blood pressure 106/60. Review of Systems Constitutional: Denied any fatigue denied any fever. Cardio vascular: denied any chest pain, palpitations Gastrointestinal: denied any nausea, vomiting, diarrhea. Decreased appetite. Pulmonary: Denied any shortness of breath cough Neurologic denied any new focal deficits All inpatient medications were reviewed and appropriate changes in these medications as dictated in the interval history and assessment and plan. PHYSICAL EXAMINATION: GENERAL: The patient is alert and oriented x3, not in any acute distress. Well developed, well nourished. HEENT: Pupils are round and equally reacting to light. EOMI. No scleral icterus. No conjunctival pallor. Normocephalic, atraumatic. No pharyngeal erythema. No thyromegaly. CARDIOVASCULAR: S1 and S2 present. No murmurs, rubs, or gallops. Regular rate and rhythm PULMONARY: Chest is clear to auscultation, no wheezing or crackles. ABDOMEN: Soft, nontender, nondistended, normoactive bowel sounds. No palpable organomegaly. MUSCULOSKELETAL: Post surgical dressing intact to right thigh, right lower extremity edema. EXTREMITIES: No cyanosis, clubbing, or pedal edema. Right knee pain and leg stiffness. NEUROLOGICAL: Gross neurological examination did not reveal any focal deficits. Generalized weakness. SKIN: No rashes. Assessment and Plan Assessment New onset atrial fibrillation with rapid ventricular rate converted to normal sinus rhythm Troponin elevation most likely type II NM secondary to atrial fibrillation. Hyponatremia hypovolemic poor oral intake patient will be gently hydrated. Oral thrush Postoperative day #5 surgical repair right femur fracture Postoperative urinary retention resolved IDC discontinued Postoperative anemia stable hemoglobin 8.7. Constipation resolved History partial thyroidectomy maintained on synthroid Sleep apnea does not wear CPAP History GERD History orthopedic surgery GI prophylaxis Protonix DVT prophylaxis Eliquis Full Code Plan Continue nystatin swish Ensure added and patient will be gently hydrated overnight Repeat sodium level tomorrow Increase activity level and up in chairs for meals Continue pain management, bowel regimen Orthopedics consultation Physical therapy evaluation tomorrow Possible D/C back to [facility] in the next 24 to 48 hours The impression and plan of care has been dictated by Grace Encarnacion, Nurse Practitioner as directed. Dr. Jaspreet MD I have performed a history and physical examination and medical decision making of this patient, discussed the same with the dictator, and agree with the dictators assessment and plan as written, documented as a scribe. Based on total visit time, I have performed more than 50% of this visit. Objective - Vital Signs Vital signs: Vital Signs Temp 97.9 F 10/29/22 07:54 Pulse 79 10/29/22 07:54 Resp 17 10/29/22 07:54 BP 106/60 10/29/22 07:54 Pulse Ox 97 10/29/22 07:54 FiO2 Intake & Output 10/28/22 10/29/22 10/29/22 18:59 06:59 18:59 Intake Total 500 Output Total 250 100 Balance -250 400 Weight 58 kg Intake: Oral 500 Output: Urine 250 100 Other: Voiding Method Bedpan Bedpan # Voids 1 # Bowel Movements 1 - Labs CBC & Chem 7: 10/26/22 19:39 10/29/22 07:26 Labs: Abnormal Lab Results - Last 24 Hours (Table) 10/29/22 Range/Units 07:26 Sodium 133 L (137-145) mmol/L Creatinine 0.48 L (0.52-1.04) mg/dL Glucose 102 H (74-99) mg/dL Calcium 7.9 L (8.4-10.2) mg/dL Assessment and Plan Time with Patient: Less than 30
--- NOTE | 2022-10-29 13:39 | XR ---
EXAMINATION TYPE: XR femur RT, XR knee limited RT DATE OF EXAM: 10/29/2022 1:25 PM INDICATION: Patient age:Female; 81 years old; Reason for study: post op; COMPARISON: Pre-op surgical 10/23/2022 TECHNIQUE: Frontal and lateral views of the right femur and right knee FINDINGS: Postsurgical changes to the right lower extremity with right total hip arthroplasty, right femoral fixation plate with cerclage wires and right total knee arthroplasty. Hardware appears intac t. There is no evidence for new acute fracture. Foci of gas posterior to the femur likely postsurgica l related. IMPRESSION: No new acute fracture, post surgical changes with hardware intact.
[2022-10-29] MEDS: TAMSULOSIN 0.4 MG CAP.ER.24H PO SCH (17:32)
--- NOTE | 2022-10-29 21:15 | P.CNOR ---
History of Present Illness - HPI Consult date: 10/29/22 Consult reason: joint pain History of present illness: Patient is seen at bedside today.She is S/P ORIF periprosthetic fracture right femur 5 days ago. She was re-admitted yesterday with afib apparently. She also h ad complaints of right leg/knee pain as expected. She denies new complaints today including numbness, calf pain, fevers, chills, chest pain or other.Sheis resting comfortably during interview today Review of Systems All systems: negative Constitutional: Denies chills, Denies fever Eyes: denies blurred vision, denies pain Ears, nose, mouth and throat: Denies headache, Denies sore throat Cardiovascular: Denies chest pain, Denies shortness of breath Respiratory: Denies cough Gastrointestinal: Denies abdominal pain, Denies diarrhea, Denies nausea, Denies vomiting Genitourinary: Denies dysuria, Denies hematuria Musculoskeletal: Denies myalgias Integumentary: Denies pruritus, Denies rash Neurological: Denies numbness, Denies weakness Psychiatric: Denies anxiety, Denies depression Endocrine: Denies fatigue, Denies weight change Past Medical History Past Medical History: Chest Pain / Angina, GERD/Reflux, Sleep Apnea/CPAP/BIPAP, Thyroid Disorder Additional Past Medical History / Comment(s): "low hemoglobin" ,sciatica, does not use cpap,urinary leakage History of Any Multi-Drug Resistant Organisms: None Reported Past Surgical History: Joint Replacement, Orthopedic Surgery Additional Past Surgical History / Comment(s): thyroid surgery, rt knee arthroscopic x 2 and replacement,bladder susp,bladder procedure,pain clinic proc Past Anesthesia/Blood Transfusion Reactions: Previous Problems w/ Anesthesia, Postoperative Nausea & Vomiting (PONV) Additional Past Anesthesia/Blood Transfusion Reaction / Comm: took long time to come out Past Psychological History: No Psychological Hx Reported Smoking Status: Never smoker Past Alcohol Use History: None Reported Past Drug Use History: None Reported - Past Family History Father History Unknown: Yes Family Medical History: No Reported History Mother History Unknown: Yes Family Medical History: No Reported History Additional Family Medical History / Comment(s): "kidney problems" Medications and Allergies Home Medications Medication Instructions Recorded Confirmed Type Omeprazole [PriLOSEC] 20 mg PO DAILY 05/29/14 10/26/22 History Levothyroxine Sodium [Synthroid] 112 mcg PO DAILY 10/23/22 10/26/22 History Aspirin 81 mg PO BID 30 Days #60 tab 10/26/22 10/26/22 Rx Docusate [Colace] 100 mg PO BID #60 capsule 10/26/22 10/26/22 Rx HYDROcodone/APAP 5-325MG [[place] 1 - 2 tab PO Q6HR PRN 7 Days #32 10/26/22 10/26/22 Rx 5-325] tab Sennosides-Docusate Sodium 2 tab PO HS 10/26/22 10/26/22 History [Senokot-S] Tamsulosin [Flomax] 0.4 mg PO PC-SUPPER cap 10/26/22 10/26/22 Rx Allergies Allergy/AdvReac Type Severity Reaction Status Date / Time promethazine Allergy Nausea & Verified 10/26/22 20:19 Vomiting & Diarrhea tramadol [From Ultram] AdvReac severe Verified 10/26/22 20:19 headache and n/v Physical Examination Inspection reveal benign surgical wounds. There is no active bleeding or drainage. Neurovascular status is intact throughout the lower extremity with motor and sensation fully intact. Calf is soft and nontender. 2+ dorsalis pedis pulse and less than 2 second cap refill is present. Results hardware stable, no new fracture seen - Labs Labs: Abnormal Lab Results - Last 24 Hours (Table) 10/29/22 Range/Units 07:26 Sodium 133 L (137-145) mmol/L Creatinine 0.48 L (0.52-1.04) mg/dL Glucose 102 H (74-99) mg/dL Calcium 7.9 L (8.4-10.2) mg/dL H & H 10/26/22 Range/Units 19:39 Hgb 8.7 L (11.4-16.0) gm/dL Hct 25.4 L (34.0-46.0) % Coagulation 10/26/22 Range/Units 19:39 INR 1.1 (<1.2) Result Diagrams: 10/26/22 19:39 10/29/22 07:26 - Diagnostic results Knee x-ray: report reviewed, image reviewed (stable hardware, no new fracture) Assessment and Plan (1) Femur fracture, right Narrative/Plan: She may continue with routine post op orthopedic protocol including pain management, PT, DVT prophylaxis, med management. She can transfer from ortho standpoint when okay with IM Current Visit: No Status: Acute Priority: Medium Code(s): S72.91XA - UNSP FRACTURE OF RIGHT FEMUR, INIT FOR CLOS FX SNOMED Code(s): 54162312 Time with Patient: Less than 30
[2022-10-29] MEDS: SODIUM CHLORIDE 0.9% 1,000 ML IV SCH (21:48)
[2022-10-29] MEDS: SENNOSIDES-DOCUSATE SODIUM 1 EACH TAB PO SCH (21:53)
[2022-10-30] MEDS: HYDROcodone/APAP 5-325MG 1 EACH TAB PO PRN ×3 (02:43→16:09)
[2022-10-30] MEDS: CALCIUM CARBONATE 500 MG CHEWABLE PO PRN (02:43)
[2022-10-30] MEDS: LEVOTHYROXINE 112 MCG TAB PO SCH (05:48)
[2022-10-30] MEDS: PANTOPRAZOLE 40 MG TABLET PO SCH (07:45)
[2022-10-30] MEDS: NYSTATIN 100,000 UNIT/ML SUSP 500,000 UNIT/5 ML CUP PO SCH ×4 (07:45→21:00)
[2022-10-30] MEDS: METOPROLOL TARTRATE 25 MG TAB PO SCH ×2 (07:45→21:00)
[2022-10-30] MEDS: APIXABAN 5 MG TAB PO SCH ×2 (07:45→21:00)
[2022-10-30] MEDS: ATORVASTATIN 20 MG TAB PO SCH (07:45)
[2022-10-30] MEDS: DOCUSATE 100 MG CAP PO SCH ×2 (07:46→21:00)
--- NOTE | 2022-10-30 07:47 | P.PN ---
Subjective Progress Note Date: 10/30/22 Patient is doing well this morning. She has some discomfort in her right leg and knee, particularly when bending the knee and placing the leg in a dependent position. She is otherwise comfortable. She has no complaints of chest pain, palpitations, or shortness of breath. Objective - Vital Signs Vital signs: Vital Signs Temp 98.4 F 10/30/22 07:40 Pulse 84 10/30/22 07:40 Resp 17 10/30/22 07:40 BP 132/78 10/30/22 07:40 Pulse Ox 96 10/30/22 07:40 FiO2 Intake & Output 10/29/22 10/30/22 10/30/22 18:59 06:59 18:59 Intake Total 496 Output Total 800 Balance -304 Weight 58 kg Intake: Oral 496 Output: Urine 800 Other: Voiding Method Toilet # Voids 4 1 - Exam The patient is sitting up in a chair at bedside. She is alert and able to answer questions. She is in no apparent distress. Right lower extremity: There is a clean-appearing dressing over the lateral aspect of the femur. There is diffuse swelling and ecchymosis throughout the thigh and knee. The thigh is soft and compressible. Femoral nerve function is intact. Distally motor and sensory function are intact in the foot. - Labs CBC & Chem 7: 10/26/22 19:39 10/29/22 07:26 Labs: Abnormal Lab Results - Last 24 Hours (Table) 10/29/22 Range/Units 07:26 Sodium 133 L (137-145) mmol/L Creatinine 0.48 L (0.52-1.04) mg/dL Glucose 102 H (74-99) mg/dL Calcium 7.9 L (8.4-10.2) mg/dL Assessment and Plan Assessment: Postoperative day #6 status post open reduction internal fixation periprosthetic right femur fracture Postoperative atrial fibrillation requiring readmission to internal medicine Plan: Overall the patient is doing well from an orthopedic standpoint. Her x-rays from yesterday the femur and the knee show a well reduced femur fracture with intact hardware. I do not see any interval changes or other fractures. I had a long discussion with the patient on expectations following this injury and surgery. We discussed that the recovery is going to be much longer and harder than her primary hip and knee replacements. She seems to understand this. I would encourage both mobilization out of the bed into a chair and mobilization with physical therapy. I would also encourage gentle range of motion with therapy of her right knee. She should continue toe-touch weightbearing restrictions on the right leg. Leave her surgical dressing in place. She is okay to discharge from an orthopedic standpoint when she is cleared medically by internal medicine and cardiology. She should follow-up in the office with me in 1 week.
[2022-10-30] MEDS: SODIUM CHLORIDE 0.9% 1,000 ML IV SCH (08:02)
--- NOTE | 2022-10-30 15:11 | P.DS ---
Providers Date of admission: 10/26/22 20:37 Attending physician: Je Vogel Consults: 10/26/22 20:37 Consult Physician Urgent Consulting Provider: Clinton Fletcher Consult Reason/Comments: Rapid A. fib, NSTEMI Do you want consulting provider notified?: Already Contacted 10/29/22 09:41 Consult Physician Routine Consulting Provider: Roman Camara Consult Reason/Comments: post op day 5, right knee pain and stiffness Do you want consulting provider notified?: Yes Primary care physician: Nickie Gaston [facility] Course: Final Diagnosis New onset atrial fibrillation with rapid ventricular rate converted to normal sinus rhythm Troponin elevation most likely type II NM secondary to atrial fibrillation. Hyponatremia hypovolemic improved Oral thrush improved Postoperative day #6 surgical repair right femur fracture Postoperative urinary retention resolved IDC discontinued Postoperative anemia stable hemoglobin 8.7. Constipation resolved History partial thyroidectomy maintained on synthroid Sleep apnea does not wear CPAP History GERD History orthopedic surgery Full Code Discharge Disposition Patient is stable for discharge to [facility]. She has converted to normal sinus rhythm and is anticoagulated with eliquis. She will continue nystatin swish and swallow for 2 additional days recommend to increase oral intake. Continue with ensure supplement three times a day with meals. Thigh high compression stocking to right leg. Patient to follow up with orthopedics on discharge as previous recommended. Follow up with Primary care in 1 to 2 days and also Follow up with cardiology in 1 to 2 weeks. Continue bowel regimen daily. Hospital Course This is an 81-year-old female who is postoperative day #6 surgical repair for right femur fracture who was discharged from the hospital on October 26 to [facility] rehab after being hospitalized for a fall with trauma which resulted in right displaced oblique fracture of distal femur. She underwent surgical repair for this and was discharged to rehab. She presented to the rehab facility and was found to have heart rate in the 150s and EKG from EMS shows patient to be in atrial fibrillation with rapid ventricular rate, new onset. [facility] and admitted to the hospital and evaluated by cardiology. She was initially started on IV cardizem and IV heparin which patient did convert to normal sinus rhythm. Heart rate has remained stable in the 60s now. She has been started on eliquis for anticoagulation and also has been started on metoprolol for rate control. Echocardiogram reveals normal LV size and systolic function. There is mild mitral, aortic, and tricuspid regurgitation. She has had poor oral intake and had evidence of oral thrush which is being treated successfully with nystatin swish and swallow QID and recommend to continue for 2 more days. She has been started on ensure with meals. She reports dry mouth however has increased her oral intake. She has been hydrated with IV fluids also as she was a bit hyponatremic 133 which has improved to 138. Patient was evaluated by cardiology and also orthopedics on admission. Her surgical hardware is in good position. She has been evaluated by physical therapy and recommended to return to [facility] for subacute rehab. Post surgical pain rating about a 3/10 while she is sitting mostly described as an ache in her outter right thigh she is receiving oral norco for this. She does report increased pain 15/10 with ambulation and while working with PT. She should continue with pain control while at rehab and also continue on bowel regimen. She did require suppository to illicit bowel movement this hospital stay. 10/30/2022 Patient is evaluated today sitting up in the chair. She has had a small BM and abdomen is soft and nontender with normoactive bowel sounds recommend to continue current bowel regimen on discharge. Patient denies chest pain, denies shortness of breath. She denies palpitations, denies nausea vomiting and denies diarrhea. Pain is somewhat controlled with oral norco tablets and does increased with ambulation. She has gotten up with physical therapy today and has been up in the chair sitting. She continues with mild edema to the right leg. Her lungs are clear, S1 S2 auscultated abdomen is soft and nontender. She is alert x 3 focal neurological exam is negative. +2 peripheral pulses. Surgical dressing is intact. She has been cleared by cardiology for discharge. Orthopedics has also evaluated the patient and will follow up with her on discharge. She is a labs showing a sodium of 138, BUN of 9, creatinine 0.48, SH 0.410, free T4 1 0.59, hgb 8.7. She is afebrile, heart rate 80, blood pressure 127/74, 98% room air. Total time taken in discharge planning greater than 35 minutes. Please see medication reconciliation for a list of current medication. Thank you for allowing us to participate in the care of this patient. The impression and plan of care has been dictated by Grace Encarnacion, Nurse Practitioner as directed. Dr. Jaspreet MD I have performed a history and physical examination and medical decision making of this patient, discussed the same with the dictator, and agree with the dictators assessment and plan as written, documented as a scribe. Based on total visit time, I have performed more than 50% of this visit. Patient Condition at Discharge: Stable Plan - Discharge Summary Discharge Rx Participant: No New Discharge Prescriptions: New Apixaban [Eliquis] 5 mg PO BID tab Atorvastatin [Lipitor] 20 mg PO DAILY tab Metoprolol Tartrate [Lopressor] 25 mg PO BID tab Nystatin 100,000 Unit/ml Susp [Mycostatin Oral Susp] 500,000 unit PO QID 2 Days ml Calcium Carbonate [Tums] 500 mg PO QID PRN tab PRN Reason: Heartburn bisacodyL [Dulcolax] 10 mg RECTAL DAILY PRN suppositor PRN Reason: Constipation Acetaminophen Tab [Tylenol] 650 mg PO Q6HR PRN tab PRN Reason: Mild Pain Or Fever > 100.5 Continue Omeprazole [PriLOSEC] 20 mg PO DAILY Levothyroxine Sodium [Synthroid] 112 mcg PO DAILY Docusate [Colace] 100 mg PO BID #60 capsule Tamsulosin [Flomax] 0.4 mg PO PC-SUPPER cap Sennosides-Docusate Sodium [Senokot-S] 2 tab PO HS HYDROcodone/APAP 5-325MG [[place] 5-325] 1 - 2 tab PO Q6HR PRN #2 tab PRN Reason: Pain Discontinued Aspirin 81 mg PO BID 30 Days #60 tab Discharge Medication List Omeprazole [PriLOSEC] 20 mg PO DAILY 05/29/14 [History] Levothyroxine Sodium [Synthroid] 112 mcg PO DAILY 10/23/22 [History] Docusate [Colace] 100 mg PO BID #60 capsule 10/26/22 [Rx] Sennosides-Docusate Sodium [Senokot-S] 2 tab PO HS 10/26/22 [History] Tamsulosin [Flomax] 0.4 mg PO PC-SUPPER cap 10/26/22 [Rx] Acetaminophen Tab [Tylenol] 650 mg PO Q6HR PRN tab 10/30/22 [Rx] Apixaban [Eliquis] 5 mg PO BID tab 10/30/22 [Rx] Atorvastatin [Lipitor] 20 mg PO DAILY tab 10/30/22 [Rx] Calcium Carbonate [Tums] 500 mg PO QID PRN tab 10/30/22 [Rx] HYDROcodone/APAP 5-325MG [[place] 5-325] 1 - 2 tab PO Q6HR PRN #2 tab 10/30/22 [Rx] Metoprolol Tartrate [Lopressor] 25 mg PO BID tab 10/30/22 [Rx] Nystatin 100,000 Unit/ml Susp [Mycostatin Oral Susp] 500,000 unit PO QID 2 Days ml 10/30/22 [Rx] bisacodyL [Dulcolax] 10 mg RECTAL DAILY PRN suppositor 10/30/22 [Rx] Follow up Appointment(s)/Referral(s): Janine Coates MD [STAFF PHYSICIAN] - 2 Weeks Nickie De Anda III, MD [Primary Care Provider] - 1-2 days Roman Camara MD [Medical Doctor] - 1 Week Ambulatory/Diagnostic Orders: Basic Metabolic Panel [LAB.AMB] Time Frame: 3 Days, Location: None Selected Complete Blood Count w/diff [LAB.AMB] Time Frame: 3 Days, Location: None Selected Activity/Diet/Wound Care/Special Instructions: Continue with bowel regimen Continue ensure three times a day patient likes chocolate Continue with nystatin our swish and swallow for 2 more days Patient can use thigh high compression on right leg Discharge Disposition: TRANSFER TO SNF/ECF
[2022-10-30] MEDS: TAMSULOSIN 0.4 MG CAP.ER.24H PO SCH (17:24)
[2022-10-30 19:31] VITALS: RESP 16
[2022-10-30] MEDS: SENNOSIDES-DOCUSATE SODIUM 1 EACH TAB PO SCH (21:00)
[2022-10-31] MEDS: SODIUM CHLORIDE 0.9% 1,000 ML IV SCH (06:33)
[2022-10-31] MEDS: LEVOTHYROXINE 112 MCG TAB PO SCH (06:35)
[2022-10-31] MEDS ORDERED: ONDANSETRON 4 MG TAB PO PRN (07:50)
[2022-10-31] MEDS: PANTOPRAZOLE 40 MG TABLET PO SCH (07:57)
[2022-10-31] MEDS: DOCUSATE 100 MG CAP PO SCH (07:57)
[2022-10-31] MEDS: NYSTATIN 100,000 UNIT/ML SUSP 500,000 UNIT/5 ML CUP PO SCH ×2 (07:57→12:52)
[2022-10-31] MEDS: APIXABAN 5 MG TAB PO SCH (07:58)
[2022-10-31] MEDS: HYDROcodone/APAP 5-325MG 1 EACH TAB PO PRN ×2 (07:58→14:27)
[2022-10-31] MEDS: METOPROLOL TARTRATE 25 MG TAB PO SCH (07:58)
[2022-10-31] MEDS: ATORVASTATIN 20 MG TAB PO SCH (07:58)
--- NOTE | 2022-10-31 09:53 | P.PN ---
Subjective Progress Note Date: 10/31/22 The patient continues to have pain as expected in her thigh. She also has nausea this morning. No other complaints. Objective - Vital Signs Vital signs: Vital Signs Temp 98.0 F 10/31/22 07:23 Pulse 92 10/31/22 07:23 Resp 16 10/31/22 07:23 BP 120/64 10/31/22 07:23 Pulse Ox 99 10/31/22 07:23 FiO2 Intake & Output 10/30/22 10/31/22 10/31/22 18:59 06:59 18:59 Weight 57.2 kg Other: Voiding Method Toilet # Voids 1 6 # Bowel Movements 1 - Exam The patient is resting comfortably in bed. Her right thigh is soft and compressible. Her dressing is clean and intact. - Labs CBC & Chem 7: 10/26/22 19:39 10/30/22 05:26 Assessment and Plan Plan: Continue treatment as outlined in prior note. The patient should follow up 1 week after discharge and is ok to discharge when medically stable.
[2022-10-31 12:21] VITALS: BMI 25.4
[2022-10-31 13:58] VITALS: BP 96/63; PULSE 80; TEMP 98.6
== END 2022-10-31 15:00 | DRG 281 ==
LOC: EC 19:14 → 3SCARD 20:37 → 4SSUR 10-28 15:03
PROVIDERS: ADMIT Internal Medicine; ATTEND Internal Medicine
DX: I48.0 Paroxysmal atrial fibrillation (principal); I21.A1 Myocardial infarction type 2; B37.0 Candidal stomatitis; E87.1 Hypo-osmolality and hyponatremia; I08.3 Combined rheumatic disorders of mitral, aortic and tricuspid valves; I10 Essential (primary) hypertension; E86.1 Hypovolemia; E78.5 Hyperlipidemia, unspecified; D64.9 Anemia, unspecified; S72.401D Unspecified fracture of lower end of right femur, subsequent encounter for closed fracture with routine healing; W19.XXXD Unspecified fall, subsequent encounter; Z79.82 Long term (current) use of aspirin; Z79.890 Hormone replacement therapy; Z79.899 Other long term (current) drug therapy; E89.0 Postprocedural hypothyroidism; M54.30 Sciatica, unspecified side; G47.30 Sleep apnea, unspecified; R33.8 Other retention of urine; Z96.641 Presence of right artificial hip joint; Z96.651 Presence of right artificial knee joint; Z20.822 Contact with and (suspected) exposure to COVID-19
CPT/HCPCS: 36415; 71046; 80048; 80053; 83036; 83735; 84295; 84439; 84443; 84484; 85025; 85610; 85730; 87635; 93005; 93306; 94760

== ENCOUNTER → 2023-08-15 | Outpatient (CLI) | payer MEDICARE | END | disposition home or self-care (01) | LOC: LABWHC1 12:48 | PROVIDERS: ATTEND Orthopaedic Surgery | DX: M25.561 Pain in right knee (principal); M79.651 Pain in right thigh; M97.01XD Periprosthetic fracture around internal prosthetic right hip joint, subsequent encounter; T84.022D Instability of internal right knee prosthesis, subsequent encounter; Z96.651 Presence of right artificial knee joint; Z48.89 Encounter for other specified surgical aftercare; Y82.9 Unspecified medical devices associated with adverse incidents | CPT/HCPCS: 36415; 85379; 85652; 86140 ==

== ENCOUNTER → 2023-08-23 | Outpatient (CLI) | payer MEDICARE ==
--- NOTE | 2023-08-23 20:46 | NM ---
EXAMINATION TYPE: NM bone 3 phase DATE OF EXAM: 08/23/2023 COMPARISON: Radiograph 10/29/2022 CLINICAL INDICATION: Female, 82 years old with history of M97.01XD PERIPROSTH FRACTURE AROUND INTERNA L PROSTH R HIP JT; patient with right knee pain for 10 years, worsening since the end of last year. P atient with fall and of last year and femur fracture. Right knee replacement 10 years ago. Right hip replacement 6 years ago. TECHNIQUE: Triple phase bone scintigraphy was performed following the injection of 25.2 mCi Tc 99m MD P. Immediate images and 5.25 hours post injection images acquired. Imaging centered at the pelvis an d both knees. FINDINGS: Flow images are centered at the knee. Slight hyperemia lateral aspect of the right knee. Pool images show photopenia at the right knee compatible with underlying joint prosthesis. There is c orresponding increased activity laterally at the distal right femur. Delayed images show photopenia related to right total hip arthroplasty. There is mild increased activ ity along the lateral femoral cortex likely due to patient's hardware. Increased tracer activity also along the lateral aspect of the distal femur and lateral margin of the proximal tibia. IMPRESSION: 1. Photopenia related to the patient's right hip total arthroplasty as well as right knee total arthr oplasty. 2. Three-phase activity along the lateral margin of the distal right femur adjacent to the femoral co mponent of the knee prosthesis. Recommend radiograph correlation to exclude any signs of loosening or infection here. 3. Subtle delayed activity along the lateral cortex of the femur likely some ongoing bony remodeling at the site of patient's fixation plate.
== END | disposition home or self-care (01) ==
LOC: RADNMMAIN 07:28
PROVIDERS: ATTEND Orthopaedic Surgery
DX: Z48.89 Encounter for other specified surgical aftercare (principal); M97.01XD Periprosthetic fracture around internal prosthetic right hip joint, subsequent encounter; T84.022D Instability of internal right knee prosthesis, subsequent encounter; Z96.651 Presence of right artificial knee joint; Z96.653 Presence of artificial knee joint, bilateral; Y79.2 Prosthetic and other implants, materials and accessory orthopedic devices associated with adverse incidents
CPT/HCPCS: 78315; A9503

== ENCOUNTER → 2023-12-05 | Outpatient (CLI) | payer MEDICARE ==
--- NOTE | 2023-12-05 19:47 | BD ---
EXAMINATION TYPE: Axial Bone Density DATE OF EXAM: 12/05/2023 CLINICAL HISTORY: 83 years old Female. ICD-10 CODE: M80.052D AGE-REL OSTEOPOR W CRNT Height: 59" Weight: 126.3lbs FRAX RISK QUESTIONS: Alcohol (3 or more units per day): No Family History (Parent hip fracture): Unknown Glucocorticoids (More than 3mos): No (Ex: prednisone, prednisolone, methylprednisolone, dexamethasone, and hydrocortisone). History of Fracture in Adulthood: Right femur 2021 Secondary Osteoporosis: 1. Type 1 Diabetes: No 2. Hyperthyroidism: No 3. Menopause before 45: No 4. Malnutrition: No 5. Chronic liver disease: No Rheumatoid Arthritis: No Current Tobacco Use: No RISK FACTORS HISTORY OF: Hip Fracture (Right/Left): No Spine Fracture: No History of Wrist Fracture: No Surgery to Spine/Hip(right/left)/Wrist (right/left): Right hip replacement When: 6 years ago MEDICATIONS: Thyroid Medications: Yes Which medication: Levothyroxine How Lon-30 years Osteoporosis Medications: No EXAM MEASUREMENTS: Bone mineral densitometry was performed using the [employer] System. Bone mineral density as measured about the Lumbar spine is: ----- L1-L4(G/cm2): 0.912 T Score Values are as follows: ----- L1: -3.2 ----- L2: -3.5 ----- L3: -2.5 ----- L4: -0.4 ----- L1-L4: -2.2 Z Score Values are as follows: ----- L1: -1.0 ----- L2: -1.3 ----- L3: -0.4 ----- L4: 1.8 ----- L1-L4: -0.1 Bone mineral density has: decreased -6.5% since study of: 08/13/2020 Bone mineral density about the L hip (g/cm2): 0.743 T Score values are as follows: -----L Neck: -1.9 -----L Total: -2.1 Z Score values are as follows: -----L Neck: 0.6 -----L Total: 0.3 Bone mineral density has: decreased -8.7% since study of: 08/13/2020 FRAX%s: The graph provided illustrates a 22.6% chance for a major osteoporotic fx and a 6.4% chance f or the hips probability for fx in 10 years time. IMPRESSION: Osteopenia (T Score between -2.5 and -1). There is slightly increased risk of fracture and the patient may be considered for treatment. Re-Screen 2-5 years. NOTE: T-SCORE=SD OF THE YOUNG ADULT MEAN.
--- NOTE | 2023-12-06 09:04 | MM ---
Reason for Exam: Screening (asymptomatic). Last mammogram was performed 1 year(s) and 8 month(s) ago. Patient History: Menarche at age 13. First Full-Term at age 20. Postmenopausal. Patient has history of breast feeding. Patient used Estrogen for 2 years. Patient used Progesterone for 2 years. 1989, Cyst Aspiration on the Left side. 1979, Excisional Biopsy on the Right side. Risk Values: Courtney 5 year model risk: 1.3%. NCI Lifetime model risk: 1.5%. Prior Study Comparison: 02/09/2016 Bilateral Screening Mammogram, [facility]. 09/23/2018 Bilateral Screening Mammogram, [facility]. 03/14/2022 Bilateral Diagnostic Mammogram, [facility]. Tissue Density: The breast tissue is heterogeneously dense. This may lower the sensitivity of mammography. Findings: Analyzed By CAD. There is no suspicious group of microcalcifications or new suspicious mass. Benign-appearing calcifications bilaterally. Overall Assessment: Benign, BI-RAD 2 Management: Screening Mammogram of both breasts in [address] [facility] will attempt to contact patient to return for supplemental views and ultrasound if indicated. Patient should continue monthly self-breast exams. A clinical breast exam by your physician is recommended on an annual basis. This exam should not preclude additional follow-up of suspicious palpable abnormalities. Note on Courtney scores and lifetime risk: 1. A Courtney score greater than 3% is considered moderate risk. If this is the case, consider specialist referral to assess eligibility for a risk reducing agent. 2. If overall lifetime risk for the development of breast cancer is 20% or higher, the patient may qualify for future screening with alternating mammogram and breast MRI. Electronically signed and approved by: Darien Locke DO
== END | disposition home or self-care (01) ==
LOC: RADBDWWP 14:05
PROVIDERS: ATTEND Internal Medicine
DX: Z12.31 Encounter for screening mammogram for malignant neoplasm of breast (principal); M85.89 Other specified disorders of bone density and structure, multiple sites; M80.052D Age-related osteoporosis with current pathological fracture, left femur, subsequent encounter for fracture with routine healing; Z78.0 Asymptomatic menopausal state
CPT/HCPCS: 77063; 77067; 77080

== ENCOUNTER → 2023-12-06 | Outpatient (CLI) | payer MEDICARE ==
[2023-12-06 12:31] LABS: Appearance,Urine Cloudy (Clear); Bacteria,Urine Occasional /hpf; Bilirubin,Urine Negative (Negative); Blood,Urine Negative (Negative); Color,Urine Colorless; Glucose,Urine (UA) Negative (Negative); Ketones,Urine Negative (Negative); Leukocyte Esterase,Urine Large (Negative); Mucus,Urine Rare /hpf; Nitrite,Urine Positive (Negative); Protein,Urine Negative (Negative); RBC,Urine 14 /hpf (0-5); Specific Gravity,Urine 1.013 (1.001-1.035); Urobilinogen,Urine <2.0 mg/dL (<2.0); WBC,Urine >182 /hpf (0-5)
[2023-12-06 15:21] LABS: Basophils # (A) 0.04 X 10*3/uL (0.00-0.10); Basophils % (A) 0.5 %; Eosinophils # (A) 0.24 X 10*3/uL (0.04-0.35); HCT 38.3 % (37.2-46.3); HGB 12.7 g/dL (12.0-15.0); Lymphocytes # (A) 1.18 X 10*3/uL (0.90-5.00); Lymphocytes % (A) 14.8 %; MCH 32.2 pg (27.0-32.0); MCHC 33.2 g/dL (32.0-37.0); MCV 97.2 FL (80.0-97.0); Mean Platelet Volume 9.8 FL (9.5-12.2); Monocytes # (A) 0.64 X 10*3/uL (0.20-1.00); NRBC Per 100 WBC 0 X 10*3/uL (0.00-0.01); Neutrophils # (A) 5.85 X 10*3/uL (1.80-7.70); Neutrophils % (A) 73.3 %; Platelet Count 266 X 10*3/uL (140-440); RBC 3.94 X 10*6/uL (4.10-5.20); RDW 13.2 % (11.5-14.5); WBC 7.98 X 10*3/uL (4.50-10.00)
[2023-12-06 15:40] LABS: ALT 14 U/L (8-44); AST 21 U/L (13-35); Albumin 4.2 g/dL (3.8-4.9); Albumin/Globulin Ratio 1.56 Ratio (1.60-3.17); Alkaline Phosphatase 90 U/L (41-126); BUN/Creat Ratio 24.12 Ratio (12.00-20.00); Blood Urea Nitrogen 19.3 mg/dL (9.0-27.0); Calcium 9.9 mg/dL (8.7-10.3); Carbon Dioxide 25.9 mmol/L (21.6-31.8); Chloride 104 mmol/L (96-109); Chol/HDL Ratio 3.09 Ratio; Globulin 2.7 g/dL (1.6-3.3); Glucose 96 mg/dL (70-110); LDL Cholesterol,Calculated 119.3 mg/dL (0.0-131.0); Magnesium 1.8 mg/dL (1.5-2.4); Potassium 4.9 mmol/L (3.5-5.5); Sodium 140 mmol/L (135-145); Total Bilirubin 0.4 mg/dL (0.3-1.2); Total Protein 6.9 g/dL (6.2-8.2); Uric Acid 4.4 mg/dL (2.9-7.7)
== END | disposition home or self-care (01) ==
LOC: LABWHC1 08:24
PROVIDERS: ATTEND Internal Medicine
DX: I10 Essential (primary) hypertension (principal); M17.9 Osteoarthritis of knee, unspecified; E03.9 Hypothyroidism, unspecified; E78.2 Mixed hyperlipidemia; M80.052D Age-related osteoporosis with current pathological fracture, left femur, subsequent encounter for fracture with routine healing
CPT/HCPCS: 36415; 80053; 80061; 81001; 82306; 82523; 83036; 83735; 84439; 84443; 84550; 85025; 87086

== ENCOUNTER → 2024-02-01 | Outpatient (CLI) | payer MEDICARE | END | disposition home or self-care (01) | LOC: LABWHC1 14:55 | PROVIDERS: ATTEND Internal Medicine | DX: E03.9 Hypothyroidism, unspecified (principal) | CPT/HCPCS: 36415; 84443; 84481 ==

== ENCOUNTER → 2024-03-18 | Outpatient (CLI) | payer MEDICARE ==
[2024-03-18 15:19] LABS: ALT 13 U/L (8-44); AST 24 U/L (13-35); Albumin 4.3 g/dL (3.8-4.9); Albumin/Globulin Ratio 1.65 Ratio (1.60-3.17); Alkaline Phosphatase 87 U/L (41-126); BUN/Creat Ratio 22.62 Ratio (12.00-20.00); Blood Urea Nitrogen 18.1 mg/dL (9.0-27.0); Calcium 10.1 mg/dL (8.7-10.3); Carbon Dioxide 23.6 mmol/L (21.6-31.8); Chloride 101 mmol/L (96-109); Chol/HDL Ratio 2.83 Ratio; Globulin 2.6 g/dL (1.6-3.3); Glucose 97 mg/dL (70-110); LDL Cholesterol,Calculated 112.6 mg/dL (0.0-131.0); Magnesium 1.8 mg/dL (1.5-2.4); Potassium 4.3 mmol/L (3.5-5.5); Sodium 139 mmol/L (135-145); Total Bilirubin 0.5 mg/dL (0.3-1.2); Total Protein 6.9 g/dL (6.2-8.2); Uric Acid 5.2 mg/dL (2.9-7.7)
[2024-03-18 19:12] LABS: Basophils # (A) 0.04 X 10*3/uL (0.00-0.10); Basophils % (A) 0.7 %; Eosinophils # (A) 0.15 X 10*3/uL (0.04-0.35); Eosinophils % (A) 2.5 %; HGB 12.5 g/dL (12.0-15.0); Lymphocytes # (A) 1.29 X 10*3/uL (0.90-5.00); Lymphocytes % (A) 21.5 %; MCH 31.9 pg (27.0-32.0); MCHC 32.9 g/dL (32.0-37.0); MCV 96.9 FL (80.0-97.0); Mean Platelet Volume 9.9 FL (9.5-12.2); Monocytes # (A) 0.63 X 10*3/uL (0.20-1.00); Monocytes % (A) 10.5 %; NRBC Per 100 WBC 0 X 10*3/uL (0.00-0.01); Neutrophils # (A) 3.88 X 10*3/uL (1.80-7.70); Neutrophils % (A) 64.6 %; Platelet Count 287 X 10*3/uL (140-440); RBC 3.92 X 10*6/uL (4.10-5.20); RDW 13.1 % (11.5-14.5)
== END | disposition home or self-care (01) ==
LOC: LABWHC1 11:42
PROVIDERS: ATTEND Internal Medicine
DX: I10 Essential (primary) hypertension (principal); E03.9 Hypothyroidism, unspecified; E78.2 Mixed hyperlipidemia; M80.052D Age-related osteoporosis with current pathological fracture, left femur, subsequent encounter for fracture with routine healing; G47.33 Obstructive sleep apnea (adult) (pediatric)
CPT/HCPCS: 36415; 80053; 80061; 82306; 83036; 83735; 84443; 84550; 85025

== ENCOUNTER → 2024-05-13 | Outpatient (CLI) | payer MEDICARE ==
[2024-05-13 15:30] LABS: ALT 13 U/L (8-44); AST 24 U/L (13-35); Albumin 4.4 g/dL (3.8-4.9); Albumin/Globulin Ratio 1.69 Ratio (1.60-3.17); Alkaline Phosphatase 84 U/L (41-126); BUN/Creat Ratio 26.38 Ratio (12.00-20.00); Blood Urea Nitrogen 21.1 mg/dL (9.0-27.0); Calcium 9.8 mg/dL (8.7-10.3); Carbon Dioxide 24.6 mmol/L (21.6-31.8); Chloride 100 mmol/L (96-109); Chol/HDL Ratio 2.87 Ratio; Globulin 2.6 g/dL (1.6-3.3); Glucose 95 mg/dL (70-110); LDL Cholesterol,Calculated 132.3 mg/dL (0.0-131.0); Potassium 4.1 mmol/L (3.5-5.5); Sodium 138 mmol/L (135-145); Total Bilirubin 0.5 mg/dL (0.3-1.2); VLDL Calculation 18.94 mg/dL (5.00-40.00)
== END | disposition home or self-care (01) ==
LOC: LABWHC1 10:58
PROVIDERS: ATTEND Internal Medicine
DX: E78.2 Mixed hyperlipidemia (principal); E03.9 Hypothyroidism, unspecified
CPT/HCPCS: 36415; 80053; 80061

== ENCOUNTER 2024-05-20 23:59 | Observation (INO) | payer MEDICARE ==
[2024-05-21 00:06] VITALS: RESP 18
[2024-05-21 01:29] LABS: Basophils % (A) 0 %; Eosinophils # (A) 0.2 k/uL (0-0.7); Eosinophils % (A) 3 %; HCT 39.6 % (34.0-46.0); HGB 12.9 gm/dL (11.4-16.0); Lymphocytes # (A) 1.2 k/uL (1.0-4.8); Lymphocytes % (A) 14 %; MCH 31.7 pg (25.0-35.0); MCHC 32.4 g/dL (31.0-37.0); MCV 97.8 fL (80.0-100.0); Monocytes # (A) 0.5 k/uL (0-1.0); Monocytes % (A) 5 %; Neutrophils % (A) 77 %; Platelet Count 242 k/uL (150-450); RBC 4.05 m/uL (3.80-5.40); RDW 13.3 % (11.5-15.5); WBC 9.1 k/uL (3.8-10.6)
[2024-05-21] MEDS: SODIUM CHLORIDE 0.9% 1,000 ML IV ONE (01:29)
[2024-05-21] MEDS: FAMOTIDINE 20 MG/2 ML VIAL IV STA (01:30)
[2024-05-21] MEDS: MORPHINE SULFATE 2 MG/ML SYRINGE IVP ONE (01:30)
--- NOTE | 2024-05-21 01:33 | ED ---
Abdominal Pain HPI - General Chief Complaint: Abdominal Pain Stated Complaint: Abd pain Time Seen by Provider: 05/21/24 00:05 Source: patient Mode of arrival: ambulatory Limitations: no limitations - History of Present Illness Initial Comments: 83-year-old female with past medical history of reflux, peptic ulcer disease who presents emergency department reporting to epigastric abdominal pain. States that it started after eating dinner today. She describes it as a burning, cramping sensation with radiation into her back. Pain is 10 out of 10. Denies taking any medications at home to alleviate her symptoms. Denies any history of abdominal surgeries. Does have a history of gastric ulcers however this was a very long time ago. No NSAID use. No alcohol use. No ripping or tearing sensation to her back. Denies any changes in her bowel or bladder habits. No fevers. No other alleviating, precipitating modifying factors - Related Data Home Medications Medication Instructions Recorded Confirmed Omeprazole [PriLOSEC] 20 mg PO DAILY 05/29/14 10/26/22 Levothyroxine Sodium [Synthroid] 112 mcg PO DAILY 10/23/22 10/26/22 Sennosides-Docusate Sodium 2 tab PO HS 10/26/22 10/26/22 [Senokot-S] Previous Rx's Medication Instructions Recorded Docusate [Colace] 100 mg PO BID #60 capsule 10/26/22 Acetaminophen Tab [Tylenol] 650 mg PO Q6HR PRN tab 10/30/22 Apixaban [Eliquis] 5 mg PO BID tab 10/30/22 Atorvastatin [Lipitor] 20 mg PO DAILY tab 10/30/22 Calcium Carbonate [Tums] 500 mg PO QID PRN tab 10/30/22 HYDROcodone/APAP 5-325MG [[place] 1 - 2 tab PO Q6HR PRN #2 tab 10/30/22 5-325] Metoprolol Tartrate [Lopressor] 25 mg PO BID tab 10/30/22 bisacodyL [Dulcolax] 10 mg RECTAL DAILY PRN suppositor 10/30/22 Allergies Allergy/AdvReac Type Severity Reaction Status Date / Time promethazine Allergy Nausea & Verified 05/21/24 00:06 Vomiting & Diarrhea tramadol [From Ultram] AdvReac severe Verified 05/21/24 00:06 headache and n/v Review of Systems ROS Statement: Those systems with pertinent positive or pertinent negative responses have been documented in the HPI. ROS Other: All systems not noted in ROS Statement are negative. Past Medical History Past Medical History: Chest Pain / Angina, GERD/Reflux, Sleep Apnea/CPAP/BIPAP, Thyroid Disorder Additional Past Medical History / Comment(s): "low hemoglobin" ,sciatica, does not use cpap,urinary leakage History of Any Multi-Drug Resistant Organisms: ESBL Date of last positivie culture/infection: 12/06/23 MDRO Source:: Urine Past Surgical History: Joint Replacement, Orthopedic Surgery Additional Past Surgical History / Comment(s): thyroid surgery, rt knee arthroscopic x 2 and replacement,bladder susp,bladder procedure,pain clinic proc Past Anesthesia/Blood Transfusion Reactions: Previous Problems w/ Anesthesia, Postoperative Nausea & Vomiting (PONV) Additional Past Anesthesia/Blood Transfusion Reaction / Comment(s): took long time to come out Past Psychological History: No Psychological Hx Reported Smoking Status: Never smoker Past Alcohol Use History: None Reported Past Drug Use History: None Reported - Past Family History Father History Unknown: Yes Family Medical History: No Reported History Mother History Unknown: Yes Family Medical History: No Reported History Additional Family Medical History / Comment(s): "kidney problems" General Exam Limitations: no limitations General appearance: alert, in distress Head exam: Present: atraumatic, normocephalic, normal inspection Eye exam: Present: normal appearance, PERRL, EOMI. Absent: scleral icterus, conjunctival injection, periorbital swelling ENT exam: Present: normal exam, mucous membranes moist Neck exam: Present: normal inspection. Absent: tenderness, meningismus, lymphadenopathy Respiratory exam: Present: normal lung sounds bilaterally. Absent: respiratory distress, wheezes, rales, rhonchi, stridor Cardiovascular Exam: Present: regular rate, normal rhythm, normal heart sounds. Absent: systolic murmur, diastolic murmur, rubs, gallop, clicks GI/Abdominal exam: Present: soft, tenderness (Epigastric), normal bowel sounds. Absent: distended, guarding, rebound, rigid Extremities exam: Present: normal inspection, full ROM, normal capillary refill. Absent: tenderness, pedal edema, joint swelling, calf tenderness Back exam: Present: normal inspection Neurological exam: Present: alert, oriented X3, CN II-XII intact Psychiatric exam: Present: normal affect, normal mood Skin exam: Present: warm, dry, intact, normal color. Absent: rash Course Vital Signs 05/21/24 00:01 Temperature 98.4 F Pulse Rate 69 Respiratory 18 Rate Blood Pressure 168/84 O2 Sat by Pulse 99 Oximetry Medical Decision Making - Medical Decision Making Was pt. sent in by a medical professional or institution (, PA, BOTTOM BLEACHER, urgent care, hospital, or alf...) When possible be specific @ -No Did you speak to anyone other than the patient for history (EMS, parent, family, police, friend...)? What history was obtained from this source @ -I spoke with the patient's son for history Did you review nursing and triage notes (agree or disagree)? Why? @ -I reviewed and agree with nursing and triage notes Were old charts reviewed (outside hosp., previous admission, EMS record, old EKG, old radiological studies, urgent care reports/EKG's, alf records)? Report findings @ -No old charts were reviewed Differential Diagnosis (chest pain, altered mental status, abdominal pain women, abdominal pain men, vaginal bleeding, weakness, fever, dyspnea, syncope, headache, dizziness, GI bleed, back pain, seizure, CVA, palpatations, mental health, musculoskeletal)? @ -Differential Abdominal Pain Women: Appendicitis, Cholecystitis, diverticulosis, ischemic bowel, pancreatitis, hepatitis, UTI, gastroenteritis, AAA, incarcerated hernia, bowel obstruction, constipation, inflammatory bowel, hepatitis, peptic ulcer disease, splenic infarction, perforated viscus, vulvitis, ovarian torsion, PID, kidney stone, placenta abruption, this is not meant to be an all-inclusive list EKG interpreted by me (3pts min.). @ -Yes and demonstrates sinus rhythm with a rate of 60. MS interval 192. QRS 97. QTc of 426. No acute ST segment elevations or depressions. Q wave in lead III X-rays interpreted by me (1pt min.). @ -None done CT interpreted by me (1pt min.). @ -Yes and demonstrates no acute findings U/S interpreted by me (1pt. min.). @ -Pending at this time What testing was considered but not performed or refused? (CT, X-rays, U/S, labs)? Why? @ -HIDA scan however patient will require admission and testing is scheduled for 11 AM What meds were considered but not given or refused? Why? @ -None Did you discuss the management of the patient with other professionals (professionals i.e. , PA, BOTTOM BLEACHER, lab, RT, psych nurse, social organization professor, film processor, teacher, commercial loan officer, case packer)? Give summary @ -Spoke with Dr. Mendoza who will admit the patient Was smoking cessation discussed for >3mins.? @ -No Was critical care preformed (if so, how long)? @ -No Were there social determinants of health that impacted care today? How? (Homelessness, low income, unemployed, alcoholism, drug addiction, transportation, low edu. Level, literacy, decrease access to med. care, mcc, rehab)? @ -No Was there de-escalation of care discussed even if they declined (Discuss DNR or withdrawal of care, Hospice)? DNR status @ -No What co-morbidities impacted this encounter? (DM, HTN, Smoking, COPD, CAD, Cancer, CVA, ARF, Chemo, Hep., AIDS, mental health diagnosis, sleep apnea, morbid obesity)? @ -GERD Was patient admitted / discharged? Hospital course, mention meds given and route, prescriptions, significant lab abnormalities, going to OR and other pertinent info. @ -Upon arrival patient seen and evaluated in room 31. Thorough history and physical exam was performed. IV was established. Patient given pepcid, zofran and morphine. Laboratory studies are conducted. CT was performed. Upon return the results are discussed with patient she continues to have symptoms and theref ore she was administered additional pain medications. Patient reevaluated and continues nauseated with pain. I did discuss further testing to include a gallbladder ultrasound which will be performed at 7 AM. I do feel the patient would benefit from a HIDA scan. This can be completed at 11 am. Called and spoke with Dr. Mendoza who will admit the patient. Patient pending a bed on the floor in stable condition Undiagnosed new problem with uncertain prognosis? @ -Yes Drug Therapy requiring intensive monitoring for toxicity (Heparin, Nitro, Insulin, Cardizem)? @ -No Were any procedures done? @ -No Diagnosis/symptom? @ -Acute epigastric abdominal pain, acute nausea and vomiting Acute, or Chronic, or Acute on Chronic? @ -Acute Uncomplicated (without systemic symptoms) or Complicated (systemic symptoms)? @ -Complicated Side effects of treatment? @ -No Exacerbation, Progression, or Severe Exacerbation? @ -No Poses a threat to life or bodily function? How? (Chest pain, [place], [place], pneumonia, PE, COPD, DKA, ARF, appy, cholecystitis, CVA, Diverticulitis, Homicidal, Suicidal, threat to staff... and all critical care pts) @ -No - Lab Data Result diagrams: 05/21/24 00:42 05/21/24 00:42 Lab Results 05/21/24 05/21/24 05/21/24 Range/Units 00:42 00:42 00:42 WBC 9.1 (3.8-10.6) k/uL RBC 4.05 (3.80-5.40) m/uL Hgb 12.9 (11.4-16.0) gm/dL Hct 39.6 (34.0-46.0) % MCV 97.8 (80.0-100.0) fL MCH 31.7 (25.0-35.0) pg MCHC 32.4 (31.0-37.0) g/dL RDW 13.3 (11.5-15.5) % Plt Count 242 (150-450) k/uL MPV 7.0 Neutrophils % 77 % Lymphocytes % 14 % Monocytes % 5 % Eosinophils % 3 % Basophils % 0 % Neutrophils # 7.0 (1.3-7.7) k/uL Lymphocytes # 1.2 (1.0-4.8) k/uL Monocytes # 0.5 (0-1.0) k/uL Eosinophils # 0.2 (0-0.7) k/uL Basophils # 0.0 (0-0.2) k/uL Sodium 135 L (137-145) mmol/L Potassium 4.1 (3.5-5.1) mmol/L Chloride 103 (98-107) mmol/L Carbon Dioxide 24 (22-30) mmol/L Anion Gap 8 mmol/L BUN 23 H (7-17) mg/dL Creatinine 0.80 (0.52-1.04) mg/dL Est GFR (CKD-EPI)AfAm 79 (>60 ml/min/1.73 sqM) Est GFR (CKD-EPI)NonAf 68 (>60 ml/min/1.73 sqM) Glucose 101 H (74-99) mg/dL Plasma Lactic Acid Bull 1.0 (0.7-2.0) mmol/L Calcium 9.6 (8.4-10.2) mg/dL Total Bilirubin 0.3 (0.2-1.3) mg/dL AST 30 (14-36) U/L ALT 16 (4-34) U/L Alkaline Phosphatase 78 (38-126) U/L Troponin I (0.000-0.034) ng/mL Total Protein 7.0 (6.3-8.2) g/dL Albumin 4.3 (3.5-5.0) g/dL Lipase 265 (23-300) U/L Urine Color Urine Appearance (Clear) Urine pH (5.0-8.0) Ur Specific [place] (1.001-1.035) Urine Protein (Negative) Urine Glucose (UA) (Negative) Urine Ketones (Negative) Urine Blood (Negative) Urine Nitrite (Negative) Urine Bilirubin (Negative) Urine Urobilinogen (<2.0) mg/dL Ur Leukocyte Esterase (Negative) Urine RBC (0-5) /hpf Urine WBC (0-5) /hpf Urine WBC Clumps (None) /hpf Urine Bacteria (None) /hpf 05/21/24 05/21/24 Range/Units 00:42 00:43 WBC (3.8-10.6) k/uL RBC (3.80-5.40) m/uL Hgb (11.4-16.0) gm/dL Hct (34.0-46.0) % MCV (80.0-100.0) fL MCH (25.0-35.0) pg MCHC (31.0-37.0) g/dL RDW (11.5-15.5) % Plt Count (150-450) k/uL MPV Neutrophils % % Lymphocytes % % Monocytes % % Eosinophils % % Basophils % % Neutrophils # (1.3-7.7) k/uL Lymphocytes # (1.0-4.8) k/uL Monocytes # (0-1.0) k/uL Eosinophils # (0-0.7) k/uL Basophils # (0-0.2) k/uL Sodium (137-145) mmol/L Potassium (3.5-5.1) mmol/L Chloride (98-107) mmol/L Carbon Dioxide (22-30) mmol/L Anion Gap mmol/L BUN (7-17) mg/dL Creatinine (0.52-1.04) mg/dL Est GFR (CKD-EPI)AfAm (>60 ml/min/1.73 sqM) Est GFR (CKD-EPI)NonAf (>60 ml/min/1.73 sqM) Glucose (74-99) mg/dL Plasma Lactic Acid Bull (0.7-2.0) mmol/L Calcium (8.4-10.2) mg/dL Total Bilirubin (0.2-1.3) mg/dL AST (14-36) U/L ALT (4-34) U/L Alkaline Phosphatase (38-126) U/L Troponin I <0.012 (0.000-0.034) ng/mL Total Protein (6.3-8.2) g/dL Albumin (3.5-5.0) g/dL Lipase (23-300) U/L Urine Color Colorless Urine Appearance Cloudy H (Clear) Urine pH 6.5 (5.0-8.0) Ur Specific [place] 1.017 (1.001-1.035) Urine Protein Negative (Negative) Urine Glucose (UA) Negative (Negative) Urine Ketones Negative (Negative) Urine Blood Negative (Negative) Urine Nitrite Negative (Negative) Urine Bilirubin Negative (Negative) Urine Urobilinogen <2.0 (<2.0) mg/dL Ur Leukocyte Esterase Large H (Negative) Urine RBC 5 (0-5) /hpf Urine WBC >182 H (0-5) /hpf Urine WBC Clumps Moderate H (None) /hpf Urine Bacteria Many H (None) /hpf Disposition Clinical Impression: Epigastric pain, Nausea & vomiting, UTI (urinary tract infection) Disposition: ADMITTED IP TO THIS HOSP Condition: Stable Is patient prescribed a controlled substance at d/c from ED?: No Time of Disposition: 05:43 Decision to Admit Reason: Admit from EC Decision Date: 05/21/24 Decision Time: 05:43
[2024-05-21 01:50] LABS: ALT 16 U/L (4-34); AST 30 U/L (14-36); African American GFR (CKD) 79 (>60 ml/min/1.73 sqM); Albumin 4.3 g/dL (3.5-5.0); Alkaline Phosphatase 78 U/L (38-126); Anion Gap 8 mmol/L; Blood Urea Nitrogen 23 mg/dL (7-17); Calcium 9.6 mg/dL (8.4-10.2); Carbon Dioxide 24 mmol/L (22-30); Chloride 103 mmol/L (98-107); Glucose 101 mg/dL (74-99); Lipase 265 U/L (23-300); Non-African American GFR(CKD) 68 (>60 ml/min/1.73 sqM); Potassium 4.1 mmol/L (3.5-5.1); Sodium 135 mmol/L (137-145); Total Bilirubin 0.3 mg/dL (0.2-1.3)
[2024-05-21 02:54] LABS: Appearance,Urine Cloudy (Clear); Bacteria,Urine Many /hpf; Bilirubin,Urine Negative (Negative); Blood,Urine Negative (Negative); Color,Urine Colorless; Glucose,Urine (UA) Negative (Negative); Ketones,Urine Negative (Negative); Leukocyte Esterase,Urine Large (Negative); Nitrite,Urine Negative (Negative); PH, Urine 6.5 (5.0-8.0); Protein,Urine Negative (Negative); RBC,Urine 5 /hpf (0-5); Specific Gravity,Urine 1.017 (1.001-1.035); Urobilinogen,Urine <2.0 mg/dL (<2.0); WBC,Urine >182 /hpf (0-5)
[2024-05-21] MEDS: MORPHINE SULFATE 4 MG/ML SYRINGE IVP STA (03:30)
--- NOTE | 2024-05-21 04:55 | CT ---
EXAM: CT Abdomen and Pelvis With Intravenous Contrast CLINICAL HISTORY: ITS.REASON CT Reason: abd pain TECHNIQUE: Axial computed tomography images of the abdomen and pelvis with intravenous contrast. CTDI is 15.7 mGy and DLP is 655.2 mGy-cm. This CT exam was performed using one or more of the following dose reduction techniques: automated exposure control, adjustment of the mA and/or kV according to patient size, and/or use of iterative reconstruction technique. COMPARISON: CT abdomen pelvis May 19, 2020. FINDINGS: Lung bases: Unremarkable. No mass. No consolidation. ABDOMEN: Liver: Unremarkable. No mass. Gallbladder and bile ducts: Unremarkable. No calcified stones. No ductal dilation. Pancreas: Unremarkable. No mass. No ductal dilation. Spleen: Unremarkable. No splenomegaly. Adrenals: Unremarkable. No mass. Kidneys and ureters: Unremarkable. No solid mass. No hydronephrosis. Stomach and bowel: Diverticulosis, without acute diverticulitis. No small bowel obstruction. No free intraperitoneal air. PELVIS: Appendix: No findings to suggest acute appendicitis. Bladder: Unremarkable. No mass. Reproductive: Unremarkable as visualized. ABDOMEN and PELVIS: Intraperitoneal space: Unremarkable. No free air. No significant fluid collection. Bones/joints: Degenerative changes of the spine. RIGHT hip arthroplasty. No acute fracture. No dislocation. Soft tissues: Unremarkable. Vasculature: Atherosclerotic changes of the aorta. No abdominal aortic aneurysm. Lymph nodes: Unremarkable. No enlarged lymph nodes. IMPRESSION: Diverticulosis, without acute diverticulitis. No small bowel obstruction. No free intraperitoneal air.
[2024-05-21] MEDS: ONDANSETRON 4 MG/2 ML VIAL IVP STA (04:58)
[2024-05-21] MEDS ORDERED: ONDANSETRON 4 MG/2 ML VIAL IVP PRN (05:45)
[2024-05-21] MEDS ORDERED: NALOXONE 0.4 MG/ML 1 ML VIAL IV PRN (05:45)
[2024-05-21] MEDS: SODIUM CHLORIDE 0.9% 1,000 ML IV SCH (06:05)
--- NOTE | 2024-05-21 07:31 | US ---
EXAMINATION TYPE: US gallbladder DATE OF EXAM: 05/21/2024 COMPARISON: NONE CLINICAL INDICATION: Female, 83 years old with history of ruq pain; epigastric pain after dinner last night, N/V TECHNIQUE: Multiple sonographic images of the right upper quadrant are obtained. FINDINGS: EXAM MEASUREMENTS: Liver Length: 14.0 cm Gallbladder Wall: 0.2 cm CBD: 1.0 cm Right Kidney: 8.1 x 4.0 x 3.8 cm Pancreas: wnl. Pancreatic duct is well-visualized but remains within normal measurement limits. Liver: wnl Gallbladder: wnl Evidence for sonographic Meneses's sign: no CBD: May be some minimal prominence of the common bile duct, normal 0.8 cm at this age. Right Kidney: small in size, bowel gas obscures view IMPRESSION: 1. No acute ultrasound abnormality right upper quadrant
[2024-05-21] MEDS: cefTRIAXone IN SWFI 1,000 MG/10 ML SYRINGE IVP STA (08:28)
[2024-05-21] MEDS: PANTOPRAZOLE 40 MG/10 ML VIAL IV SCH (08:40)
[2024-05-21] MEDS ORDERED: PANTOPRAZOLE 40 MG/10 ML VIAL IV SCH (09:00)
--- NOTE | 2024-05-21 12:25 | P.CONS ---
History of Present Illness - Reason for Consult Consult date: 05/21/24 Epigastric abdominal pain Requesting physician: Modesta Glover - Chief Complaint Abdominal pain - History of Present Illness Is a pleasant 83-year-old female who presented to the emergency department yesterday evening with complaints of abdominal pain. Patient states after she ate dinner she had acute onset of right upper quadrant abdominal pain. She states that it continued to last and was accompanied by nausea and vomiting. She came in for further evaluation. She does have a past medical history including GERD, sleep apnea and thyroid disorder. She states she takes omeprazole at home. She has been seen in the past by gastroenterology in 2014 for epigastric pain which she was using Mobic regularly at that time, she was found to have scattered erosions in the antrum of the stomach consistent with NSAID use in 2013 with recommendation for proton pump inhibitor. Patient denies any NSAID use states she only uses Tylenol. Had a CT of the abdomen pelvis with no acute findings as well as gallbladder ultrasound with no acute findings. This morning she states abdominal pain has subsided she has no epigastric pain, she did vomit once this morning which she states was her salad that she ate yesterday, denied any coffee-ground emesis or hematemesis. Patient does take Eliquis last taken yesterday evening. She is scheduled for HIDA scan today. She denies having pain like this before. No previous history of gallbladder disease. Review of Systems REVIEW OF SYSTEMS: CARDIOPULMONARY: No chest pain or shortness of breath. Gastrointestinal: Abdominal pain, mostly in right upper quadrant now resolved , nausea and vomiting now resolved. no hematemesis, coffee-ground emesis. No rectal bleeding, or melena. GENITOURINARY: No dysuria or hematuria. MUSCULOSKELETAL: Reports normal range of motion., Joint pain. SKIN: No rashes. No jaundice. ENDOCRINE: No chills, fevers. No excessive weight gain or loss. No polydipsia or polyuria. PSYCHIATRIC: Unremarkable. NEUROLOGY: No change in mental status. Denies dizziness, headache. ENT: Vision unremarkable. CONSTITUTIONAL: No recent weight loss. No fever, chills, night sweats. Past Medical History Past Medical History: Chest Pain / Angina, GERD/Reflux, Sleep Apnea/CPAP/BIPAP, Thyroid Disorder Additional Past Medical History / Comment(s): "low hemoglobin" ,sciatica, does not use cpap,urinary leakage History of Any Multi-Drug Resistant Organisms: ESBL Year Discovered:: 12/06/23 MDRO Source:: Urine Past Surgical History: Joint Replacement, Orthopedic Surgery Additional Past Surgical History / Comment(s): thyroid surgery, rt knee arthroscopic x 2 and replacement,bladder susp,bladder procedure,pain clinic proc Past Anesthesia/Blood Transfusion Reactions: Previous Problems w/ Anesthesia, Postoperative Nausea & Vomiting (PONV) Additional Past Anesthesia/Blood Transfusion Reaction / Comm: took long time to come out Past Psychological History: No Psychological Hx Reported Smoking Status: Never smoker Past Alcohol Use History: None Reported Past Drug Use History: None Reported - Past Family History Father History Unknown: Yes Family Medical History: No Reported History Mother History Unknown: Yes Family Medical History: No Reported History Additional Family Medical History / Comment(s): "kidney problems" Medications and Allergies Home Medications Medication Instructions Recorded Confirmed Type Acetaminophen Tab [Tylenol] 650 mg PO Q6HR PRN tab 10/30/22 05/21/24 Rx Apixaban [Eliquis] 2.5 mg PO BID 05/21/24 05/21/24 History Calcium Carbonate/Vitamin D3 1 tab PO DAILY 05/21/24 05/21/24 History [Calcium 600 mg-D3 20 mcg (800 unit)] Levothyroxine Sodium [Synthroid] 125 mcg PO DAILY 05/21/24 05/21/24 History Metoprolol Tartrate [Lopressor] 12.5 mg PO BID 05/21/24 05/21/24 History Multivit-Min/Iron/Folic/Lutein 1 tab PO DAILY 05/21/24 05/21/24 History [Centrum Silver Women Tablet] Allergies Allergy/AdvReac Type Severity Reaction Status Date / Time baclofen AdvReac constipatio Verified 05/21/24 08:10 n cephalexin [From Keflex] AdvReac Diarrhea Verified 05/21/24 08:10 dexamethasone AdvReac "does not Verified 05/21/24 08:10 work" fexofenadine [From Minerva] AdvReac unsteady Verified 05/21/24 08:10 gait gabapentin AdvReac headache Verified 05/21/24 08:10 hydrocodone AdvReac Dizziness Verified 05/21/24 08:10 levofloxacin [From Levaquin] AdvReac cannot Verified 05/21/24 08:10 sleep meloxicam [From Mobic] AdvReac Nausea Verified 05/21/24 08:10 nitrofurantoin AdvReac Diarrhea Verified 05/21/24 08:10 [From Macrobid] promethazine AdvReac Nausea & Verified 05/21/24 08:10 Vomiting & Diarrhea tramadol [From Ultram] AdvReac severe Verified 05/21/24 08:10 headache and n/v Physical Exam Vitals: Vital Signs Temp Pulse Resp BP Pulse Ox 05/21/24 06:50 97.6 F 79 18 146/81 96 05/21/24 00:01 98.4 F 69 18 168/84 99 Intake and Output 05/20/24 05/21/24 05/21/24 22:59 06:59 14:59 Other: Weight 58.967 kg General appearance: The patient is alert, oriented, appears in no acute distress. HET: Head is normocephalic and atraumatic. Conjunctiva pink. Sclera anicteric. Neck: Supple without lymphadenopathy. Trachea midline. Heart: Regular. Lungs: Equal expansion, normal respiratory effort. Abdomen: Soft, nontender, nondistended. Skin: No rashes. No jaundice. Extremities: Normal skin color and turgor. No pedal edema. Neurological: No focal deficits. Alert and oriented x3. Results CBC & Chem 7: 05/21/24 00:42 05/21/24 00:42 Labs: Abnormal Lab Results - Last 24 Hours (Table) 05/21/24 05/21/24 Range/Units 00:42 00:43 Sodium 135 L (137-145) mmol/L BUN 23 H (7-17) mg/dL Glucose 101 H (74-99) mg/dL Urine Appearance Cloudy H (Clear) Ur Leukocyte Esterase Large H (Negative) Urine WBC >182 H (0-5) /hpf Urine WBC Clumps Moderate H (None) /hpf Urine Bacteria Many H (None) /hpf Assessment and Plan (1) Abdominal pain Narrative/Plan: 83-year-old female who presented with acute onset abdominal pain with nausea and vomiting following her dinner yesterday. Was admitted to the hospital for further evaluation. CT abdomen pelvis without any acute findings as well as gallbladder ultrasound. Pain is now subsided. No previous history of similar abdominal pain or gallbladder disease. Symptoms have all resolved. Unclear etiology abdominal pain possibly gastritis or gastroenteritis. Recommend Protonix 40 mg twice a day. Diet as tolerated. Patient is scheduled for HIDA scan previously ordered by ER attending. No plans on endoscopic evaluation at this time unless pain resumes. Hold Eliquis for now Current Visit: Yes Status: Acute Code(s): R10.9 - UNSPECIFIED ABDOMINAL PAIN SNOMED Code(s): 35881201 (2) Nausea & vomiting Current Visit: Yes Status: Acute Code(s): R11.2 - NAUSEA WITH VOMITING, UNSPECIFIED SNOMED Code(s): 64413118 Plan: 1. Continue symptomatic and supportive care 2. Antiemetics as needed 3. Patient may have clear liquid diet then diet as tolerated 4. Protonix 40 mg twice daily 5. Hold Eliquis 6. No plans at this time for any endoscopic evaluation as pain has subsided, possible gastroenteritis versus gallbladder disease Thank you for this consultation, patient is cleared from gastroenterology for discharge Dr. Jefry Fletcher I agree with the dictator's note, documented as a scribe by Liza Vazquez.
--- NOTE | 2024-05-21 13:55 | NM ---
EXAMINATION TYPE: NM hepatobiliary w CCK DATE OF EXAM: 05/21/2024 COMPARISON: NONE INDICATION: Right upper quadrant pain, nausea TECHNIQUE: After the intravenous administration of 5.0 mCi Tc 99m Mebrofenin hepatobiliary scintigrap hy is performed. Images were obtained immediately post injection. FINDINGS: There is prompt uptake and excretion of radiotracer by the liver. Extrahepatic ducts are identified at 4 minutes. The gallbladder is visualized within 14 minutes. Small bowel activity is noted within 24 minutes. At one hour CCK was administered, patient was injected with 1.2 mcg of Kinevac, and gallbladder eject ion fraction is calculated at 34 %, which is slightly low. (Normal >35% and <80%.). IMPRESSION: 1. Mild diminished ejection fraction 34%. Normal greater than 35%. 2. No obstruction
[2024-05-21 14:23] VITALS: BP 147/83; PULSE 70; TEMP 98.3
[2024-05-21] MEDS ORDERED: ACETAMINOPHEN TAB 325 MG TAB PO PRN (15:55)
[2024-05-21] MEDS ORDERED: METOPROLOL TARTRATE 12.5 MG TAB PO SCH (21:00)
[2024-05-22] MEDS ORDERED: LEVOTHYROXINE 125 MCG TAB PO SCH (06:30)
[2024-05-22] MEDS ORDERED: CALCIUM CARB-VIT D 500 MG-5 MCG TAB PO SCH (09:00)
[2024-05-22] MEDS ORDERED: MULTIVITAMINS, THERA 1 EACH TAB PO SCH (09:00)
--- NOTE | 2024-05-23 17:05 | P.HPIM ---
History of Present Illness H&P Date: 05/21/24 Chief Complaint: Intractable abdominal pain This is history and physical and discharge summary. HISTORY OF PRESENT ILLNESS: This is an 83-year-old female with a previous medical history significant for hypertension and hypertensive cardiovascular disease, mixed h yperlipidemia, paroxysmal atrial fibrillation, obstructive sleep apnea, idiopathic scoliosis, macular degeneration, patient presented to the emergency department at [facility] in the evening after she has had her dinner and all of a sudden developed to have a significant right upper quadrant abdominal pain associated with intractable nausea with no vomiting, she eventually by the time she came to the emergency department she was able to vomit once, patient was given multiple antiemetic, had a CT scan of the abdomen and pelvis did not show evidence of acute abnormalities, this was followed by ultrasound of the gallbladder that did not show evidence of any gallstones, then this followed by a HIDA scan that showed evidence of ejection fraction about 34% normal about 35%, patient felt better later on after IV fluid resuscitation and antiemetic, and she was able to tolerate her diet well, therefore she was discharged home and to follow-up with me as an outpatient, patient was seen in consultation by gastroenterology it was recommended conservative management for now and she was instructed to start taking PPI at this time until she will follow-up with us in the office. REVIEW OF SYSTEMS: Constitutional: No documented fever, no chills, no night sweats. No weight change. No weakness, fatigue or lethargy. No daytime sleepiness. EENT: No headache. No blurred vision or double vision, no loss of vision. No loss of Hearing, no ringing in the ears, no dizziness. No nasal drainage or congestion. No epistaxis. No sore throat. Lungs: No shortness of breath, no cough, no sputum production. No wheezing. Reports dyspnea with activity. Cardiovascular: No chest pain, no lower extremity edema. No palpitations. No paroxysmal nocturnal dyspnea. No orthopnea. No lightheadedness or dizziness. No syncopal episodes. Abdominal: Reports abdominal pain. positive for nausea,positive for vomiting. No diarrhea. No constipation. No bloody or tarry stools reports loss of a ppetite. Genitourinary: No dysuria, increased frequency, urgency. No urinary retention. Musculoskeletal: No myalgias. No muscle weakness, no gait dysfunction, no frequent falls. No back pain. No neck pain. Integumentary: No wounds, no lesions. No rash or pruritus. No unusual bruising. No change in hair or nails. Neurologic: No aphasia. No facial droop. No change in mentation. No head injury. No headache. No paralysis. No paresthesia. Psychiatric: No depression. No anxiety. No mood swings. Endocrine: No abnormal blood sugars. No weight change. PAST MEDICAL HISTORY: Essential hypertension. Mixed hyperlipidemia. Paroxysmal atrial fibrillation. Obstructive sleep apnea. Macular degeneration. Scoliosis. GERD. PAST SURGICAL HISTORY: Right femur ORIF 10/2022 Right hip replacement 2016 Right knee replacement 2012 Bladder suspension 1999 Partial right thyroidectomy 2001 Left heart catheterization 2021 Colonoscopy 2017. SOCIAL HISTORY: Patient used to smoke few cigarettes every day from 17 till age of 24 and she quit many years ago, she denies any alcohol ingestion, she denies any drug use or abuse. FAMILY HISTORY: Father at age of 72 from [place], mother at age of 68 from renal disease, patient had 1 brother who at age of 85 from CAD, patient had 1 son who pa ssed at the age of 26, and she has 1 living son and 1 daughter no major medical problems. PHYSICAL EXAMINATION: General: 83-year-old female laying down in bed in no apparent distress. HEENT: Head is atraumatic, normocephalic, pupils were equal round reactive to light and recommendation, extraocular muscle movement were intact, sclera nonicteric, conjunctivae were pale, mucous membranes of the mouth are somewhat dry. Neck: Supple, no JVP, normal carotid upstroke bilaterally, no lymphadenopathy. Chest: Decreased breath sounds at the bases, few rhonchi, no expiratory wheezes, no chest wall tenderness, no intercostal retractions. Heart: First heart sound is normal, second heart sound is normal there is systolic ejection murmur 2/6 located in the left sternal border. Abdomen: Soft, mild tenderness to the right upper quadrant nondistended, positive bowel sounds. Extremities: There is no edema no calf tenderness DP +2 bilaterally. Neurologic examination: Patient is awake alert and oriented x3, cranial nerves II-12 appear grossly intact, muscle power were 5 out of 5 in upper extremities and 5 out of 5 in bilateral lower extremities, deep tendon reflexes normal bilaterally. ASSESSMENT AND PLAN: 1. Intractable abdominal pain with 1 episode of vomiting negative workup so far except for slightly lower ejection fraction of the gallbladder doubt the reason for her vomiting likely GERD with esophagitis. Maintain the patient on Protonix 40 mg orally once every day, follow-up with the patient as an outpatient in the next week, patient was seen in consultation by general gastroenterology recommended conservative management for now. No planned endoscopy at this point in time. 2. Hypertension and hypertensive cardiovascular disease. Metoprolol 25 mg orally twice every day, monitor the patient blood pressure very closely. 3. Mixed hyperlipidemia. Patient will need to be started on statin as an outpatient. 4. Paroxysmal atrial fibrillation. Continue patient on metoprolol 25 mg orally twice every day, continue Eliquis 2.5 mg orally twice every day for life. 5. Obstructive sleep apnea. Stable. 6. Scoliosis. Stable. 7. Adult onset macular degeneration. Continue PreserVision 2 capsule orally once every day. 8. Hypothyroidism. Continue Synthroid 125 mcg orally once every day, monitor the patient thyroid function test as an outpatient. 9. DVT prophylaxis. Continue Eliquis 2.5 mg orally twice every day. 10. GI prophylaxis. Continue PPI. 11. Observation. 12. Patient is stable enough and medically stable to be discharged home she will be discharged from the emergency department and I will follow-up with her as an outpatient in 1 week. Past Medical History Past Medical History: Chest Pain / Angina, GERD/Reflux, Sleep Apnea/CPAP/BIPAP, Thyroid Disorder Additional Past Medical History / Comment(s): "low hemoglobin" ,sciatica, does not use cpap,urinary leakage History of Any Multi-Drug Resistant Organisms: ESBL Date of last positivie culture/infection: 12/06/23 MDRO Source:: Urine Past Surgical History: Joint Replacement, Orthopedic Surgery Additional Past Surgical History / Comment(s): thyroid surgery, rt knee arthroscopic x 2 and replacement,bladder susp,bladder procedure,pain clinic proc Past Anesthesia/Blood Transfusion Reactions: Previous Problems w/ Anesthesia, Postoperative Nausea & Vomiting (PONV) Additional Past Anesthesia/Blood Transfusion Reaction / Comment(s): took long time to come out Past Psychological History: No Psychological Hx Reported Smoking Status: Never smoker Past Alcohol Use History: None Reported Past Drug Use History: None Reported - Past Family History Father History Unknown: Yes Family Medical History: No Reported History Mother History Unknown: Yes Family Medical History: No Reported History Additional Family Medical History / Comment(s): "kidney problems" Medications and Allergies Home Medications Medication Instructions Recorded Confirmed Type Acetaminophen Tab [Tylenol] 650 mg PO Q6HR PRN tab 10/30/22 05/21/24 Rx Apixaban [Eliquis] 2.5 mg PO BID 05/21/24 05/21/24 History Calcium Carbonate/Vitamin D3 1 tab PO DAILY 05/21/24 05/21/24 History [Calcium 600 mg-D3 20 mcg (800 unit)] Levothyroxine Sodium [Synthroid] 125 mcg PO DAILY 05/21/24 05/21/24 History Metoprolol Tartrate [Lopressor] 12.5 mg PO BID 05/21/24 05/21/24 History Multivit-Min/Iron/Folic/Lutein 1 tab PO DAILY 05/21/24 05/21/24 History [Centrum Silver Women Tablet] Allergies Allergy/AdvReac Type Severity Reaction Status Date / Time baclofen AdvReac constipatio Verified 05/21/24 08:10 n cephalexin [From Keflex] AdvReac Diarrhea Verified 05/21/24 08:10 dexamethasone AdvReac "does not Verified 05/21/24 08:10 work" fexofenadine [From Minerva] AdvReac unsteady Verified 05/21/24 08:10 gait gabapentin AdvReac headache Verified 05/21/24 08:10 hydrocodone AdvReac Dizziness Verified 05/21/24 08:10 levofloxacin [From Levaquin] AdvReac cannot Verified 05/21/24 08:10 sleep meloxicam [From Mobic] AdvReac Nausea Verified 05/21/24 08:10 nitrofurantoin AdvReac Diarrhea Verified 05/21/24 08:10 [From Macrobid] promethazine AdvReac Nausea & Verified 05/21/24 08:10 Vomiting & Diarrhea tramadol [From Ultram] AdvReac severe Verified 05/21/24 08:10 headache and n/v Physical Exam Vitals: Vital Signs Temp Pulse Resp BP Pulse Ox 05/21/24 14:15 98.3 F 70 18 147/83 95 05/21/24 06:50 97.6 F 79 18 146/81 96 05/21/24 00:01 98.4 F 69 18 168/84 99 Intake and Output 05/21/24 05/21/2405/21/24 06:59 14:59 22:59 Other: Weight 58.967 kg Results CBC & Chem 7: 05/21/24 00:42 05/21/24 00:42 Labs: Abnormal Lab Results - Last 24 Hours (Table) 05/21/24 05/21/24 Range/Units 00:42 00:43 Sodium 135 L (137-145) mmol/L BUN 23 H (7-17) mg/dL Glucose 101 H (74-99) mg/dL Urine Appearance Cloudy H (Clear) Ur Leukocyte Esterase Large H (Negative) Urine WBC >182 H (0-5) /hpf Urine WBC Clumps Moderate H (None) /hpf Urine Bacteria Many H (None) /hpf
== END 2024-05-21 19:20 | disposition home or self-care (01) ==
LOC: EC 23:59 → 6NMEDSUR 05-21 05:51
PROVIDERS: ADMIT Internal Medicine; ATTEND Internal Medicine
DX: R10.13 Epigastric pain (principal); R11.2 Nausea with vomiting, unspecified; I11.9 Hypertensive heart disease without heart failure; E78.2 Mixed hyperlipidemia; I48.0 Paroxysmal atrial fibrillation; G47.33 Obstructive sleep apnea (adult) (pediatric); K21.9 Gastro-esophageal reflux disease without esophagitis; H35.30 Unspecified macular degeneration; M41.9 Scoliosis, unspecified; E89.0 Postprocedural hypothyroidism; Z87.11 Personal history of peptic ulcer disease; Z87.891 Personal history of nicotine dependence; Z79.01 Long term (current) use of anticoagulants; Z79.890 Hormone replacement therapy; Z79.899 Other long term (current) drug therapy; Z88.5 Allergy status to narcotic agent; N39.0 Urinary tract infection, site not specified; Z88.1 Allergy status to other antibiotic agents
CPT/HCPCS: 96376; 96361; 96374; 96375; 99285; 36415; 93005; 80053; 83605; 83690; 84484; 85025; 81001; 87040; 76705; 74177; 78227; G0378 ×2; A9537; J2270 ×2; J2405; J2805; J0696; J3490; Q9967; J2470

== ENCOUNTER → 2024-06-06 | Outpatient (CLI) | payer MEDICARE ==
--- NOTE | 2024-06-14 16:01 | NM ---
EXAMINATION TYPE: NM DatScan Brain SPECT DATE OF EXAM: 06/06/2024 COMPARISON: NONE CLINICAL INDICATION: Female, 83 years old with history of R25.1 TREMOR, UNSPECIFIED; TECHNIQUE: 10 drops of Lugol's solution was administered 1 hour prior to injection as a thyroid bloc elaine agent. After the administration of 4.4 mCi I-123 Ioflupane DaTscan. Images obtained [address] injection. SPECT images of the brain were acquired with axial and coronal reconstructions. FINDINGS: The uptake of radiotracer within the patient's caudate nuclei and putamina is symmetric and crescent- shaped. IMPRESSION: There is no scintigraphic evidence of a neurodegenerative disorder (Parkinson's disease, Multisystem atrophy or Progressive supranuclear palsy), as there is symmetric uptake of I-123 Ioflupan (DaTscan) within the caudate nuclei and putamina.
== END | disposition home or self-care (01) ==
LOC: RADNMMAIN 11:11
PROVIDERS: ATTEND Internal Medicine
DX: R25.1 Tremor, unspecified (principal)
CPT/HCPCS: 78803; A9584

== ENCOUNTER 2024-08-11 17:29 | Emergency (ER) | payer MEDICARE ==
[2024-08-11 17:39] VITALS: RESP 18; TEMP 98.1
--- NOTE | 2024-08-11 18:32 | ED ---
Extremity Problem HPI - General Chief complaint: Extremity Problem,Nontraumatic Stated complaint: R Knee Pain Time Seen by Provider: 08/11/24 18:31 Source: patient, EMS, RN notes reviewed Mode of arrival: EMS - History of Present Illness Initial comments: 83-year-old female presenting to the ER with chief complaint of right knee pain. States she has had increasing right knee pain over the last several weeks, however reports worsening of pain with weightbearing today. States pain radiates to the right hip. Denies trauma or injury. 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 She has also experiencing pain into the right hip as well. Denies fever, chills, redness, calf pain or swelling. - Related Data Home Medications Medication Instructions Recorded Confirmed Apixaban [Eliquis] 2.5 mg PO BID 05/21/24 05/21/24 Calcium Carbonate/Vitamin D3 1 tab PO DAILY 05/21/24 05/21/24 [Calcium 600 mg-D3 20 mcg (800 unit)] Levothyroxine Sodium [Synthroid] 125 mcg PO DAILY 05/21/24 05/21/24 Metoprolol Tartrate [Lopressor] 12.5 mg PO BID 05/21/24 05/21/24 Multivit-Min/Iron/Folic/Lutein 1 tab PO DAILY 05/21/24 05/21/24 [Centrum Silver Women Tablet] Previous Rx's Medication Instructions Recorded Acetaminophen Tab [Tylenol] 650 mg PO Q6HR PRN tab 10/30/22 Allergies Allergy/AdvReac Type Severity Reaction Status Date / Time baclofen AdvReac constipatio Verified 05/21/24 08:10 n cephalexin [From Keflex] AdvReac Diarrhea Verified 05/21/24 08:10 dexamethasone AdvReac "does not Verified 05/21/24 08:10 work" fexofenadine [From Minerva] AdvReac unsteady Verified 05/21/24 08:10 gait gabapentin AdvReac headache Verified 05/21/24 08:10 hydrocodone AdvReac Dizziness Verified 05/21/24 08:10 levofloxacin [From Levaquin] AdvReac cannot Verified 05/21/24 08:10 sleep meloxicam [From Mobic] AdvReac Nausea Verified 05/21/24 08:10 nitrofurantoin AdvReac Diarrhea Verified 05/21/24 08:10 [From Macrobid] promethazine AdvReac Nausea & Verified 05/21/24 08:10 Vomiting & Diarrhea tramadol [From Ultram] AdvReac severe Verified 05/21/24 08:10 headache and n/v Review of Systems ROS Statement: Those systems with pertinent positive or pertinent negative responses have been documented in the HPI. ROS Other: All systems not noted in ROS Statement are negative. Past Medical History Past Medical History: Chest Pain / Angina, GERD/Reflux, Sleep Apnea/CPAP/BIPAP, Thyroid Disorder Additional Past Medical History / Comment(s): "low hemoglobin" ,sciatica, does not use cpap,urinary leakage History of Any Multi-Drug Resistant Organisms: ESBL Date of last positivie culture/infection: 12/06/23 MDRO Source:: Urine Past Surgical History: Joint Replacement, Orthopedic Surgery Additional Past Surgical History / Comment(s): thyroid surgery, rt knee arthroscopic x 2 and replacement,bladder susp,bladder procedure,pain clinic proc Past Anesthesia/Blood Transfusion Reactions: Previous Problems w/ Anesthesia, Postoperative Nausea & Vomiting (PONV) Additional Past Anesthesia/Blood Transfusion Reaction / Comment(s): took long time to come out Past Psychological History: No Psychological Hx Reported Smoking Status: Never smoker Past Alcohol Use History: None Reported Past Drug Use History: None Reported - Past Family History Father History Unknown: Yes Family Medical History: No Reported History Mother History Unknown: Yes Family Medical History: No Reported History Additional Family Medical History / Comment(s): "kidney problems" General Exam General appearance: alert, in no apparent distress Head exam: Present: atraumatic, normocephalic, normal inspection Right Hip exam: Present: normal inspection, full ROM. Absent: tenderness, swelling Upper Leg exam: Present: normal inspection, full ROM. Absent: tenderness, swelling Knee exam: Present: normal inspection (No popliteal tenderness), full ROM (Pain with flexion and extension), tenderness (Mild anterior tenderness to palpation). Absent: swelling, abrasion Lower Leg exam: Present: normal inspection, full ROM. Absent: tenderness, swelling Ankle exam: Present: normal inspection, full ROM. Absent: tenderness, swelling Foot/Toe exam: Present: normal inspection, full ROM. Absent: tenderness, swelling Neurovascular tendon exam: Present: no vascular compromise. Absent: pulse deficit, abnormal cap refill, sensory deficit Neurological exam: Present: alert, oriented X3 Psychiatric exam: Present: normal affect, normal mood Skin exam: Present: warm, dry, intact, normal color. Absent: rash Course Vital Signs 08/11/24 17:30 Temperature 98.1 F Pulse Rate 68 Respiratory 18 Rate Blood Pressure 167/93 O2 Sat by Pulse 99 Oximetry Medical Decision Making - Medical Decision Making Was pt. sent in by a medical professional or institution (, [facility], PUBLIC HEALTH DOCTOR, urgent care, hospital, or fdc...) When possible be specific @ -No Did you speak to anyone other than the patient for history (EMS, parent, family, police, friend...)? What history was obtained from this source @ -No Did you review nursing and triage notes (agree or disagree)? Why? @ -I reviewed and agree with nursing and triage notes Were old charts reviewed (outside hosp., previous admission, EMS record, old EKG, old radiological studies, urgent care reports/EKG's, fdc records)? Report findings @ -No old charts were reviewed Differential Diagnosis (chest pain, altered mental status, abdominal pain women, abdominal pain men, vaginal bleeding, weakness, fever, dyspnea, syncope, headache, dizziness, GI bleed, back pain, seizure, CVA, palpatations, mental health, musculoskeletal)? @ -Differential Musculoskeletal Muscular strain, contusion, ligament sprain, fracture, arthritis, septic arthritis, bursitis, cellulitis, muscle spasm, nerve compression, DVT, arterial occlusion, herpes zoster, electrolyte abnormality, tumor.... This is not meant to be in all inclusive list EKG interpreted by me (3pts min.). @ -None X-rays interpreted by me (1pt min.). @ -X-ray of right knee and right hip reveals post fixation changes in right hip arthroplasty appear intact, no evidence of acute fracture or acute osseous pathology CT interpreted by me (1pt min.). @ -None done U/S interpreted by me (1pt. min.). @ -None done What testing was considered but not performed or refused? (CT, X-rays, U/S, labs)? Why? @ -None What meds were considered but not given or refused? Why? @ -None Did you discuss the management of the patient with other professionals (professionals i.e. , PA, PUBLIC HEALTH DOCTOR, lab, RT, psych nurse, director of social media marketing, unscrambler, teacher, disabilities services officer, pillowcase folder)? Give summary @ -No Was smoking cessation discussed for >3mins.? @ -No Was critical care preformed (if so, how long)? @ -No Were there social determinants of health that impacted care today? How? (Homelessness, low income, unemployed, alcoholism, drug addiction, transportation, low edu. Level, literacy, decrease access to med. care, intermediate, rehab)? @ -No Was there de-escalation of care discussed even if they declined (Discuss DNR or withdrawal of care, Hospice)? DNR status @ -No What co-morbidities impacted this encounter? (DM, HTN, Smoking, COPD, CAD, Cancer, CVA, ARF, Chemo, Hep., AIDS, mental health diagnosis, sleep apnea, morbid obesity)? @ -None Was patient admitted / discharged? Hospital course, mention meds given and route, prescriptions, significant lab abnormalities, going to OR and other pertinent info. @ -Discharged. This is a 83-year-old female presenting to the ER with chief complaint of right knee pain. No trauma or injury. No sign of bacterial infection. Neurovascularly intact. She is able to weight-bear. X-ray of right knee and right hip revealed no acute process. Discussed negative findings with patient. Advised to follow-up with Dr. Camara if symptoms persist. Return p recautions discussed. Patient is agreeable to plan. Case was discussed with the ED attending Dr. Harrison. Patient discharged in stable condition. Undiagnosed new problem with uncertain prognosis? @ -No Drug Therapy requiring intensive monitoring for toxicity (Heparin, Nitro, Insulin, Cardizem)? @ -No Were any procedures done? @ -No Diagnosis/symptom? @ -Right knee pain Acute, or Chronic, or Acute on Chronic? @ -Acute Uncomplicated (without systemic symptoms) or Complicated (systemic symptoms)? @ -Uncomplicated Side effects of treatment? @ -No Exacerbation, Progression, or Severe Exacerbation? @ -No Poses a threat to life or bodily function? How? (Chest pain, [place], SC, pneumonia, PE, COPD, DKA, ARF, appy, cholecystitis, CVA, Diverticulitis, Homicidal, Suicidal, threat to staff... and all critical care pts) @ -No Disposition Clinical Impression: Right knee pain Disposition: HOME SELF-CARE Condition: Stable Instructions (If sedation given, give patient instructions): Knee Pain (ED) Additional Instructions: Follow-up with Dr. Camara as discussed. Please return to the Emergency Department if symptoms worsen or any other concerns. Is patient prescribed a controlled substance at d/c from ED?: No Referrals: Elliot Damon DO [Primary Care Provider] - 1-2 days Time of Disposition: 20:01
--- NOTE | 2024-08-11 19:07 | XR ---
EXAMINATION TYPE: XR knee complete RT DATE OF EXAM: 08/11/2024 6:49 PM CLINICAL INDICATION: Female, 83 years old with history of right hip/knee pain; COMPARISON: 10/29/2022 TECHNIQUE: XR knee complete RT; examined in Frontal, lateral and oblique projections. FINDINGS: Fixation changes to the knee and distal femur. Hardware appears intact. No evidence of any acute osseous pathology, soft tissue swelling, or joint effusion is noted. IMPRESSION: Post surgical changes, hardware appears intact, No acute osseous pathology. [facility], , 08/11/2024 7:05 PM
--- NOTE | 2024-08-11 19:09 | XR ---
EXAMINATION TYPE: XR Hip Complete RT DATE OF EXAM: 08/11/2024 6:49 PM CLINICAL INDICATION: Female, 83 years old with history of right hip/knee pain; COMPARISON: None. TECHNIQUE: XR Hip Complete RT; hip was examined in the frontal and lateral projections and a AP pelvi s. FINDINGS: Fixation hardware appears intact. Arthroplasty of the right hip appears intact. No evidence of fracture. No acute processes definitively visualized. IMPRESSION: 1. Post fixation changes and right hip arthroplasty appear intact. 2. No evidence for acute fracture. [facility], , 08/11/2024 7:07 PM
[2024-08-11] MEDS: ACETAMINOPHEN TAB 325 MG TAB PO STA (19:28)
[2024-08-11 20:21] VITALS: BP 163/85; PULSE 75
== END 2024-08-11 20:20 | disposition home or self-care (01) ==
LOC: EC 17:29
DX: M25.561 Pain in right knee
CPT/HCPCS: 73502; 99284

== ENCOUNTER → 2025-02-06 | Outpatient (CLI) | payer MEDICARE ==
--- NOTE | 2025-02-06 15:55 | US ---
EXAMINATION TYPE: US kidneys/renal and bladder DATE OF EXAM: 02/06/2025 COMPARISON: CT abdomen and pelvis May 21 2024 CLINICAL INDICATION: Female, 84 years old with history of N39.0 URINARY TRACT INFECTION, SITE NOT SPE CIFIED; TECHNIQUE: Grayscale imaging of the bilateral kidneys and urinary bladder: FINDINGS: EXAM MEASUREMENTS: Right Kidney: 7.4 x 2.9 x 3.7 cm Left Kidney: 10.0 x 4.1 x 4.2 cm Right Kidney: small in size when compared to left kidney, 0.5cm echogenic focus lateral superior pole Left Kidney: wnl Bladder: wnl Bilateral Jets seen: no There is no evidence for hydronephrosis at this point in time. No nephrolithiasis is seen. No daron s are identified. The urinary bladder is anechoic. Diminished size right kidney is felt technical IMPRESSION: No hydronephrosis is seen bilaterally. Urinary bladder is anechoic. [facility], , 02/06/2025 3:53 PM
== END | disposition home or self-care (01) ==
LOC: RADUSWWP 15:14
PROVIDERS: ATTEND Internal Medicine Infectious Disease
DX: N39.0 Urinary tract infection, site not specified (principal)
CPT/HCPCS: 76770